=== PATIENT | female | born 1950 | race Caucasian/White ===

== ENCOUNTER 2024-11-18 21:29 | Inpatient (IN) ==
--- NOTE | 2024-11-18 22:10 | Emergency Department Note ---
History of Present Illness General Chief complaint: Syncope (Near Syncope) Stated complaint: Near Syncope, Dizziness Time Seen by Provider: 11/18/24 21:39 History of Present Illness Maximum Pain Intensity: 0 This 74-year-old female with a history of iron deficiency anemia on iron tablets since May presents to the ER feeling unwell for the past 3 days and near syncope today. Patient states she feels like her anemia is getting worse. Colonoscopy in the past was normal. No recent endoscopy. She takes Motrin 40 mg twice daily along with a PPI. Patient denies chest pain, dyspnea, abdominal pain, black or blood in the stool, fever, chills, flulike illness, leg pain or swelling. No history of heart failure. No other blood thinners. No heart attack or stroke. Home Medications Medication Instructions Recorded Confirmed Type Collagen Tablets 1 dose PO DAILY 11/18/24 11/18/24 History atenolol 25 mg tablet 25 mg PO DAILY 11/18/24 11/18/24 History clonidine HCl 0.1 mg tablet 0.1 mg PO BID 11/18/24 11/18/24 History escitalopram oxalate 10 mg tablet 15 mg PO DAILY 11/18/24 11/18/24 History ferrous sulfate 325 mg (65 mg 325 mg PO DAILY 11/18/24 11/18/24 History iron) tablet (iron) ibuprofen 200 mg tablet 400 mg PO BID ARTHRITIS PAIN 11/18/24 11/18/24 History inulin 2 gram chewable tablet 2 g PO DAILY 11/18/24 11/18/24 History montelukast 10 mg tablet 10 mg PO DAILY 11/18/24 11/18/24 History omeprazole magnesium 20 mg 20 mg PO DAILY 11/18/24 11/18/24 History tablet,delayed release (Prilosec OTC) potassium chloride 10 mEq 10 meq PO DAILY 11/18/24 11/18/24 History tablet,extended release rosuvastatin 10 mg tablet 10 mg PO DAILY 11/18/24 11/18/24 History Allergies Allergy/AdvReac Type Severity Reaction Status Date / Time sunflower oil Allergy Severe Anaphylaxis Verified 11/18/24 22:37 /HIVES sunflower seed Allergy Severe Anaphylaxis Verified 11/18/24 22:37 /HIVES gluten Allergy Intermediate Gastrointestinal Verified 11/18/24 22:37 Upset Past Med/Surg History Problem List (Updated 11/18/24 @ 23:42 by Jennifer Yun PA-C) UTI (urinary tract infection) Obesity hypoventilation syndrome Symptomatic anemia (Acute) Dysuria Pre-syncope (Acute) GI bleed due to NSAIDs (Acute) Dyslipidemia Environmental and seasonal allergies Hypertension Medical History Dyslipidemia Environmental and seasonal allergies Hypertension Surgical History History of breast reconstruction History of colonoscopy History of gastric bypass History of mastectomy Social History Smoking Status: Never smoker Preferred Language: Estonian Feels Safe at Home: Yes Review of Systems A total of 10 systems reviewed and were otherwise negative Physical Exam Vital Signs Vital Signs - 24 hr 11/18/24 21:30 11/18/24 21:35 11/18/24 21:37 Temperature 36.8 C Temperature Source Oral Pulse Rate - Lying Pulse Rate - Sitting Pulse Rate - Standing Pulse Rate 84 96 H Pulse Rate from SpO2 Sensor Respiratory Rate 21 Respiratory Effort / Characteristics Non-Labored Spontaneous Respiratory Depth Normal Respiratory Pattern Regular Blood Pressure - Lying Blood Pressure - Sitting Blood Pressure- Standing Blood Pressure 182/95 H 126/97 Blood Pressure Mean 124 108 Blood Pressure Position Lying Pulse Oximetry 97 Oxygen Delivery Method Room Air Sepsis Recent Fever Within 48 Hours No Sepsis New/Unexplained Change in Mental Status No Sepsis Action Taken by Nursing No Action Required 11/18/24 21:41 11/18/24 21:45 11/18/24 21:45 Temperature Temperature Source Pulse Rate - Lying 84 Pulse Rate - Sitting 97 H Pulse Rate - Standing 139 H Pulse Rate Pulse Rate from SpO2 Sensor Respiratory Rate Respiratory Effort / Characteristics Respiratory Depth Respiratory Pattern Blood Pressure - Lying 182/95 H Blood Pressure - Sitting 178/111 H Blood Pressure- Standing 126/97 Blood Pressure 169/106 H Blood Pressure Mean 141 Blood Pressure Position Pulse Oximetry 97 Oxygen Delivery Method Room Air Sepsis Recent Fever Within 48 Hours Sepsis New/Unexplained Change in Mental Status Sepsis Action Taken by Nursing 11/18/24 21:45 11/18/24 22:03 11/18/24 22:21 Temperature Temperature Source Pulse Rate - Lying Pulse Rate - Sitting Pulse Rate - Standing Pulse Rate 97 H 98 H 103 H Pulse Rate from SpO2 Sensor 99 H 96 H 106 H Respiratory Rate 18 13 23 Respiratory Effort / Characteristics Respiratory Depth Respiratory Pattern Blood Pressure - Lying Blood Pressure - Sitting Blood Pressure- Standing Blood Pressure Blood Pressure Mean Blood Pressure Position Pulse Oximetry 98 97 94 Oxygen Delivery Method Sepsis Recent Fever Within 48 Hours Sepsis New/Unexplained Change in Mental Status Sepsis Action Taken by Nursing 11/18/24 23:03 11/18/24 23:18 11/18/24 23:18 Temperature Temperature Source Pulse Rate - Lying Pulse Rate - Sitting Pulse Rate - Standing Pulse Rate 150 H 88 91 H Pulse Rate from SpO2 Sensor 85 Respiratory Rate 24 17 Respiratory Effort / Characteristics Respiratory Depth Respiratory Pattern Blood Pressure - Lying Blood Pressure - Sitting Blood Pressure- Standing Blood Pressure Blood Pressure Mean Blood Pressure Position Pulse Oximetry 97 Oxygen Delivery Method Sepsis Recent Fever Within 48 Hours Sepsis New/Unexplained Change in Mental Status Sepsis Action Taken by Nursing 11/18/24 23:21 11/18/24 23:33 Temperature Temperature Source Pulse Rate - Lying Pulse Rate - Sitting Pulse Rate - Standing Pulse Rate 88 105 H Pulse Rate from SpO2 Sensor 88 102 H Respiratory Rate 18 23 Respiratory Effort / Characteristics Respiratory Depth Respiratory Pattern Blood Pressure - Lying Blood Pressure - Sitting Blood Pressure- Standing Blood Pressure Blood Pressure Mean Blood Pressure Position Pulse Oximetry 99 95 Oxygen Delivery Method Sepsis Recent Fever Within 48 Hours Sepsis New/Unexplained Change in Mental Status Sepsis Action Taken by Nursing VITALS: Vitals are noted on the nurse's note and reviewed by myself. Vital signs stable. GENERAL: Pleasant female, in no acute distress, nondiaphoretic, well-developed well-nourished. SKIN: The skin was without rashes, erythema, edema, or bruising. There is no tenting of the skin. Capillary reflex less than 2 seconds. HEAD: Normocephalic atraumatic. EARS: External auditory canals clear EYES: Pupils equal round and reactive to light and accommodation. Conjunctivae without injection, sclerae without icterus. Extraocular movements intact. NOSE: Patent, no discharge. MOUTH: Mucous membranes moist. Pharynx without erythema or exudate. Uvula midline. Airway patent. Tongue does not deviate. NECK: Supple without nuchal rigidity. No lymphadenopathy. No thyromegaly. Cervical spine is nontender. No JVD. HEART: Regular rate and rhythm LUNGS: Clear to auscultation bilaterally without wheezes, rales or rhonchi. No retractions or accessory muscle use. ABDOMEN: Positive bowel sounds x 4. Normal tympanic percussion. Soft, nontender, without masses or organomegaly. Gaines sign negative. No guarding or rebound tenderness. No CVA tenderness Rectal Exam: Dark stool, guaiac positive. Mangle Roller present of the nurse MUSCULOSKELETAL: No muscle atrophy, erythema, or edema noted. NEURO: Patient was alert and oriented to person place and time. Normal sensation to light and sharp touch. No focal neurological deficits. Course Administered Medications Discontinued Medications Sodium Chloride (Nss) 500 mls @ 999 mls/hr IV .Q31M ONE Stop: 11/18/24 22:15 Last Infusion: 11/18/24 23:29 Dose: Infused Documented By: Admin: 11/18/24 22:25 Dose: 999 mls/hr Documented By: DENNISE Pantoprazole Sodium 80 mg/ (Dextrose) 120 mls @ 480 mls/hr IV ONE STA Stop: 11/18/24 22:59 Last Admin: 11/18/24 23:02 Dose: 480 mls/hr Documented By: ARIELLA Famotidine (Pepcid 20mg Iv Push) 20 mg in 5 mls @ 2.5 mls/min IV NOW STA Stop: 11/18/24 22:46 Last Admin: 11/18/24 23:03 Dose: 2.5 mls/min Documented By: ARIELLA Critical Care Time Critical Care Time: Yes Total Critical Care Time: 35 I have personally spent 35 minutes of critical care time in the direct management of this patient. This includes bedside care, interpretation of diagnostic studies, and testing, discussion with consultants, patient, and family members, and other required patient management activities. This 35 minutes is in excess of all separately billable procedures. Medical Decision Making Medical Records Attestation: I reviewed the patient's medical records. Home Medications Current Medication List: was personally reviewed by me Laboratory Data Attestation: I reviewed the patient's lab results. 11/18/24 22:31 11/18/24 22:31 Lab Results 11/18/24 11/18/24 11/18/24 Range/Units 21:57 22:31 22:36 WBC 10.61 (4.8-10.8) K/ul RBC 3.07 L (4.20-5.40) M/uL Hgb 7.8 L (12.0-16.0) g/dl POC Hgb 8.2 L (12.0-16.0) g/dl Hct 24.8 L (37.0-47.0) % POC Hct 24 L (37-47) % MCV 80.8 (80.0-100.0) fL MCH 25.4 (25.0-34.0) pg MCHC 31.5 L (32.0-36.0) g/dL RDW Std Deviation 51.0 H (36.4-46.3) fL RDW Coeff of Farooq 17.7 H (11.5-14.5) % Plt Count 305 (130-400) K/uL MPV 10.2 (9.4-12.4) fL Immature Gran % (Auto) 0.6 % Neut % (Auto) 73.9 % Lymph % (Auto) 17.0 % [place] % (Auto) 6.8 % Eos % (Auto) 1.1 % Baso % (Auto) 0.6 % Neut # (Auto) 7.85 H (1.40-6.50) K/uL Lymph # (Auto) 1.80 (1.20-3.40) K/uL [place]ks # (Auto) 0.72 H (0.11-0.59) K/uL Eos # (Auto) 0.12 (0.00-0.50) K/uL Baso # (Auto) 0.06 (0.00-0.20) K/uL Immature Gran # (Auto) 0.06 (0.01-0.20) K/uL Polychromasia 1+ Ovalocytes 1+ POC Sodium 136 (135-144) mmol/L Sodium 135 L (136-145) mmol/L POC Potassium 4.5 (3.3-5.0) mmol/L Potassium 4.3 (3.5-5.1) mmol/L POC Chloride 105 (101-112) mmol/L Chloride 105 (98-107) mmol/L Carbon Dioxide 21 (21-32) mmol/L POC Total CO2 23 L (24-31) mmol/L Anion Gap 9 (3-11) POC Anion Gap 13.0 L (16-25) mmol/L POC BUN 39 H (7-18) mg/dl BUN 39 H (6-23) mg/dl Creatinine 0.78 (0.6-1.2) mg/dl POC Creatinine 0.9 (0.6-1.3) mg/dl Est Cr Clr Drug Dosing 74.3 ml/min eGFR 80.15 BUN/Creatinine Ratio 50.0 H (10-20) Glucose 163 H (70-99(Fasting)) mg/dl POC Glucose (other) 160 H (70-99) mg/dl Calcium 9.4 (8.6-10.3) mg/dl POC Ioniz Calcium Alicia 1.15 (1.12-1.32) mmol/l Magnesium 1.9 (1.7-2.4) mg/dl Total Bilirubin 0.3 (0.2-1.0) mg/dl AST 18 (13-39) U/L ALT 14 (7-52) U/L Alkaline Phosphatase 49 (34-104) U/L Troponin I High Sens < 2.3 (0-14) pg/ml Total Protein 6.4 (6.0-8.3) gm/dl Albumin 3.9 (3.4-5.0) gm/dl Globulin 2.5 (2.5-4.0) gm/dl Albumin/Globulin Ratio 1.6 (0.9-2) TSH 2.282 (0.300-4.500) uIu/ml Urine Color Urine Appearance (Clear) Urine pH (4.5-7.5) Ur Specific [place] (1.000-1.030) Urine Protein (Negative) Urine Glucose (UA) (Negative) Urine Ketones (Negative) Urine Blood (Negative) Urine Nitrite (Negative) Urine Bilirubin (Negative) Urine Urobilinogen (Negative) Ur Leukocyte Esterase (Negative) Urine WBC (Auto) (0-5) /hpf Urine RBC (Auto) (0-2) /hpf U Hyaline Cast (Auto) (0-2) /lpf U Epithel Cells (Auto) (0-2) /hpf Urine Bacteria (Auto) (None Seen) Adenovirus (PCR) Not Detected (NotDetected) B. pertussis DNA (PCR) Not Detected (NotDetected) B.parapertussis DNA PCR Not Detected (NotDetected) C. pneumoniae DNA (PCR) Not Detected (NotDetected) Coronavirus OC43 (PCR) Not Detected (NotDetected) Coronavirus HKU1 (PCR) Not Detected (NotDetected) Coronavirus 229E (PCR) Not Detected (NotDetected) SARS-CoV-2 (PCR) Not Detected (NotDetected) Coronavirus NL63 (PCR) Not Detected (NotDetected) Human Metapneumovir PCR Not Detected (NotDetected) Influenza Type A (PCR) Not Detected (NotDetected) Influenza Type B (PCR) Not Detected (NotDetected) M. pneumoniae (PCR) Not Detected (NotDetected) Parainfluenza 1 (PCR) Not Detected (NotDetected) Parainfluenza 2 (PCR) Not Detected (NotDetected) Parainfluenza 3 (PCR) Not Detected (NotDetected) Parainfluenza 4 (PCR) Not Detected (NotDetected) RSV (PCR) Not Detected (NotDetected) Entero/Rhino (PCR) Not Detected (NotDetected) Crossmatch 11/18/24 11/18/24 Range/Units 23:03 23:18 WBC (4.8-10.8) K/ul RBC (4.20-5.40) M/uL Hgb (12.0-16.0) g/dl POC Hgb (12.0-16.0) g/dl Hct (37.0-47.0) % POC Hct (37-47) % MCV (80.0-100.0) fL MCH (25.0-34.0) pg MCHC (32.0-36.0) g/dL RDW Std Deviation (36.4-46.3) fL RDW Coeff of Farooq (11.5-14.5) % Plt Count (130-400) K/uL MPV (9.4-12.4) fL Immature Gran % (Auto) % Neut % (Auto) % Lymph % (Auto) % [place] % (Auto) % Eos % (Auto) % Baso % (Auto) % Neut # (Auto) (1.40-6.50) K/uL Lymph # (Auto) (1.20-3.40) K/uL [place] # (Auto) (0.11-0.59) K/uL Eos # (Auto) (0.00-0.50) K/uL Baso # (Auto) (0.00-0.20) K/uL Immature Gran # (Auto) (0.01-0.20) K/uL Polychromasia Ovalocytes POC Sodium (135-144) mmol/L Sodium (136-145) mmol/L POC Potassium (3.3-5.0) mmol/L Potassium (3.5-5.1) mmol/L POC Chloride (101-112) mmol/L Chloride (98-107) mmol/L Carbon Dioxide (21-32) mmol/L POC Total CO2 (24-31) mmol/L Anion Gap (3-11) POC Anion Gap (16-25) mmol/L POC BUN (7-18) mg/dl BUN (6-23) mg/dl Creatinine (0.6-1.2) mg/dl POC Creatinine (0.6-1.3) mg/dl Est Cr Clr Drug Dosing ml/min eGFR BUN/Creatinine Ratio (10-20) Glucose (70-99(Fasting)) mg/dl POC Glucose (other) (70-99) mg/dl Calcium (8.6-10.3) mg/dl POC Ioniz Calcium Alicia (1.12-1.32) mmol/l Magnesium (1.7-2.4) mg/dl Total Bilirubin (0.2-1.0) mg/dl AST (13-39) U/L ALT (7-52) U/L Alkaline Phosphatase (34-104) U/L Troponin I High Sens (0-14) pg/ml Total Protein (6.0-8.3) gm/dl Albumin (3.4-5.0) gm/dl Globulin (2.5-4.0) gm/dl Albumin/Globulin Ratio (0.9-2) TSH (0.300-4.500) uIu/ml Urine Color Yellow Urine Appearance Clear (Clear) Urine pH 5.5 (4.5-7.5) Ur Specific [place] 1.018 (1.000-1.030) Urine Protein Negative (Negative) Urine Glucose (UA) Negative (Negative) Urine Ketones Trace H (Negative) Urine Blood Negative (Negative) Urine Nitrite Positive A (Negative) Urine Bilirubin Negative (Negative) Urine Urobilinogen Negative (Negative) Ur Leukocyte Esterase 1+ H (Negative) Urine WBC (Auto) 6-10 H (0-5) /hpf Urine RBC (Auto) 0-2 (0-2) /hpf U Hyaline Cast (Auto) 0-2 (0-2) /lpf U Epithel Cells (Auto) 0-2 (0-2) /hpf Urine Bacteria (Auto) 4+ H (None Seen) Adenovirus (PCR) (NotDetected) B. pertussis DNA (PCR) (NotDetected) B.parapertussis DNA PCR (NotDetected) C. pneumoniae DNA (PCR) (NotDetected) Coronavirus OC43 (PCR) (NotDetected) Coronavirus HKU1 (PCR) (NotDetected) Coronavirus 229E (PCR) (NotDetected) SARS-CoV-2 (PCR) (NotDetected) Coronavirus NL63 (PCR) (NotDetected) Human Metapneumovir PCR (NotDetected) Influenza Type A (PCR) (NotDetected) Influenza Type B (PCR) (NotDetected) M. pneumoniae (PCR) (NotDetected) Parainfluenza 1 (PCR) (NotDetected) Parainfluenza 2 (PCR) (NotDetected) Parainfluenza 3 (PCR) (NotDetected) Parainfluenza 4 (PCR) (NotDetected) RSV (PCR) (NotDetected) Entero/Rhino (PCR) (NotDetected) Crossmatch See Detail Imaging Data Attestation: I personally reviewed and interpreted this imaging study as follows: Radiologist's Impression: Chest X-Ray 11/18/24 21:45 Exam(s): XR CXR 1 VIEW EXAM: XR Chest, 1 View CLINICAL HISTORY: Reason for exam: near syncope, weakness. TECHNIQUE: Frontal view of the chest. COMPARISON: 03/24/2022. FINDINGS: Lungs: No consolidation. Pleural space: No pleural effusion is seen. No pneumothorax. Heart: The heart is top normal in size.. Mediastinum: There is mild uncoiling of thoracic aorta.. . Additional: Surgical clips are again noted IMPRESSION: No acute pulmonary disease. Findings appears similar to previous exam Electronically signed by: Solo Calvert MD 11/18/24 22:[address] 11/18/24 22:23 Exam(s): CT HEAD Without Contrast EXAM: CT Head Without Intravenous Contrast CLINICAL HISTORY: Reason for exam: weakness, hx breast CA, syncope. TECHNIQUE: Axial computed tomography images of the head/brain without intravenous contrast. CTDI is 38.64 mGy and DLP is 625.8 mGy-cm. Automated exposure control was utilized for the study. A dose lowering technique was utilized adhering to the principles of ALARA. COMPARISON: No relevant prior studies available. FINDINGS: Brain: No acute intracranial hemorrhage. There is decreased attenuation within the white matter. 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 Ventricles: There is prominence of ventricular system with deepening of the sulci consistent with cortical and central atrophy. Bones/joints: Unremarkable. No acute fracture. Soft tissues: Unremarkable. Sinuses: There is near complete opacification of the right maxillary sinus.. Mastoid air cells: Unremarkable as visualized. No mastoid effusion. IMPRESSION: Atrophy. Nonspecific white matter disease. 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 There is right maxillary sinus disease. If further evaluation is clinically necessary, consider correlation with MRI. Electronically signed by: Solo Calvert MD 11/18/24 23:07 PM MDM Narrative Prior records/ancillary studies reviewed and summarized above. Nursing notes reviewed. Additional history obtained from nursing. The patient's history was concerning for increasing weakness for the past 3 days. Differential diagnosis: Etiologies such as worsening anemia, metabolic, infection, hypo/hyperglycemia, electrolyte abnormalities, cardiac sources, intracerebral event, toxicologic, neurologic, as well as others were entertained. Physical examination: As above. ER treatment provided: IV Lock An order was placed for continuous cardiac monitoring. The monitor shows a rate of 60-100 with a sinus rhythm per my interpretation. IV fluids, protonix, pepcid, Rocephin for UTI Patient was consented to blood and was typed and crossmatched for 1 unit On reassessment the patient felt better. Diagnostics interpretation by me: ECG: Ordered for weakness EKG: Poor baseline, normal sinus, no acute ST-T wave changes, rate of 98. Impression normal sinus rhythm poor baseline independently interpreted by myself The labs Independently Interpreted by myself revealed anemia which is worse than baseline per review of the [facility] records Negative troponin. Negative BioFire Mild hyperglycemia without DKA, urine concerning for infection and sent for culture. Patient given Rocephin Imaging studies: Chest x-ray with no acute consolidation, pneumothorax or free air per my independent interpretation Consultation: A consultation was placed with the hospitalist. The case was discussed and diagnostics were reviewed. The patient was evaluated in the ER for further treatment. Exam and history seem consistent with symptomatic anemia most likely related to NSAID use. Patient was typed and crossmatched for 1 unit. She was consented for blood. She started Protonix and Pepcid. She was reevaluated. Hemoccult was positive. She is agreeable to treatment plan of admission. Medicine was consulted and the case was discussed. By the evaluation outlined above emergent etiologies such as electrolyte abnormalities, cardiac sources, intracerebral event, toxologic, neurologic, metabolic, as well as others were deemed relatively unlikely. The pt informed about the findings as listed above. All questions were answered and pleased with the treatment. The chart was completed utilizing [employer] Speech voice recognition software. Grammatical errors, random word insertions, pronoun errors, and incomplete sentences are an occassional consequence of this system due to software limitations, ambient noise, and hardware issues. Any formal questions or concerns about the content, text, or information contained within the body of this dictation should be directly addressed to the physician assistant program manager for clarification. Impression & Plan GI bleed due to NSAIDs, Pre-syncope, Symptomatic anemia Discharge Plan Visit Data Chief Complaint: Syncope (Near Syncope) Stated Complaint: Near Syncope, Dizziness ED Provider: Landon Chilel ED Midlevel Provider: Jaylin Guerra Discharge Problem: GI bleed due to NSAIDs, Pre-syncope, Symptomatic anemia Patient Disposition: Admitted As Inpatient Condition: Fair Forms Stand Alone Forms: [facility] [employer] Prescriptions Prescriptions: No Action clonidine HCl 0.1 mg tablet 0.1 mg PO BID atenolol 25 mg tablet 25 mg PO DAILY potassium chloride 10 mEq tablet extended release 10 meq PO DAILY ferrous sulfate [iron] 325 mg (65 mg iron) Tablet 325 mg PO DAILY ibuprofen 200 mg Tablet 400 mg PO BID montelukast 10 mg tablet 10 mg PO DAILY escitalopram oxalate 10 mg tablet 15 mg PO DAILY rosuvastatin 10 mg tablet 10 mg PO DAILY omeprazole magnesium [Prilosec OTC] 20 mg Tablet,Delayed Release (Dr/Ec) 20 mg PO DAILY Fiber Gummies 2 gram Tablet,Chewable 2 g PO DAILY Collagen Tablets 1 dose PO DAILY Rx Instructions: PT UNSURE OF STRENGTH. Referrals Referrals: Ann Abbasi MD [Primary Care Provider] -
[2024-11-18] MEDS: SODIUM CHLORIDE 0.9% 500 ML IV ONE (22:25)
[2024-11-18 22:48] LABS: iSTAT Creatinine 0.9 mg/dl (0.6-1.3); iSTAT Hemoglobin 8.2 g/dl (12.0-16.0); iSTAT Ionized Calcium 1.15 mmol/l (1.12-1.32); iSTAT Potassium 4.5 mmol/L (3.3-5.0)
[2024-11-18 22:50] LABS: Basophils # (auto) 0.06 K/uL (0.00-0.20); Basophils % (auto) 0.6 %; Eosinophils # (auto) 0.12 K/uL (0.00-0.50); Eosinophils % (auto) 1.1 %; Hematocrit (blood only) 24.8 % (37.0-47.0); Hemoglobin 7.8 g/dl (12.0-16.0); Immature Granulocytes # (auto) 0.06 K/uL (0.01-0.20); Immature Granulocytes % (auto) 0.6 %; Mean Corpuscular Hemoglobin 25.4 pg (25.0-34.0); Mean Corpuscular Hgb Conc 31.5 g/dL (32.0-36.0); Mean Corpuscular Volume 80.8 fL (80.0-100.0); Mean Platelet Volume 10.2 fL (9.4-12.4); Monocytes # (auto) 0.72 K/uL (0.11-0.59); Monocytes % (auto) 6.8 %; Neutrophils # (auto) 7.85 K/uL (1.40-6.50); Neutrophils % (auto) 73.9 %; Platelet Count 305 K/uL (130-400); RDW Coefficient of Variation 17.7 % (11.5-14.5); Red Blood Count 3.07 M/uL (4.20-5.40); White Blood Count 10.61 K/ul (4.8-10.8)
--- NOTE | 2024-11-18 22:54 | XRay Report ---
Exam(s): XR CXR 1 VIEW EXAM: XR Chest, 1 View CLINICAL HISTORY: Reason for exam: near syncope, weakness. TECHNIQUE: Frontal view of the chest. COMPARISON: 03/24/2022. FINDINGS: Lungs: No consolidation. Pleural space: No pleural effusion is seen. No pneumothorax. Heart: The heart is top normal in size.. Mediastinum: There is mild uncoiling of thoracic aorta.. . Additional: Surgical clips are again noted IMPRESSION: No acute pulmonary disease. Findings appears similar to previous exam Electronically signed by: Solo Calvert MD 11/18/24 22:52 PM
[2024-11-18 22:57] LABS: Adenovirus PCR Not Detected (NotDetected); Bordetella parapertussis PCR Not Detected (NotDetected); Bordetella pertussis PCR Not Detected (NotDetected); Chlamydia pneumoniae PCR Not Detected (NotDetected); Coronavirus 229E PCR Not Detected (NotDetected); Coronavirus CoV-2 (COVID19)PCR Not Detected (NotDetected); Coronavirus HKU1 PCR Not Detected (NotDetected); Coronavirus NL63 PCR Not Detected (NotDetected); Coronavirus OC43PCR Not Detected (NotDetected); Human Metapneumovirus PCR Not Detected (NotDetected); Influenza A PCR Not Detected (NotDetected); Influenza B PCR Not Detected (NotDetected); Mycoplasma pneumoniae PCR Not Detected (NotDetected); Parainfluenza Virus 1 PCR Not Detected (NotDetected); Parainfluenza Virus 2 PCR Not Detected (NotDetected); Parainfluenza Virus 3 PCR Not Detected (NotDetected); Parainfluenza Virus 4 PCR Not Detected (NotDetected); Respiratory Syncytial VirusPCR Not Detected (NotDetected); Rhinovirus/Enterovirus PCR Not Detected (NotDetected)
[2024-11-18] MEDS: PANTOprazole 80 MG in DEXTROSE 5% 100 ML IV STA (23:02)
[2024-11-18] MEDS: FAMOTIDINE 20MG IV PUSH 20 MG/5 ML SYR IV STA (23:03)
[2024-11-18 23:05] LABS: Ovalocytes 1+; Polychromasia 1+
[2024-11-18] MEDS ORDERED: SODIUM CHLORIDE 0.9% 100 ML IV PRN (23:08)
--- NOTE | 2024-11-18 23:08 | CT Scan Report ---
Exam(s): CT HEAD Without Contrast EXAM: CT Head Without Intravenous Contrast CLINICAL HISTORY: Reason for exam: weakness, hx breast CA, syncope. TECHNIQUE: Axial computed tomography images of the head/brain without intravenous contrast. CTDI is 38.64 mGy and DLP is 625.8 mGy-cm. Automated exposure control was utilized for the study. A dose lowering technique was utilized adhering to the principles of ALARA. COMPARISON: No relevant prior studies available. FINDINGS: Brain: No acute intracranial hemorrhage. There is decreased attenuation within the white matter. 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 Ventricles: There is prominence of ventricular system with deepening of the sulci consistent with cortical and central atrophy. Bones/joints: Unremarkable. No acute fracture. Soft tissues: Unremarkable. Sinuses: There is near complete opacification of the right maxillary sinus.. Mastoid air cells: Unremarkable as visualized. No mastoid effusion. IMPRESSION: Atrophy. Nonspecific white matter disease. 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 There is right maxillary sinus disease. If further evaluation is clinically necessary, consider correlation with MRI. Electronically signed by: Solo Calvert MD 11/18/24 23:07 PM
[2024-11-18 23:11] LABS: Troponin I High Sensitivity < 2.3 pg/ml (0-14)
[2024-11-18 23:20] LABS: Thyroid Stimulating Hormone 2.282 uIu/ml (0.300-4.500)
--- NOTE | 2024-11-18 23:22 | History & Physical Report ---
Date of Service November 18, 2024 Assessment & Plan (1) GI bleed due to NSAIDs: (2) Pre-syncope: (3) UTI (urinary tract infection): (4) Obesity hypoventilation syndrome: (5) Hypertension: Plan Patient is a 74-year-old female with past medical history of allergies, hypertension, hyperlipidemia, GERD. She presented to the ED via EMS due to a near syncopal event, she reports dizziness, lightheadedness, nausea, dry heaving, and burning with urination. She also endorses dark stools and is on chronic Motrin 400 Mg twice daily. Patient was found to have a hemoglobin drop from around 15to 7.8 and Hemoccult positive. She is being admitted for a GI bleed. 1 unit PRBC ordered in ED to be transfused at time of admission. #GI bleed on chronic Motrin 400 Mg twice daily, history of CLAIRE on iron supplements hx of gastric bypass VSS Hemoccult positive in ED BUN 39 hemoglobin 7.8 (baseline reported around 15) TSH WNL Protonix 40 mg IV twice daily and Pepcid 20 mg IV BID N.p.o. - will hold p.o. medications - received 500 mL NSS bolus in ED, continue IVF resuscitation with LR at 80 mL/hour x 1 bag 1 unit PRBC ordered to be transfused in ED H&H recheck after 1 unit transfused trend CBC GI consulted #Presyncopal event Suspect 2/2 symptomatic anemia as above CXR negative Head CT showed fusiform dilation of basilar artery, right maxillary sinus disease consider correlation with MRI if clinically indicated Troponin < 2.3 Bedrest and fall precautions 500 mL NSS bolus in ED anticipate to improve with correction of above Monitor on telemetry #UTI Patient with dysuria UA positive for nitrates, 1+ leukocyte esterase, 6-10 WBC, 4+ bacteria No previous urine cultures on file Will cover with Rocephin 1G IV q24h Follow urine cultures #Obesity hypoventilation syndrome became hypoxic when she sat up in bed at 79% on room air, improved with deep breaths CXR negative oxygen as needed for O2 less than 94% Incentive spirometry ordered #HTN holding atenolol and clonidine with n.p.o. status monitor for rebound HTN with holding clonidine Lopressor 5mg IV q6h prn for SBP >185 and DBP >95 Chronic stable diagnoses: Anxiety/depressionholding escitalopram HLDholding statin VTE ppx: SCDs, defer chemical PPx with GI bleed above Diet: n.p.o. Dispo: PCU Admission and Anticipated Discharge Date Admission Date: 11/18/24 History of Present Illness Chief Complaint: syncope Primary Care Provider: Ann Abbasi MD Patient is a 74-year-old female with past medical history of allergies, hypertension, hyperlipidemia, GERD, hx of gastric bypass. She presented to the ED via EMS due to a near syncopal event, she reports dizziness, lightheadedness, nausea, dry heaving, and burning with urination. She also endorses dark stools and is on chronic Motrin 400 Mg twice daily. Patient was found to have a hemoglobin drop from around 15to 7.8 and Hemoccult positive. She is being admitted for a GI bleed. 1 unit pRBC ordered in ED to be transfused at time of admission. Patient seen at bedside with her daughter present. She has a history of gastric bypass. She stated she had a colonoscopy approximately 1 year ago possibly with [facility] that she stated showed a few polyps but no other abnormalities. She has never had an EGD. She came into the ED today because she felt like she was going to pass out when she was going to the bathroom with dizziness, lightheadedness, and fatigue. She stated for quite a while she has had dizziness, lightheadedness, fatigue, dyspnea on exertion. She was started on an iron supplement in May for iron deficiency anemia. When the symptoms began she started taking 2 a day which seemed to resolve her symptoms at first but now her symptoms have returned. She has no history of GI bleeds. She has been taking Motrin 400 Mg twice daily with omeprazole for several years. She has had dark brown stool, denies it being black for several months since starting the iron supplement. She denies any bright red blood in stool or vomiting up any bright red blood. Patient also endorses burning with urination for several days. She does not use nicotine products or drink alcohol daily. She has no history of lung disorders like COPD, asthma, JUAN. She took her home medications this morning but is due for her evening medications, will hold given n.p.o. status. She wishes to be full code. Patient agreeable to plan and 1 unit PRBC transfusion. Allergies Allergy/AdvReac Type Severity Reaction Status Date / Time sunflower oil Allergy Severe Anaphylaxis Verified 11/18/24 22:37 /HIVES sunflower seed Allergy Severe Anaphylaxis Verified 11/18/24 22:37 /HIVES gluten Allergy Intermediate Gastrointestinal Verified 11/18/24 22:37 Upset Home Medications Medication Instructions Recorded Confirmed Type Collagen Tablets 1 dose PO DAILY 11/18/24 11/18/24 History atenolol 25 mg tablet 25 mg PO DAILY 11/18/24 11/18/24 History clonidine HCl 0.1 mg tablet 0.1 mg PO BID 11/18/24 11/18/24 History escitalopram oxalate 10 mg tablet 15 mg PO DAILY 11/18/24 11/18/24 History ferrous sulfate 325 mg (65 mg 325 mg PO DAILY 11/18/24 11/18/24 History iron) tablet (iron) ibuprofen 200 mg tablet 400 mg PO BID ARTHRITIS PAIN 11/18/24 11/18/24 History inulin 2 gram chewable tablet 2 g PO DAILY 11/18/24 11/18/24 History montelukast 10 mg tablet 10 mg PO DAILY 11/18/24 11/18/24 History omeprazole magnesium 20 mg 20 mg PO DAILY 11/18/24 11/18/24 History tablet,delayed release (Prilosec OTC) potassium chloride 10 mEq 10 meq PO DAILY 11/18/24 11/18/24 History tablet,extended release rosuvastatin 10 mg tablet 10 mg PO DAILY 11/18/24 11/18/24 History Past Med/Surg History Problem List (Updated 11/18/24 @ 23:42 by Jennifer Yun PA-C) UTI (urinary tract infection) Obesity hypoventilation syndrome Symptomatic anemia (Acute) Dysuria Pre-syncope (Acute) GI bleed due to NSAIDs (Acute) Dyslipidemia Environmental and seasonal allergies Hypertension Medical History Dyslipidemia Environmental and seasonal allergies Hypertension Surgical History History of breast reconstruction History of colonoscopy History of gastric bypass History of mastectomy Social History Smoking Status: Never smoker Hx Alcohol Use: No Hx Substance Use: No Preferred Language: [place] Communication Ability: Effective 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 Non-toxic appearing. HEENT- EOMI, mucous membranes moist. Hearing grossly intact. Heart-normal S1 and S2. No murmurs, rubs or gallops. Lungs-clear bilaterally, no respiratory distress, no accessory muscle use. Abdomen-normal bowel sounds and soft. No ascites noted. Non-tender. Extremities- no clubbing, cyanosis, or edema. Rheumatologic-normal range of motion. Psychiatric-normal affect. Results & Data Results & Data Vital Signs (Past 12 Hours) Vital Signs Temp Pulse Resp BP Pulse Ox O2 Del Method 11/18/24 22:21 103 H 23 94 11/18/24 22:03 98 H 13 97 11/18/24 21:45 97 H 18 98 11/18/24 21:45 97 Room Air 11/18/24 21:41 169/106 H 11/18/24 21:37 126/97 11/18/24 21:35 96 H 11/18/24 21:30 36.8 C 84 21 182/95 H 97 Room Air Laboratory Results Reviewed CBC, CMP, magnesium, troponin, TSH, UA, bio fire Diagnostic Findings reviewed CXR and head CT Medications Administered ED500 mL NSS bolus, pantoprazole 80 Mg IV, Pepcid 20 Mg IV ECG Additional Comments: ordered Code Status & VTE Plan Code Status full VTE Prophylaxis Plan VTE Prophylaxis will be ordered: Yes Supervising Physician Co-Signing Physician Notes Attending addendum: I have physically seen this patient, have supervised the CLAUDIA's activities, and agree with the H&P unless as otherwise noted. Assessment and Plan: The patient is a 74-year-old female with past medical history including allergies, hypertension, hyperlipidemia, GERD, history of gastric bypass, and obesity. She presents to the emergency department via EMS due to a near syncopal event, reporting lightheadedness, dizziness, nausea, dry heaving and also notes burning with urination. She was been taking Motrin 40 mg twice daily for generalized osteoarthritis symptoms, and reports dark stools for a few months. Laboratories in the ED this evening with revealed a hemoglobin of 7.8, Hemoccult positive, with most recent hemoglobin months ago of 15. The patient is referred for evaluation to the emergency department for concerns of symptomatic anemia associated with GI bleeding. #Symptomatic anemia/upper GI bleed secondary to NSAIDs- History of gastric bypass, at risk for anastomotic ulcer, gastritis, gastric ulcer, esophagitis, esophageal ulcers, and others Hemoccult positive in the ED Hemoglobin has decreased from 15-7.8 Symptoms of near syncope NPO Status post normal saline 500 mL bolus in the ED, we will continue rehydration with LR at 80 mL/h x 1 L To receive 1 unit PRBCs from the ED H&H every 6 hours x 4 Continue Protonix 40 mg IV twice daily, and Pepcid 20 mg IV twice daily Consult gastroenterology. She did have a colonoscopy last year, but reports never having had an endoscopy Urinary tract infection- Follow urine culture and sensitivity Ceftriaxone 1 g IV every 24 hours Obesity hypoventilation syndrome- Significant hypoxia with pulse ox 79% on room air developed when sitting up in bed, improved with deep breathing Target pulse ox 94% with nasal cannula oxygen Incentive spirometry Hypertension/orthostatic hypotension secondary to anemia Hold atenolol and clonidine Monitor for rebound hypertension while holding clonidine Lopressor 5 mg IV every 6 hours as needed for sustained systolic blood pressure greater than 185 and /or diastolic greater than 95 Chronic stable medical conditions: Hyperlipidemia-for now hold rosuvastatin Anxiety/depression-for now hold escitalopram Arthritis pain- Patient will need to have alternative treatment for her pain instead of using NSAID related products in the future PG Care Time/CCT Total # of Minutes Spent Total Time Spent with Patient: Total time spent is greater than 50% in coordination of care (as documented) at patient's floor/unit and/or counseling patient: Coding Level of Care Code 88766 INT INP/OBS CARE 3/75MIN Diagnoses GI bleed due to NSAIDs K92.2; T39.395A Pre-syncope R55 UTI (urinary tract infection) N39.0 Obesity hypoventilation syndrome E66.2 Hypertension I10
[2024-11-18 23:30] LABS: Appearance Urine Clear (Clear); Bacteria Urine Automated 4+ (None Seen); Bilirubin Urine Negative (Negative); Blood Urine Negative (Negative); Cast Urine Automated 0-2 /lpf (0-2); Color Urine Yellow; Epithelial Cell Urine Auto 0-2 /hpf (0-2); Glucose Urine UA Negative (Negative); Ketones Urine Trace (Negative); Leukocyte Esterase Urine 1+ (Negative); Nitrite Urine Positive (Negative); Protein Urine Negative (Negative); RBC Urine Automated 0-2 /hpf (0-2); Specific Gravity Urine 1.018 (1.000-1.030); Urobilinogen Urine Negative (Negative); pH Urine 5.5 (4.5-7.5)
[2024-11-18 23:32] LABS: Albumin Level 3.9 gm/dl (3.4-5.0); Anion Gap 9 (3-11); Bilirubin,Total 0.3 mg/dl (0.2-1.0); Calcium 9.4 mg/dl (8.6-10.3); Carbon Dioxide 21 mmol/L (21-32); Chloride 105 mmol/L (98-107); Magnesium 1.9 mg/dl (1.7-2.4); Potassium 4.3 mmol/L (3.5-5.1); Sodium 135 mmol/L (136-145)
[2024-11-18 23:38] LABS: Alanine Aminotransferase 14 U/L (7-52); Albumin Globulin Ratio 1.6 (0.9-2); Alkaline Phosphatase 49 U/L (34-104); Aspartate Aminotransferase 18 U/L (13-39); Blood Urea Nitrogen 39 mg/dl (6-23); Creatinine Clr Calc Pharmacy 74.3 ml/min; Globulin 2.5 gm/dl (2.5-4.0); Glucose 163 mg/dl (70-99(Fasting)); Total Protein 6.4 gm/dl (6.0-8.3)
--- NOTE | 2024-11-18 23:47 | Emergency Department Note ---
ED Visit Note I was consulted in regards to the patient's presentation and plan of care by the Advanced Practice Provider. I engaged in a detailed/meaningful discussion with the Advanced Practice Provider in regards to this patient's workup and plan of care. I performed a substantiative portion of the medical decision making following discussion with the Advanced Practice Provider. Please see the Advanced Practice Provider's separate documentation for full details of the patient's visit. I agree with the assessment and plan of Jaylin Guerra PA-C. Landon hCilel, DO Emergency Medicine .
[2024-11-18] MEDS ORDERED: cefTRIAXone SODIUM 1,000 MG/50 ML BAG IV STA (23:58)
[2024-11-19] MEDS: cefTRIAXone SODIUM 2,000 MG/50 ML BAG IV STA (00:19)
[2024-11-19] MEDS ORDERED: METOPROLOL TARTRATE 1 MG/ML VIAL IV PRN (01:26)
[2024-11-19] MEDS: ONDANSETRON INJ 2 MG/ML 2 ML VIAL IV PRN (01:33)
[2024-11-19] MEDS: LACTATED RINGER'S 1,000 ML IV SCH (03:10)
[2024-11-19 05:51] LABS: Hematocrit (blood only) 24.3 % (37.0-47.0); Hemoglobin 7.9 g/dl (12.0-16.0)
[2024-11-19 05:52] LABS: Basophils # (auto) 0.05 K/uL (0.00-0.20); Basophils % (auto) 0.6 %; Hematocrit (blood only) 24.6 % (37.0-47.0); Hemoglobin 7.9 g/dl (12.0-16.0); Immature Granulocytes # (auto) 0.05 K/uL (0.01-0.20); Immature Granulocytes % (auto) 0.6 %; Lymphocytes % (auto) 15.2 %; Mean Corpuscular Hemoglobin 26.1 pg (25.0-34.0); Mean Corpuscular Hgb Conc 32.1 g/dL (32.0-36.0); Mean Corpuscular Volume 81.2 fL (80.0-100.0); Mean Platelet Volume 9.8 fL (9.4-12.4); Monocytes # (auto) 0.53 K/uL (0.11-0.59); Monocytes % (auto) 6.2 %; Neutrophils # (auto) 6.62 K/uL (1.40-6.50); Neutrophils % (auto) 77.4 %; Nucleated RBC # (auto) 0.03 K/uL (0.00-0.12); Nucleated RBC % (auto) 0.4 %; Platelet Count 260 K/uL (130-400); RDW Coefficient of Variation 17.2 % (11.5-14.5); RDW Standard Deviation 50.3 fL (36.4-46.3); Red Blood Count 3.03 M/uL (4.20-5.40); White Blood Count 8.55 K/ul (4.8-10.8)
[2024-11-19 06:04] LABS: BUN Creatinine Ratio 54.8 (10-20); Calcium 8.7 mg/dl (8.6-10.3); Creatinine Clr Calc Pharmacy 80.5 ml/min; Magnesium 1.7 mg/dl (1.7-2.4); Potassium 4.6 mmol/L (3.5-5.1)
[2024-11-19 06:25] LABS: Polychromasia 1+
--- NOTE | 2024-11-19 07:36 | Hospitalist Progress Note ---
Date of Service November 19, 2024 Assessment & Plan (1) GI bleed due to NSAIDs: (2) Pre-syncope: (3) UTI (urinary tract infection): (4) Obesity hypoventilation syndrome: (5) Hypertension: Plan #GI bleed - on chronic Motrin 400 Mg twice daily, history of CLAIRE on iron supplements since May - hx of gastric bypass 23 years ago - stool hemoccult positive in ED - hemoglobin 7.8 on admission - s/p 1 unit PRBC - EGD today: Normal gastric mucosa. No ulcer. 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 - Monitor on telemetry #UTI - Patient with dysuria - UA positive for nitrates, 1+ leukocyte esterase, 6-10 WBC, 4+ bacteria - Will cover with Rocephin 1G IV q24h - Follow urine cultures #Obesity hypoventilation syndrome - became hypoxic when she sat up in bed at 79% on room air, improved with deep breaths - CXR negative - oxygen as needed for O2 less than 94% - Incentive spirometry ordered #HTN - holding atenolol and clonidine with n.p.o. status - monitor for rebound HTN with holding clonidine - Lopressor 5mg IV q6h prn for SBP >185 and DBP >95 Chronic stable diagnoses: Anxiety/depressionholding escitalopram HLDholding statin VTE ppx: SCDs, defer chemical PPx with GI bleed above Diet: n.p.o. Dispo: PCU Admission and Anticipated Discharge Date Admission Date: November 18, 2024 Supervising Physician Co-Signing Physician Notes I personally examined the patient and verified all horn points of history and exam, discussed case, and agree with decision making with Dr Velasquez Salazar and Chasidy Guevara MS4 feeling better - still fast heartrate and some SOB when she got up - but seems better, and definitely no flushing/feeling faint/sweats vitals noted nad heent nc at mmm breathing unlabored no accessory muscles good effort skin without rashes pallor or icterus (her dtr notes her color is much better than it was) near syncope/fatigue/ZAYAS -most likely ddx is acute/subacute blood loss anemia from GI bleed - given that she is starting to feel better after 1 unit PRBC and IV fluids - this fits as well. scope negative but post op anatomy leaves significant potential for PUD that can't be visualized w EGD. Hgb now improving. continue acid suppression. follow sx - if continues to feel better/exertional sx improve/Hgb stays stable - then this would essentially confirm dx. sx don't improve then would need to entertain other ddx. -continue current care for now Subjective Patient is a 74-year-old female with past medical history of allergies, hypertension, hyperlipidemia, GERD, and osteoarthritis. She presented to the ED via EMS due to a near syncopal event, during which she reported dizziness, lightheadedness, and shortness of breath; she stated that these symptoms started about a week ago and have been worsening. She also reported nausea, dry heaving, and burning with urination. She endorses dark stools and is on chronic Motrin 400 Mg twice daily. In the ED, patient was found to have a hemoglobin drop from around 15 to 7.8 with Hemoccult positive stool. 1 unit PRBC was administered upon admission to the unit. She is currently NPO due to a pending EGD today (11/19) at 17:25. Patient was seen at bedside. She is feeling better than she did when she was admitted. On admission, she had feelings of hot flashes, shortness of breath, and dry heaving; at present, the hot flashes and dry heaving have resolved and the shortness of breath is only present on exertion. She is not having any chest pain or pressure. She had one bowel movement on the unit which was dark in color consistent with her iron supplementation; Hemoccult testing was not done. Review of Systems Review of Systems: per HPI Physical Exam Physical Exam: General: The patient is awake, alert and oriented, and in no acute distress. Non-toxic but pale appearing. Cardio: normal S1 and S2. Tachycardic. Pulm: clear bilaterally, no respiratory distress, no accessory muscle use. Abdomen: Soft, nontender, nondistended. Extremities: No extremity swelling. Derm: Collection of new ecchymoses along R forearm near IV site. Results & Data Results & Data Vital Signs (Past 12 Hours) Vital Signs Temp Pulse Pulse Resp BP BP Pulse Ox 11/19/24 07:06 36.9 C 92 H 20 144/85 H 97 11/19/24 02:39 36.5 C 100 H 18 140/92 93 11/19/24 01:39 36.6 C 109 H 18 135/84 96 11/19/24 01:31 96 H 11/19/24 01:28 36.5 C 101 H 18 144/75 H 96 11/19/24 01:25 36.5 C 128 H 18 144/75 H 95 11/19/24 01:09 36.9 C 97 H 16 122/89 96 11/19/24 01:06 11/19/24 00:54 36.8 C 105 H 20 131/89 94 11/19/24 00:36 36.9 C 110 H 154/98 H 96 11/19/24 00:33 92 H 13 97 11/19/24 00:30 154/98 H 11/19/24 00:06 103 H 16 96 11/19/24 00:00 111/77 11/19/24 00:00 96 H 17 111/77 93 11/18/24 23:51 101 H 20 93 11/18/24 23:42 108 H 20 98 11/18/24 23:33 105 H 23 95 11/18/24 23:21 88 18 99 11/18/24 23:18 91 H 17 97 11/18/24 23:18 88 11/18/24 23:03 150 H 24 11/18/24 22:21 103 H 23 94 11/18/24 22:03 98 H 13 97 11/18/24 21:45 97 H 18 98 11/18/24 21:45 97 11/18/24 21:41 169/106 H 11/18/24 21:37 126/97 11/18/24 21:35 96 H 11/18/24 21:30 36.8 C 84 21 182/95 H 97 O2 Del Method O2 Flow Rate 11/19/24 07:06 Room Air 11/19/24 02:39 11/19/24 01:39 11/19/24 01:31 11/19/24 01:28 0 11/19/24 01:25 Room Air 11/19/24 01:09 11/19/24 01:06 Room Air 11/19/24 00:54 11/19/24 00:36 11/19/24 00:33 11/19/24 00:30 11/19/24 00:06 11/19/24 00:00 11/19/24 00:00 Room Air 11/18/24 23:51 11/18/24 23:42 11/18/24 23:33 11/18/24 23:21 11/18/24 23:18 11/18/24 23:18 11/18/24 23:03 11/18/24 22:21 11/18/24 22:03 11/18/24 21:45 11/18/24 21:45 Room Air 11/18/24 21:41 11/18/24 21:37 11/18/24 21:35 11/18/24 21:30 Room Air CBC w Diff Results Results CBC w Diff Results: RBC 3.03 M/uL (4.20-5.40) L 11/19/24 WBC 8.55 K/ul (4.8-10.8) 11/19/24 Hgb 8.3 g/dl (12.0-16.0) L 11/19/24 Hct 25.4 % (37.0-47.0) L 11/19/24 MCV 81.2 fL (80.0-100.0) 11/19/24 MCH 26.1 pg (25.0-34.0) 11/19/24 MCHC 32.1 g/dL (32.0-36.0) 11/19/24 RDW Standard Deviation 50.3 fL (36.4-46.3) H 11/19/24 RDW Coefficient of Variation 17.2 % (11.5-14.5) H 11/19/24 Plt Count 260 K/uL (130-400) 11/19/24 MPV 9.8 fL (9.4-12.4) 11/19/24 Nucleated Red Blood Cells % (auto) 0.4 % 11/19 Nucleated RBC Absolute Count (auto) 0.03 K/uL (0.00-0.12) 0 11/19/24 Neutrophils (%) (Auto) 77.4 % 11/19/24 Lymphocytes (%) (Auto) 15.2 % 11/19/24 Monocytes # (Auto) 0.53 K/uL (0.11-0.59) 11/19/24 Eosinophils # (Auto) 0.00 K/uL (0.00-0.50) 11/19/24 Immature Granulocyte % (Auto) 0.6 % 11/19/24 Neutrophils # (Auto) 6.62 K/uL (1.40-6.50) H 11/19/24 Lymphocytes # (Auto) 1.30 K/uL (1.20-3.40) 11/19/24 Monocytes # (Auto) 0.53 K/uL (0.11-0.59) 11/19/24 Eosinophils # (Auto) 0.00 K/uL (0.00-0.50) 11/19/24 Basophils # (Auto) 0.05 K/uL (0.00-0.20) 11/19/24 Immature Granulocyte # (Auto) 0.05 K/uL (0.01-0.20) 5 Polychromasia 1+ 11/19/24 Ovalocytes 1+ 11/18/24 Resident Activity Tracking Resident Involvement: Resident Care Provided Care Provided: Adult [facility] Medicine
[2024-11-19] MEDS: PANTOprazole 40 MG/10 ML SYR IV SCH (08:22)
[2024-11-19 11:39] LABS: Hematocrit (blood only) 23.1 % (37.0-47.0); Hemoglobin 7.5 g/dl (12.0-16.0)
[2024-11-19] MEDS: SODIUM CHLORIDE 0.9% 500 ML IV SCH (11:43)
--- NOTE | 2024-11-19 11:51 | Gastrointestinal Consultation ---
Date of Consultation November 19, 2024 Assessment & Plan (1) Symptomatic anemia: Pleasant lady with anemia but no description of a GI bleed. She does take ibuprofen so she may well have silent ulcer bleeding. The difficult thing with gastric bypass patients is that they can bleed from the excluded part of the stomach. People with gastric bypasses also get iron deficient from the surgery. She had a colonoscopy within the last year so that does not need repeating. Plan EGD. Procedure and risks discussed. She agrees History of Present Illness Reason for Consultation: anemia Attending Physician: Kulwinder Coker DO History of Present Illness 74 year old female admitted with hemoglobin of 7.8 and weakness. She denies seeing blood in her stool. She has had "dark brown" stools but she has been taking iron for some time now. She denies melenic stools. She has had some dry heaves in the last couple of days but no vomiting. She denies abdominal pain at this time. Admittedly she takes 400 mg of ibuprofen twice daily and has done that for years but she "takes omeprazole and takes the ibuprofen with food". She had gastric bypass done in 2000. She had colonoscopy done in February of 2024. Allergies Allergy/AdvReac Type Severity Reaction Status Date / Time sunflower oil Allergy Severe Anaphylaxis Verified 11/19/24 11:32 /HIVES sunflower seed Allergy Severe Anaphylaxis Verified 11/19/24 11:32 /HIVES gluten Allergy Intermediate Gastrointestinal Verified 11/19/24 11:32 Upset Home Medications Medication Instructions Recorded Confirmed Type Collagen Tablets 1 dose PO DAILY 11/18/24 11/18/24 History atenolol 25 mg tablet 25 mg PO DAILY 11/18/24 11/18/24 History clonidine HCl 0.1 mg tablet 0.1 mg PO BID 11/18/24 11/18/24 History escitalopram oxalate 10 mg tablet 15 mg PO DAILY 11/18/24 11/18/24 History ferrous sulfate 325 mg (65 mg 325 mg PO DAILY 11/18/24 11/18/24 History iron) tablet (iron) ibuprofen 200 mg tablet 400 mg PO BID ARTHRITIS PAIN 11/18/24 11/18/24 History inulin 2 gram chewable tablet 2 g PO DAILY 11/18/24 11/18/24 History montelukast 10 mg tablet 10 mg PO DAILY 11/18/24 11/18/24 History omeprazole magnesium 20 mg 20 mg PO DAILY 11/18/24 11/18/24 History tablet,delayed release (Prilosec OTC) potassium chloride 10 mEq 10 meq PO DAILY 11/18/24 11/18/24 History tablet,extended release rosuvastatin 10 mg tablet 10 mg PO DAILY 11/18/24 11/18/24 History Patient History Surgical History History of breast reconstruction History of mastectomy History of gastric bypass History of colonoscopy Social History Smoking Status: Never smoker Hx Alcohol Use: No Hx Substance Use: No Preferred Language: Moldovan Communication Ability: Effective 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: No Beliefs That Will Affect Care: None Current Living Situation: Alone Feels Safe at Home: Yes Assistive Devices: Glasses Review of Systems Review of Systems: All systems reviewed & are unremarkable except as noted in HPI & below Physical Exam Constitutional: WD/WN, vitals as above + obese Neck: trachea midline, no thyromegaly Respiratory: normal respiratory effort, lungs clear to auscultation Cardiovascular: RRR, no murmur, no edema Gastrointestinal (Abdomen): normal bowel sounds, soft, nontender, no hepatosplenomegaly Results & Data Vital Signs (Past 12 Hours) Vital Signs Temp Pulse Pulse Resp BP BP Pulse Ox 11/19/24 11:39 11/19/24 07:06 36.9 C 92 H 20 144/85 H 97 11/19/24 05:47 86 11/19/24 02:39 36.5 C 100 H 18 140/92 93 11/19/24 01:39 36.6 C 109 H 18 135/84 96 11/19/24 01:31 96 H 11/19/24 01:28 36.5 C 101 H 18 144/75 H 96 11/19/24 01:25 36.5 C 128 H 18 144/75 H 95 11/19/24 01:09 36.9 C 97 H 16 122/89 96 11/19/24 01:06 11/19/24 00:54 36.8 C 105 H 20 131/89 94 11/19/24 00:36 36.9 C 110 H 154/98 H 96 11/19/24 00:33 92 H 13 97 11/19/24 00:30 154/98 H 11/19/24 00:06 103 H 16 96 11/19/24 00:00 111/77 11/19/24 00:00 96 H 17 111/77 93 11/18/24 23:51 101 H 20 93 O2 Del Method O2 Flow Rate 11/19/24 11:39 Room Air 11/19/24 07:06 Room Air 11/19/24 05:47 11/19/24 02:39 11/19/24 01:39 11/19/24 01:31 11/19/24 01:28 0 11/19/24 01:25 Room Air 11/19/24 01:09 11/19/24 01:06 Room Air 11/19/24 00:54 11/19/24 00:36 11/19/24 00:33 11/19/24 00:30 11/19/24 00:06 11/19/24 00:00 11/19/24 00:00 Room Air 11/18/24 23:51 Laboratory Results Chest X-Ray 11/18/24 21:45 Exam(s): XR CXR 1 VIEW EXAM: XR Chest, 1 View CLINICAL HISTORY: Reason for exam: near syncope, weakness. TECHNIQUE: Frontal view of the chest. COMPARISON: 03/24/2022. FINDINGS: Lungs: No consolidation. Pleural space: No pleural effusion is seen. No pneumothorax. Heart: The heart is top normal in size.. Mediastinum: There is mild uncoiling of thoracic aorta.. . Additional: Surgical clips are again noted IMPRESSION: No acute pulmonary disease. Findings appears similar to previous exam Electronically signed by: Solo Calvert MD 11/18/24 22:[address] 11/18/24 22:23 Exam(s): CT HEAD Without Contrast EXAM: CT Head Without Intravenous Contrast CLINICAL HISTORY: Reason for exam: weakness, hx breast CA, syncope. TECHNIQUE: Axial computed tomography images of the head/brain without intravenous contrast. CTDI is 38.64 mGy and DLP is 625.8 mGy-cm. Automated exposure control was utilized for the study. A dose lowering technique was utilized adhering to the principles of ALARA. COMPARISON: No relevant prior studies available. FINDINGS: Brain: No acute intracranial hemorrhage. There is decreased attenuation within the white matter. 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 Ventricles: There is prominence of ventricular system with deepening of the sulci consistent with cortical and central atrophy. Bones/joints: Unremarkable. No acute fracture. Soft tissues: Unremarkable. Sinuses: There is near complete opacification of the right maxillary sinus.. Mastoid air cells: Unremarkable as visualized. No mastoid effusion. IMPRESSION: Atrophy. Nonspecific white matter disease. 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 There is right maxillary sinus disease. If further evaluation is clinically necessary, consider correlation with MRI. Electronically signed by: Solo Calvert MD 11/18/24 23:07 PM Diagnostic Findings 11/19/24 11/19/24 11/19/24 Range/Units 11:20 05:34 05:34 WBC (4.8-10.8) K/ul RBC (4.20-5.40) M/uL Hgb 7.5 L 7.9 L (12.0-16.0) g/dl POC Hgb (12.0-16.0) g/dl Hct 23.1 L 24.6 L 24.3 L (37.0-47.0) % POC Hct (37-47) % MCV 81.2 (80.0-100.0) fL MCH 26.1 (25.0-34.0) pg MCHC 32.1 (32.0-36.0) g/dL RDW Std Deviation 50.3 H (36.4-46.3) fL RDW Coeff of Farooq 17.2 H (11.5-14.5) % Plt Count 260 (130-400) K/uL MPV 9.8 (9.4-12.4) fL Immature Gran % (Auto) 0.6 % Neut % (Auto) 77.4 % Lymph % (Auto) 15.2 % Turner % (Auto) 6.2 % Eos % (Auto) 0.0 % Baso % (Auto) 0.6 % Neut # (Auto) 6.62 H (1.40-6.50) K/uL Lymph # (Auto) 1.30 (1.20-3.40) K/uL Turner # (Auto) 0.53 (0.11-0.59) K/uL Eos # (Auto) 0.00 (0.00-0.50) K/uL Baso # (Auto) 0.05 (0.00-0.20) K/uL Immature Gran # (Auto) 0.05 (0.01-0.20) K/uL Absolute Nucleated RBC 0.03 (0.00-0.12) K/uL Nucleated RBC % (auto) 0.4 % Polychromasia 1+ Ovalocytes POC Sodium (135-144) mmol/L Sodium 137 (136-145) mmol/L POC Potassium (3.3-5.0) mmol/L Potassium 4.6 (3.5-5.1) mmol/L POC Chloride (101-112) mmol/L Chloride 108 H (98-107) mmol/L Carbon Dioxide 22 (21-32) mmol/L POC Total CO2 (24-31) mmol/L Anion Gap 7 (3-11) POC Anion Gap (16-25) mmol/L POC BUN (7-18) mg/dl BUN 40 H (6-23) mg/dl Creatinine 0.73 (0.6-1.2) mg/dl POC Creatinine (0.6-1.3) mg/dl Est Cr Clr Drug Dosing 80.5 ml/min eGFR 86.78 BUN/Creatinine Ratio 54.8 H (10-20) Glucose 140 H (70-99(Fasting)) mg/dl POC Glucose (other) (70-99) mg/dl Calcium 8.7 (8.6-10.3) mg/dl POC Ioniz Calcium Alicia (1.12-1.32) mmol/l Magnesium 1.7 (1.7-2.4) mg/dl Total Bilirubin (0.2-1.0) mg/dl AST (13-39) U/L ALT (7-52) U/L Alkaline Phosphatase (34-104) U/L Troponin I High Sens (0-14) pg/ml Total Protein (6.0-8.3) gm/dl Albumin (3.4-5.0) gm/dl Globulin (2.5-4.0) gm/dl Albumin/Globulin Ratio (0.9-2) TSH (0.300-4.500) uIu/ml Urine Color Urine Appearance (Clear) Urine pH (4.5-7.5) Ur Specific Hoffman (1.000-1.030) Urine Protein (Negative) Urine Glucose (UA) (Negative) Urine Ketones (Negative) Urine Blood (Negative) Urine Nitrite (Negative) Urine Bilirubin (Negative) Urine Urobilinogen (Negative) Ur Leukocyte Esterase (Negative) Urine WBC (Auto) (0-5) /hpf Urine RBC (Auto) (0-2) /hpf U Hyaline Cast (Auto) (0-2) /lpf U Epithel Cells (Auto) (0-2) /hpf Urine Bacteria (Auto) (None Seen) Adenovirus (PCR) (NotDetected) B. pertussis DNA (PCR) (NotDetected) B.parapertussis DNA PCR (NotDetected) C. pneumoniae DNA (PCR) (NotDetected) Coronavirus OC43 (PCR) (NotDetected) Coronavirus HKU1 (PCR) (NotDetected) Coronavirus 229E (PCR) (NotDetected) SARS-CoV-2 (PCR) (NotDetected) Coronavirus NL63 (PCR) (NotDetected) Human Metapneumovir PCR (NotDetected) Influenza Type A (PCR) (NotDetected) Influenza Type B (PCR) (NotDetected) M. pneumoniae (PCR) (NotDetected) Parainfluenza 1 (PCR) (NotDetected) Parainfluenza 2 (PCR) (NotDetected) Parainfluenza 3 (PCR) (NotDetected) Parainfluenza 4 (PCR) (NotDetected) RSV (PCR) (NotDetected) Entero/Rhino (PCR) (NotDetected) Blood Type Blood Type Recheck Antibody Screen Crossmatch 11/19/24 11/18/24 11/18/24 Range/Units 05:34 23:40 23:18 WBC 8.55 (4.8-10.8) K/ul RBC 3.03 L (4.20-5.40) M/uL Hgb 7.9 L (12.0-16.0) g/dl POC Hgb (12.0-16.0) g/dl Hct (37.0-47.0) % POC Hct (37-47) % MCV (80.0-100.0) fL MCH (25.0-34.0) pg MCHC (32.0-36.0) g/dL RDW Std Deviation (36.4-46.3) fL RDW Coeff of Farooq (11.5-14.5) % Plt Count (130-400) K/uL MPV (9.4-12.4) fL Immature Gran % (Auto) % Neut % (Auto) % Lymph % (Auto) % Turner % (Auto) % Eos % (Auto) % Baso % (Auto) % Neut # (Auto) (1.40-6.50) K/uL Lymph # (Auto) (1.20-3.40) K/uL Turner # (Auto) (0.11-0.59) K/uL Eos # (Auto) (0.00-0.50) K/uL Baso # (Auto) (0.00-0.20) K/uL Immature Gran # (Auto) (0.01-0.20) K/uL Absolute Nucleated RBC (0.00-0.12) K/uL Nucleated RBC % (auto) % Polychromasia Ovalocytes POC Sodium (135-144) mmol/L Sodium (136-145) mmol/L POC Potassium (3.3-5.0) mmol/L Potassium (3.5-5.1) mmol/L POC Chloride (101-112) mmol/L Chloride (98-107) mmol/L Carbon Dioxide (21-32) mmol/L POC Total CO2 (24-31) mmol/L Anion Gap (3-11) POC Anion Gap (16-25) mmol/L POC BUN (7-18) mg/dl BUN (6-23) mg/dl Creatinine (0.6-1.2) mg/dl POC Creatinine (0.6-1.3) mg/dl Est Cr Clr Drug Dosing ml/min eGFR BUN/Creatinine Ratio (10-20) Glucose (70-99(Fasting)) mg/dl POC Glucose (other) (70-99) mg/dl Calcium (8.6-10.3) mg/dl POC Ioniz Calcium Alicia (1.12-1.32) mmol/l Magnesium (1.7-2.4) mg/dl Total Bilirubin (0.2-1.0) mg/dl AST (13-39) U/L ALT (7-52) U/L Alkaline Phosphatase (34-104) U/L Troponin I High Sens (0-14) pg/ml Total Protein (6.0-8.3) gm/dl Albumin (3.4-5.0) gm/dl Globulin (2.5-4.0) gm/dl Albumin/Globulin Ratio (0.9-2) TSH (0.300-4.500) uIu/ml Urine Color Urine Appearance (Clear) Urine pH (4.5-7.5) Ur Specific Hoffman (1.000-1.030) Urine Protein (Negative) Urine Glucose (UA) (Negative) Urine Ketones (Negative) Urine Blood (Negative) Urine Nitrite (Negative) Urine Bilirubin (Negative) Urine Urobilinogen (Negative) Ur Leukocyte Esterase (Negative) Urine WBC (Auto) (0-5) /hpf Urine RBC (Auto) (0-2) /hpf U Hyaline Cast (Auto) (0-2) /lpf U Epithel Cells (Auto) (0-2) /hpf Urine Bacteria (Auto) (None Seen) Adenovirus (PCR) (NotDetected) B. pertussis DNA (PCR) (NotDetected) B.parapertussis DNA PCR (NotDetected) C. pneumoniae DNA (PCR) (NotDetected) Coronavirus OC43 (PCR) (NotDetected) Coronavirus HKU1 (PCR) (NotDetected) Coronavirus 229E (PCR) (NotDetected) SARS-CoV-2 (PCR) (NotDetected) Coronavirus NL63 (PCR) (NotDetected) Human Metapneumovir PCR (NotDetected) Influenza Type A (PCR) (NotDetected) Influenza Type B (PCR) (NotDetected) M. pneumoniae (PCR) (NotDetected) Parainfluenza 1 (PCR) (NotDetected) Parainfluenza 2 (PCR) (NotDetected) Parainfluenza 3 (PCR) (NotDetected) Parainfluenza 4 (PCR) (NotDetected) RSV (PCR) (NotDetected) Entero/Rhino (PCR) (NotDetected) Blood Type O Negative Blood Type Recheck O Negative Antibody Screen NEGATIVE Crossmatch See Detail 0311/18/24 11/18/24 Range/Units 23:03 22:36 22:31 WBC 10.61 (4.8-10.8) K/ul RBC 3.07 L (4.20-5.40) M/uL Hgb 7.8 L (12.0-16.0) g/dl POC Hgb 8.2 L (12.0-16.0) g/dl Hct 24.8 L (37.0-47.0) % POC Hct 24 L (37-47) % MCV 80.8 (80.0-100.0) fL MCH 25.4 (25.0-34.0) pg MCHC 31.5 L (32.0-36.0) g/dL RDW Std Deviation 51.0 H (36.4-46.3) fL RDW Coeff of Farooq 17.7 H (11.5-14.5) % Plt Count 305 (130-400) K/uL MPV 10.2 (9.4-12.4) fL Immature Gran % (Auto) 0.6 % Neut % (Auto) 73.9 % Lymph % (Auto) 17.0 % Turner % (Auto) 6.8 % Eos % (Auto) 1.1 % Baso % (Auto) 0.6 % Neut # (Auto) 7.85 H (1.40-6.50) K/uL Lymph # (Auto) 1.80 (1.20-3.40) K/uL Turner # (Auto) 0.72 H (0.11-0.59) K/uL Eos # (Auto) 0.12 (0.00-0.50) K/uL Baso # (Auto) 0.06 (0.00-0.20) K/uL Immature Gran # (Auto) 0.06 (0.01-0.20) K/uL Absolute Nucleated RBC (0.00-0.12) K/uL Nucleated RBC % (auto) % Polychromasia 1+ Ovalocytes 1+ POC Sodium 136 (135-144) mmol/L Sodium 135 L (136-145) mmol/L POC Potassium 4.5 (3.3-5.0) mmol/L Potassium 4.3 (3.5-5.1) mmol/L POC Chloride 105 (101-112) mmol/L Chloride 105 (98-107) mmol/L Carbon Dioxide 21 (21-32) mmol/L POC Total CO2 23 L (24-31) mmol/L Anion Gap 9 (3-11) POC Anion Gap 13.0 L (16-25) mmol/L POC BUN 39 H (7-18) mg/dl BUN 39 H (6-23) mg/dl Creatinine 0.78 (0.6-1.2) mg/dl POC Creatinine 0.9 (0.6-1.3) mg/dl Est Cr Clr Drug Dosing 74.3 ml/min eGFR 80.15 BUN/Creatinine Ratio 50.0 H (10-20) Glucose 163 H (70-99(Fasting)) mg/dl POC Glucose (other) 160 H (70-99) mg/dl Calcium 9.4 (8.6-10.3) mg/dl POC Ioniz Calcium Alicia 1.15 (1.12-1.32) mmol/l Magnesium 1.9 (1.7-2.4) mg/dl Total Bilirubin 0.3 (0.2-1.0) mg/dl AST 18 (13-39) U/L ALT 14 (7-52) U/L Alkaline Phosphatase 49 (34-104) U/L Troponin I High Sens < 2.3 (0-14) pg/ml Total Protein 6.4 (6.0-8.3) gm/dl Albumin 3.9 (3.4-5.0) gm/dl Globulin 2.5 (2.5-4.0) gm/dl Albumin/Globulin Ratio 1.6 (0.9-2) TSH 2.282 (0.300-4.500) uIu/ml Urine Color Yellow Urine Appearance Clear (Clear) Urine pH 5.5 (4.5-7.5) Ur Specific Hoffman 1.018 (1.000-1.030) Urine Protein Negative (Negative) Urine Glucose (UA) Negative (Negative) Urine Ketones Trace H (Negative) Urine Blood Negative (Negative) Urine Nitrite Positive A (Negative) Urine Bilirubin Negative (Negative) Urine Urobilinogen Negative (Negative) Ur Leukocyte Esterase 1+ H (Negative) Urine WBC (Auto) 6-10 H (0-5) /hpf Urine RBC (Auto) 0-2 (0-2) /hpf U Hyaline Cast (Auto) 0-2 (0-2) /lpf U Epithel Cells (Auto) 0-2 (0-2) /hpf Urine Bacteria (Auto) 4+ H (None Seen) Adenovirus (PCR) (NotDetected) B. pertussis DNA (PCR) (NotDetected) B.parapertussis DNA PCR (NotDetected) C. pneumoniae DNA (PCR) (NotDetected) Coronavirus OC43 (PCR) (NotDetected) Coronavirus HKU1 (PCR) (NotDetected) Coronavirus 229E (PCR) (NotDetected) SARS-CoV-2 (PCR) (NotDetected) Coronavirus NL63 (PCR) (NotDetected) Human Metapneumovir PCR (NotDetected) Influenza Type A (PCR) (NotDetected) Influenza Type B (PCR) (NotDetected) M. pneumoniae (PCR) (NotDetected) Parainfluenza 1 (PCR) (NotDetected) Parainfluenza 2 (PCR) (NotDetected) Parainfluenza 3 (PCR) (NotDetected) Parainfluenza 4 (PCR) (NotDetected) RSV (PCR) (NotDetected) Entero/Rhino (PCR) (NotDetected) Blood Type Blood Type Recheck Antibody Screen Crossmatch 11/18/24 Range/Units 21:57 WBC (4.8-10.8) K/ul RBC (4.20-5.40) M/uL Hgb (12.0-16.0) g/dl POC Hgb (12.0-16.0) g/dl Hct (37.0-47.0) % POC Hct (37-47) % MCV (80.0-100.0) fL MCH (25.0-34.0) pg MCHC (32.0-36.0) g/dL RDW Std Deviation (36.4-46.3) fL RDW Coeff of Farooq (11.5-14.5) % Plt Count (130-400) K/uL MPV (9.4-12.4) fL Immature Gran % (Auto) % Neut % (Auto) % Lymph % (Auto) % Turner % (Auto) % Eos % (Auto) % Baso % (Auto) % Neut # (Auto) (1.40-6.50) K/uL Lymph # (Auto) (1.20-3.40) K/uL Turner # (Auto) (0.11-0.59) K/uL Eos # (Auto) (0.00-0.50) K/uL Baso # (Auto) (0.00-0.20) K/uL Immature Gran # (Auto) (0.01-0.20) K/uL Absolute Nucleated RBC (0.00-0.12) K/uL Nucleated RBC % (auto) % Polychromasia Ovalocytes POC Sodium (135-144) mmol/L Sodium (136-145) mmol/L POC Potassium (3.3-5.0) mmol/L Potassium (3.5-5.1) mmol/L POC Chloride (101-112) mmol/L Chloride (98-107) mmol/L Carbon Dioxide (21-32) mmol/L POC Total CO2 (24-31) mmol/L Anion Gap (3-11) POC Anion Gap (16-25) mmol/L POC BUN (7-18) mg/dl BUN (6-23) mg/dl Creatinine (0.6-1.2) mg/dl POC Creatinine (0.6-1.3) mg/dl Est Cr Clr Drug Dosing ml/min eGFR BUN/Creatinine Ratio (10-20) Glucose (70-99(Fasting)) mg/dl POC Glucose (other) (70-99) mg/dl Calcium (8.6-10.3) mg/dl POC Ioniz Calcium Alicia (1.12-1.32) mmol/l Magnesium (1.7-2.4) mg/dl Total Bilirubin (0.2-1.0) mg/dl AST (13-39) U/L ALT (7-52) U/L Alkaline Phosphatase (34-104) U/L Troponin I High Sens (0-14) pg/ml Total Protein (6.0-8.3) gm/dl Albumin (3.4-5.0) gm/dl Globulin (2.5-4.0) gm/dl Albumin/Globulin Ratio (0.9-2) TSH (0.300-4.500) uIu/ml Urine Color Urine Appearance (Clear) Urine pH (4.5-7.5) Ur Specific Hoffman (1.000-1.030) Urine Protein (Negative) Urine Glucose (UA) (Negative) Urine Ketones (Negative) Urine Blood (Negative) Urine Nitrite (Negative) Urine Bilirubin (Negative) Urine Urobilinogen (Negative) Ur Leukocyte Esterase (Negative) Urine WBC (Auto) (0-5) /hpf Urine RBC (Auto) (0-2) /hpf U Hyaline Cast (Auto) (0-2) /lpf U Epithel Cells (Auto) (0-2) /hpf Urine Bacteria (Auto) (None Seen) Adenovirus (PCR) Not Detected (NotDetected) B. pertussis DNA (PCR) Not Detected (NotDetected) B.parapertussis DNA PCR Not Detected (NotDetected) C. pneumoniae DNA (PCR) Not Detected (NotDetected) Coronavirus OC43 (PCR) Not Detected (NotDetected) Coronavirus HKU1 (PCR) Not Detected (NotDetected) Coronavirus 229E (PCR) Not Detected (NotDetected) SARS-CoV-2 (PCR) Not Detected (NotDetected) Coronavirus NL63 (PCR) Not Detected (NotDetected) Human Metapneumovir PCR Not Detected (NotDetected) Influenza Type A (PCR) Not Detected (NotDetected) Influenza Type B (PCR) Not Detected (NotDetected) M. pneumoniae (PCR) Not Detected (NotDetected) Parainfluenza 1 (PCR) Not Detected (NotDetected) Parainfluenza 2 (PCR) Not Detected (NotDetected) Parainfluenza 3 (PCR) Not Detected (NotDetected) Parainfluenza 4 (PCR) Not Detected (NotDetected) RSV (PCR) Not Detected (NotDetected) Entero/Rhino (PCR) Not Detected (NotDetected) Blood Type Blood Type Recheck Antibody Screen Crossmatch
--- NOTE | 2024-11-19 11:53 | Anesthesiology Consultation ---
Date of Service November 19, 2024 Assessment & Plan Consults Requested medical & cardiac Pulmonary ASA ASA3 Proposed Anesthesia Anesthesia Type: MAC Risk / Benefits Reviewed With: PT / POA / Parent / Guardian, Accepts Plan and Informed Consent Obtained History Surgery Operation Date: 11/19/24 17:25 Proposed Procedures p Esophagogastroduodenoscopy Dr. Myers - Helen Myers Jr, MD Height/Weight Height: 5 ft 4 in Weight: 103.8 kg Allergies Allergy/AdvReac Type Severity Reaction Status Date / Time sunflower oil Allergy Severe Anaphylaxis Verified 11/19/24 11:32 /HIVES sunflower seed Allergy Severe Anaphylaxis Verified 11/19/24 11:32 /HIVES gluten Allergy Intermediate Gastrointestinal Verified 11/19/24 11:32 Upset Medications Home Medications Medication Instructions Recorded Confirmed Last Taken Collagen Tablets 1 dose PO DAILY 11/18/24 11/18/24 11/18/24 atenolol 25 mg tablet 25 mg PO DAILY 11/18/24 11/18/24 11/18/24 clonidine HCl 0.1 mg tablet 0.1 mg PO BID 11/18/24 11/18/24 11/18/24 08:00 escitalopram oxalate 10 mg tablet 15 mg PO DAILY 11/18/24 11/18/24 11/18/24 ferrous sulfate 325 mg (65 mg 325 mg PO DAILY 11/18/24 11/18/24 11/18/24 iron) tablet (iron) ibuprofen 200 mg tablet 400 mg PO BID ARTHRITIS PAIN 11/18/24 11/18/24 11/18/24 08:00 inulin 2 gram chewable tablet 2 g PO DAILY 11/18/24 11/18/24 11/18/24 montelukast 10 mg tablet 10 mg PO DAILY 11/18/24 11/18/24 11/18/24 omeprazole magnesium 20 mg 20 mg PO DAILY 11/18/24 11/18/24 11/18/24 tablet,delayed release (Prilosec OTC) potassium chloride 10 mEq 10 meq PO DAILY 11/18/24 11/18/24 11/18/24 tablet,extended release rosuvastatin 10 mg tablet 10 mg PO DAILY 11/18/24 11/18/24 11/18/24 Active Medications Generic Name Dose Route Start Last Admin Trade Name Freq PRN Reason Stop Dose Admin Pantoprazole Sodium 40 mg in 10 mls @ 5 mls/min 11/19/24 09:00 11/19/24 08:22 Protonix IV 12/19/24 08:59 5 mls/min BID JUANITA Administration Lactated Ringer's 1,000 mls @ 80 mls/hr 11/19/24 01:26 11/19/24 11:27 Lr IV 11/19/24 13:55 0 mls/hr .[id number] JUANITA Infusion Sodium Chloride 500 mls @ 15 mls/hr 11/19/24 07:30 11/19/24 11:43 Nss IV 11/20/24 07:29 15 mls/hr .Q24H JUANITA Administration Ondansetron HCl 4 mg 11/19/24 01:26 11/19/24 01:33 Ondansetron Inj 2 Mg/Ml 2 Ml Vial IV 12/19/24 01:25 4 mg Q6H PRN Administration Nausea And Vomiting NPO Date Last Intake of Fluids: 11/18/24 Time Last Intake of Fluids: 22:00 Date Last Intake of Solids: 11/18/24 Time Last Intake of Solids: 13:00 Exercise / Class Metabolic Activity II 4-5 Yardwork/Stairs/Walk up hill Past Surgical History Surgical History History of breast reconstruction History of mastectomy History of gastric bypass History of colonoscopy Past Anesthesia History No Hx of Anesthesia Complications and No Family Hx of Anesthesia Complications History of PONV No Hx of PONV and No Hx of Motion Sickness Social History Smoking Status: Never smoker Hx Alcohol Use: No Hx Substance Use: No Physical Exam Vital Signs Last Vital Signs Temp 36.7 C 11/19/24 11:45 Pulse 86 11/19/24 11:45 Resp 20 11/19/24 11:45 BP 139/88 11/19/24 11:49 Pulse Ox 97 11/19/24 11:45 O2 Del Method Room Air 11/19/24 11:45 O2 Flow Rate 0 11/19/24 01:28 Constitutional no acute distress ENMT Mouth: no dentition abnormality Thyromental Distance: > or= 3.5 Finger Breadths Mallampati Class: III Neck normal visual inspection Respiratory normal respiratory effort; no respiratory distress Auscultation: lungs clear to auscultation bilaterally Cardiovascular Rate/Rhythm: regular rate and regular rhythm Heart Sounds: no murmur Musculoskeletal Spine: normal cervical ROM Psychiatric Orientation: alert and oriented x 3 Testing Laboratory Results 11/19/24 11:20 11/19/24 05:34 Urine Color Yellow 11/18/24 23:03 Urine Appearance Clear (Clear) 11/18/24 23:03 Urine pH 5.5 (4.5-7.5) 11/18/24 23:03 Ur Specific [place] 1.018 (1.000-1.030) 11/18/24 23:03 Urine Protein Negative (Negative) 11/18/24 23:03 Urine Glucose (UA) Negative (Negative) 11/18/24 23:03 Urine Ketones Trace (Negative) H 11/18/24 23:03 Urine Nitrite Positive (Negative) A 11/18/24 23:03 Ur Leukocyte Esterase 1+ (Negative) H 11/18/24 23:03 Urine WBC (Auto) 6-10 /hpf (0-5) H 11/18/24 23:03 Urine RBC (Auto) 0-2 /hpf (0-2) 11/18/24 23:03 U Hyaline Cast (Auto) 0-2 /lpf (0-2) 11/18/24 23:03 U Epithel Cells (Auto) 0-2 /hpf (0-2) 11/18/24 23:03 Urine Bacteria (Auto) 4+ (None Seen) H 11/18/24 23:03 Blood Type O Negative 11/18/24 23:18 Antibody Screen NEGATIVE 11/18/24 23:18 Day of Procedure Evaluation. Date of Surgery November 19, 2024 Height/Weight Height: 5 ft 4 in Weight: 103.8 kg Vital Signs Last Vital Signs Temp 36.7 C 11/19/24 11:45 Pulse 86 11/19/24 11:45 Resp 20 11/19/24 11:45 BP 139/88 11/19/24 11:49 Pulse Ox 97 11/19/24 11:45 O2 Del Method Room Air 11/19/24 11:45 O2 Flow Rate 0 11/19/24 01:28 Allergies Allergy/AdvReac Type Severity Reaction Status Date / Time sunflower oil Allergy Severe Anaphylaxis Verified 11/19/24 11:32 /HIVES sunflower seed Allergy Severe Anaphylaxis Verified 11/19/24 11:32 /HIVES gluten Allergy Intermediate Gastrointestinal Verified 11/19/24 11:32 Upset Medications Home Medications Medication Instructions Recorded Confirmed Last Taken Collagen Tablets 1 dose PO DAILY 11/18/24 11/18/24 11/18/24 atenolol 25 mg tablet 25 mg PO DAILY 11/18/24 11/18/24 11/18/24 clonidine HCl 0.1 mg tablet 0.1 mg PO BID 11/18/24 11/18/24 11/18/24 08:00 escitalopram oxalate 10 mg tablet 15 mg PO DAILY 11/18/24 11/18/24 11/18/24 ferrous sulfate 325 mg (65 mg 325 mg PO DAILY 11/18/24 11/18/24 11/18/24 iron) tablet (iron) ibuprofen 200 mg tablet 400 mg PO BID ARTHRITIS PAIN 11/18/24 11/18/24 11/18/24 08:00 inulin 2 gram chewable tablet 2 g PO DAILY 11/18/24 11/18/24 11/18/24 montelukast 10 mg tablet 10 mg PO DAILY 11/18/24 11/18/24 11/18/24 omeprazole magnesium 20 mg 20 mg PO DAILY 11/18/24 11/18/24 11/18/24 tablet,delayed release (Prilosec OTC) potassium chloride 10 mEq 10 meq PO DAILY 11/18/24 11/18/24 11/18/24 tablet,extended release rosuvastatin 10 mg tablet 10 mg PO DAILY 11/18/24 11/18/24 11/18/24 Active Medications Generic Name Dose Route Start Last Admin Trade Name Bebe PRN Reason Stop Dose Admin Pantoprazole Sodium 40 mg in 10 mls @ 5 mls/min 11/19/24 09:00 11/19/24 08:22 Protonix IV 12/19/24 08:59 5 mls/min BID JUANITA Administration Lactated Ringer's 1,000 mls @ 80 mls/hr 11/19/24 01:26 11/19/24 11:27 Lr IV 11/19/24 13:55 0 mls/hr .[id number] JUANITA Infusion Sodium Chloride 500 mls @ 15 mls/hr 11/19/24 07:30 11/19/24 11:43 Nss IV 11/20/24 07:29 15 mls/hr .Q24H JUANITA Administration Ondansetron HCl 4 mg 11/19/24 01:26 11/19/24 01:33 Ondansetron Inj 2 Mg/Ml 2 Ml Vial IV 12/19/24 01:25 4 mg Q6H PRN Administration Nausea And Vomiting Past Anesthesia History No Hx of Anesthesia Complications and No Family Hx of Anesthesia Complications History of PONV No Hx of PONV and No Hx of Motion Sickness NPO Date Last Intake of Fluids: 11/18/24 Time Last Intake of Fluids: 22:00 Date Last Intake of Solids: 11/18/24 Time Last Intake of Solids: 13:00 Home Medications Home Medications Medication Instructions Recorded Confirmed Last Taken Collagen Tablets 1 dose PO DAILY 11/18/24 11/18/24 11/18/24 atenolol 25 mg tablet 25 mg PO DAILY 11/18/24 11/18/24 11/18/24 clonidine HCl 0.1 mg tablet 0.1 mg PO BID 11/18/24 11/18/24 11/18/24 08:00 escitalopram oxalate 10 mg tablet 15 mg PO DAILY 11/18/24 11/18/24 11/18/24 ferrous sulfate 325 mg (65 mg 325 mg PO DAILY 11/18/24 11/18/24 11/18/24 iron) tablet (iron) ibuprofen 200 mg tablet 400 mg PO BID ARTHRITIS PAIN 11/18/24 11/18/24 11/18/24 08:00 inulin 2 gram chewable tablet 2 g PO DAILY 11/18/24 11/18/24 11/18/24 montelukast 10 mg tablet 10 mg PO DAILY 11/18/24 11/18/24 11/18/24 omeprazole magnesium 20 mg 20 mg PO DAILY 11/18/24 11/18/24 11/18/24 tablet,delayed release (Prilosec OTC) potassium chloride 10 mEq 10 meq PO DAILY 11/18/24 11/18/24 11/18/24 tablet,extended release rosuvastatin 10 mg tablet 10 mg PO DAILY 11/18/24 11/18/24 11/18/24 Active Medications Generic Name Dose Route Start Last Admin Trade Name Freq PRN Reason Stop Dose Admin Pantoprazole Sodium 40 mg in 10 mls @ 5 mls/min 11/19/24 09:00 11/19/24 08:22 Protonix IV 12/19/24 08:59 5 mls/min BID JUANITA Administration Lactated Ringer's 1,000 mls @ 80 mls/hr 11/19/24 01:26 11/19/24 11:27 Lr IV 11/19/24 13:55 0 mls/hr .[id number] JUANITA Infusion Sodium Chloride 500 mls @ 15 mls/hr 11/19/24 07:30 11/19/24 11:43 Nss IV 11/20/24 07:29 15 mls/hr .Q24H JUANITA Administration Ondansetron HCl 4 mg 11/19/24 01:26 11/19/24 01:33 Ondansetron Inj 2 Mg/Ml 2 Ml Vial IV 12/19/24 01:25 4 mg Q6H PRN Administration Nausea And Vomiting Exercise / Class Metabolic Activity Metabolic Activity: II 4-5 Yardwork/Stairs/Walk up hill Physical Exam Constitutional: no acute distress Mouth: no dentition abnormality Thyromental Distance: > or= 3.5 Finger Breadths Mallampati Class: III Neck: + visual inspection normal Respiratory: + respiratory effort normal and + clear to auscultation bilaterally; no respiratory distress Cardiovascular: + regular rate and + regular rhythm; no murmur Musculoskeletal: no limited cervical ROM Psychiatric: + alert and + oriented x 3 ASA ASA3 Proposed Anesthesia Proposed Anesthesia: MAC Risk / Benefits Reviewed With: PT / POA / Parent / Guardian, Accepts Plan and Informed Consent Obtained
--- NOTE | 2024-11-19 12:17 | GI REPORT ---
[facility] [address] Patient: YONI GAN : 1950 Sex at : Female Age: 74 Years Procedure: Upper GI endoscopy Date: 11/19/2024 Attending Physician: Helen Myers MD Referring MD: Referred Self Indications: - Iron deficiency anemia due to suspected upper gastrointestinal bleeding Medications: - Monitored Anesthesia Care - Propofol per Anesthesia - See the Anesthesia note for documentation of the administered medications Complications: - No immediate complications. Estimated Blood Loss: - Estimated blood loss: None. Procedure: - ASA Grade Assessment: III - A patient with severe systemic disease. - The egd scope was introduced through the mouth and advanced to the jejunum. - The upper GI endoscopy was accomplished without difficulty. - The patient tolerated the procedure well. Findings: - The examined esophagus was normal. - Evidence of a gastric bypass was found. A gastric pouch with a normal size was found containing suture material. The staple line appeared intact. The gastrojejunal anastomosis was characterized by healthy appearing mucosa. This was traversed. The [id number] limb was characterized by healthy appearing mucosa. The jejunojejunal anastomosis was characterized by healthy appearing mucosa. The excluded stomach was not examined as it could not be reached. There was no blood present throughout the upper GI tract nor any potential bleeding sites - The examined jejunum was normal. Impression: - Normal esophagus. - Gastric bypass with a normal-sized pouch and intact staple line. Gastrojejunal anastomosis characterized by healthy appearing mucosa. - Normal examined jejunum. - No specimens collected. Recommendation: - Return patient to [facility] for ongoing care. Procedure Code(s): - 91029, Esophagogastroduodenoscopy, flexible, transoral; diagnostic, including collection of specimen(s) by brushing or washing, when performed (separate procedure) Diagnosis Code(s): - D50.9, Iron deficiency anemia, unspecified - Z98.84, Bariatric surgery status CPT(R) - 2023 copyright [employer]. All Rights Reserved. The CPT codes, CCI edits and ICD codes generated are intended as suggestions and were generated based on input data. These codes are preliminary and upon central office repairer review may be revised to meet current compliance and payer requirements. The provider is responsible for the final determination of appropriate codes, and modifiers. Dr. Helen Myers MD This document has been electronically signed. Note Initiated:11/19/2024 Note Completed:11/19/2024 12:15 PM [id number]
--- NOTE | 2024-11-19 12:19 | Electrocardiogram Report ---
Test Reason : Blood Pressure : */* mmHG Vent. Rate : 98 BPM Atrial Rate : 98 BPM P-R Int : 208 ms QRS Dur : 88 ms QT Int : 378 ms P-R-T Axes : 41 -15 12 degrees QTcB Int : 482 ms Poor data quality, interpretation may be adversely affected Sinus rhythm Nonspecific ST and T wave abnormality Abnormal ECG No previous ECGs available Confirmed by Kel Artis ([id number]) on 11/19/2024 12:19:51 PM Referred By: REFERRED SELF Confirmed By: Kel Artis
--- NOTE | 2024-11-19 12:21 | Communication Note ---
Date of Service: November 19, 2024 EGD shows no blood in the part of the UGI tract that I can examine. By history I am not convinced she is having an UGI bleed however I would treat her for ulcer disease in case she has damaged the excluded portion of the stomach. Would follow and consider capsule endoscopy if bleeding is evident. If she has an acute GI bleeding spell she will need to go somewhere for IR.
[2024-11-19] MEDS: FAMOTIDINE 20MG IV PUSH 20 MG/5 ML SYR IV SCH (12:58)
--- NOTE | 2024-11-19 14:36 | Anesthesiology Progress Note ---
Date of Service November 19, 2024 Anesthesia Post Procedure Vital Signs Vital Signs: Temp Pulse Pulse Resp BP BP BP 11/19/24 13:19 98 H 11/19/24 12:56 36.6 C 86 20 157/70 H 11/19/24 12:43 77 16 154/83 H 11/19/24 12:29 84 18 146/81 H 11/19/24 12:14 103 H 18 133/88 11/19/24 11:49 139/88 11/19/24 11:45 36.7 C 86 20 219/100 H 11/19/24 11:39 11/19/24 07:06 36.9 C 92 H 20 144/85 H 11/19/24 05:47 86 11/19/24 02:39 36.5 C 100 H 18 140/92 11/19/24 01:39 36.6 C 109 H 18 135/84 11/19/24 01:31 96 H 11/19/24 01:28 36.5 C 101 H 18 144/75 H 11/19/24 01:25 36.5 C 128 H 18 144/75 H 11/19/24 01:09 36.9 C 97 H 16 122/89 11/19/24 01:06 11/19/24 00:54 36.8 C 105 H 20 131/89 11/19/24 00:36 36.9 C 110 H 154/98 H 11/19/24 00:33 92 H 13 11/19/24 00:30 154/98 H 11/19/24 00:06 103 H 16 11/19/24 00:00 111/77 11/19/24 00:00 96 H 17 111/77 11/18/24 23:51 101 H 20 11/18/24 23:42 108 H 20 11/18/24 23:33 105 H 23 11/18/24 23:21 88 18 11/18/24 23:18 91 H 17 11/18/24 23:18 88 11/18/24 23:03 150 H 24 11/18/24 22:21 103 H 23 11/18/24 22:03 98 H 13 11/18/24 21:45 97 H 18 11/18/24 21:45 11/18/24 21:41 169/106 H 11/18/24 21:37 126/97 11/18/24 21:35 96 H 11/18/24 21:30 36.8 C 84 21 182/95 H Pulse Ox O2 Del Method O2 Flow Rate 11/19/24 13:19 11/19/24 12:56 99 Room Air 11/19/24 12:43 96 Room Air 11/19/24 12:29 95 Room Air 11/19/24 12:14 96 Room Air 11/19/24 11:49 11/19/24 11:45 97 Room Air 11/19/24 11:39 Room Air 11/19/24 07:06 97 Room Air 11/19/24 05:47 11/19/24 02:39 93 11/19/24 01:39 96 11/19/24 01:31 11/19/24 01:28 96 0 11/19/24 01:25 95 Room Air 11/19/24 01:09 96 11/19/24 01:06 Room Air 11/19/24 00:54 94 11/19/24 00:36 96 11/19/24 00:33 97 11/19/24 00:30 11/19/24 00:06 96 11/19/24 00:00 11/19/24 00:00 93 Room Air 11/18/24 23:51 93 11/18/24 23:42 98 11/18/24 23:33 95 11/18/24 23:21 99 11/18/24 23:18 97 11/18/24 23:18 11/18/24 23:03 11/18/24 22:21 94 11/18/24 22:03 97 11/18/24 21:45 98 11/18/24 21:45 97 Room Air 11/18/24 21:41 11/18/24 21:37 11/18/24 21:35 11/18/24 21:30 97 Room Air Transfer of Care Handoff Completed per policy Notes Mental Status: alert / awake / arousable and participated in evaluation Nausea / Vomiting: adequately controlled Pain: adequately controlled Airway Patency, RR, SpO2: stable & adequate BP & HR: stable & adequate Hydration State: stable & adequate Anesthetic Complications: no major complications apparent and Pt Satisfied with anesthetic care
[2024-11-19 14:48] LABS: Hematocrit (blood only) 25.4 % (37.0-47.0); Hemoglobin 8.3 g/dl (12.0-16.0)
--- NOTE | 2024-11-19 15:26 | Billing Data ---
Date of Service November 19, 2024 Coding Level of Care Code 22715 SUB INP/OBS CARE MIN
--- NOTE | 2024-11-19 15:26 | Billing Data ---
Date of Service November 19, 2024 Coding Level of Care Code 81229 SUB INP/OBS CARE MIN
[2024-11-19] MEDS: PROPOFOL IV EMULSION 10 MG/ML 20 ML VIAL IV ONE (18:44)
[2024-11-19] MEDS: LIDOCAINE 2% 2 ML VIAL/AMP(20MG/ML) INFIL ONE (18:44)
[2024-11-19] MEDS: cefTRIAXone SODIUM 2,000 MG/50 ML BAG IV SCH (23:29)
[2024-11-20] MEDS ORDERED: cefTRIAXone SODIUM 1,000 MG/50 ML BAG IV SCH
[2024-11-20 08:12] LABS: Basophils # (auto) 0.05 K/uL (0.00-0.20); Basophils % (auto) 0.7 %; Eosinophils # (auto) 0.37 K/uL (0.00-0.50); Eosinophils % (auto) 4.9 %; Hematocrit (blood only) 22.5 % (37.0-47.0); Immature Granulocytes # (auto) 0.05 K/uL (0.01-0.20); Immature Granulocytes % (auto) 0.7 %; Lymphocytes % (auto) 30.5 %; Mean Corpuscular Hemoglobin 26.2 pg (25.0-34.0); Mean Corpuscular Hgb Conc 31.1 g/dL (32.0-36.0); Mean Corpuscular Volume 84.3 fL (80.0-100.0); Monocytes # (auto) 0.79 K/uL (0.11-0.59); Monocytes % (auto) 10.5 %; Neutrophils # (auto) 3.98 K/uL (1.40-6.50); Neutrophils % (auto) 52.7 %; Nucleated RBC # (auto) 0.02 K/uL (0.00-0.12); Nucleated RBC % (auto) 0.3 %; Platelet Count 253 K/uL (130-400); RDW Coefficient of Variation 18.2 % (11.5-14.5); RDW Standard Deviation 53.5 fL (36.4-46.3); Red Blood Count 2.67 M/uL (4.20-5.40); White Blood Count 7.54 K/ul (4.8-10.8)
[2024-11-20 08:30] LABS: BUN Creatinine Ratio 20.8 (10-20); Calcium 9.2 mg/dl (8.6-10.3); Creatinine Clr Calc Pharmacy 76.9 ml/min; Potassium 3.8 mmol/L (3.5-5.1)
[2024-11-20 08:33] LABS: Polychromasia 1+; Prothrombin Time 10.5 Seconds (9.0-12.0)
--- NOTE | 2024-11-20 09:53 | Hospitalist Progress Note ---
Date of Service November 20, 2024 Assessment & Plan (1) GI bleed due to NSAIDs: (2) Pre-syncope: (3) UTI (urinary tract infection): (4) Obesity hypoventilation syndrome: (5) Hypertension: Plan #GI bleed - on chronic Motrin 400 Mg twice daily, history of CLAIRE on iron supplements since May - hx of gastric bypass 23 years ago - stool hemoccult positive in ED - hemoglobin 7.8 on admission - s/p 1 unit PRBC - EGD today: Normal gastric mucosa. No ulcer. 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 - Monitor on telemetry #UTI - Patient with dysuria - UA positive for nitrates, 1+ leukocyte esterase, 6-10 WBC, 4+ bacteria - Will cover with Rocephin 1G IV q24h - Follow urine cultures #Obesity hypoventilation syndrome - became hypoxic when she sat up in bed at 79% on room air, improved with deep breaths - CXR negative - oxygen as needed for O2 less than 94% - Incentive spirometry ordered #HTN - resumed atenolol and clonidine - Lopressor 5mg IV q6h prn for SBP >185 and DBP >95 Chronic stable diagnoses: Anxiety/depression escitalopram resumed HLD statin resumed VTE ppx: SCDs, defer chemical PPx with GI bleed above Diet: regular Dispo: PCU Admission and Anticipated Discharge Date Admission Date: November 18, 2024 Supervising Physician Co-Signing Physician Notes I personally examined the patient and verified all horn points of history and exam, discussed case, and agree with decision making with Dr Sorto and Chasidy Guevara MS4 feeling better - got up to the bathroom - more fatigued than she would normally be, but no racing heart no sob. stomach feels ok too. vitals noted nad heent nc at mmm breathing unlabored no accessory muscles good effort skin without rashes pallor or icterus labs noted near syncope/fatigue/ZAYAS -most likely ddx is acute/subacute blood loss anemia from GI bleed - feeling better corroborates this as the likely dx. Hgb down - but feeling better - could easily be positional variation/lab variation - but also since can't visualize bleeding -> follow clinically (will hold on afternoon Hgb check since she feels better and looks well -> would not want to cause anemia by excessive blood draws when there's not an acute clinical need for transfusion) and check again in AM. check NM bleeding scan. if Hgb stable/improved, and bleeding scan negative, and she continues to feel well - likely home ---> for presumed PUD - acid suppression/stop motrin --->for arthritis - topical diclofenac and consider APAP arthritis instead -continue current care for now ---> late addendum - NM bleed scan positive. revisited pt - feeling OK. discussed results and options - we both agree right now given that she looks/feels well and vitals stable - ongoing acid supression likely to be successful, just will require longer hospital stay and supportive care. given (+) NM scan this would corroborate that Hgb this AM was "real" 7.0 - and with ongoing bleeding additional transfusion likely warranted. backup would be IR or surgery if bleeding continues - both of which would likely require transfer (she's aware). GI aware of results as well. Subjective Patient was seen at bedside. She reports feeling better, with a decrease in her exertional shortness of breath and tachycardia. She does not have any abdominal discomfort. She did have a bowel movement last night, which did not have any visible blood. She was concerned about not having her 15mg escitalopram in the hospital. Review of Systems Review of Systems: Cardio: no chest pain or pressure at rest; tachycardia on exertion Resp: no shortness of breath at rest; exertional dyspnea GI: no nausea, vomiting, or diarrhea Psych: slightly anxious Neuro: no headaches or weakness Physical Exam Physical Exam: General: The patient is awake, alert and oriented, and in no acute distress. Non-toxic but pale appearing. Cardio: normal S1 and S2. Tachycardic. Pulm: clear bilaterally, no respiratory distress, no accessory muscle use. Abdomen: Soft, nontender, nondistended. Extremities: No extremity swelling. Derm: Ecchymoses along R forearm near IV site unchanged from yesterday. Results & Data Results & Data Vital Signs (Past 12 Hours) Vital Signs Temp Pulse Pulse Resp BP Pulse Ox O2 Del Method 11/20/24 07:54 80 11/20/24 07:54 Room Air 11/20/24 07:50 36.5 C 100 H 19 139/72 94 Room Air 11/20/24 04:12 36.5 C 95 H 16 144/78 H 96 Room Air 11/20/24 00:23 100 H 11/19/24 22:50 36.7 C 91 H 20 154/84 H 94 Room Air CBC w Diff Results Results CBC w Diff Results: RBC 2.49 M/uL (4.20-5.40) L 11/20/24 WBC 6.61 K/ul (4.8-10.8) 11/20/24 Hgb 6.6 g/dl (12.0-16.0) L* 11/20/24 Hct 20.8 % (37.0-47.0) L* 11/20/24 MCV 83.5 fL (80.0-100.0) 11/20/24 MCH 26.5 pg (25.0-34.0) 11/20/24 MCHC 31.7 g/dL (32.0-36.0) L 11/20/24 RDW Standard Deviation 52.4 fL (36.4-46.3) H 11/20/24 RDW Coefficient of Variation 18.0 % (11.5-14.5) H 11/20/24 Plt Count 233 K/uL (130-400) 11/20/24 MPV 10.1 fL (9.4-12.4) 11/20/24 Nucleated Red Blood Cells % (auto) 0.3 % 11/20 Nucleated RBC Absolute Count (auto) 0.02 K/uL (0.00-0.12) 0 11/20/24 Neutrophils (%) (Auto) 52.7 % 11/20/24 Lymphocytes (%) (Auto) 30.5 % 11/20/24 Monocytes # (Auto) 0.79 K/uL (0.11-0.59) H 11/20/24 Eosinophils # (Auto) 0.37 K/uL (0.00-0.50) 11/20/24 Immature Granulocyte % (Auto) 0.7 % 11/20/24 Neutrophils # (Auto) 3.98 K/uL (1.40-6.50) 11/20/24 Lymphocytes # (Auto) 2.30 K/uL (1.20-3.40) 11/20/24 Monocytes # (Auto) 0.79 K/uL (0.11-0.59) H 11/20/24 Eosinophils # (Auto) 0.37 K/uL (0.00-0.50) 11/20/24 Basophils # (Auto) 0.05 K/uL (0.00-0.20) 11/20/24 Immature Granulocyte # (Auto) 0.05 K/uL (0.01-0.20) 5 Polychromasia 1+ 11/20/24 Ovalocytes 1+ 11/18/24 Resident Activity Tracking Resident Involvement: Resident Care Provided Care Provided: Adult Hospital Medicine
[2024-11-20] MEDS: cloNIDine HCL 0.1 MG TAB PO SCH (10:51)
[2024-11-20] MEDS: ATENOLOL 25 MG TABLET PO SCH (10:52)
[2024-11-20] MEDS: ROSUVASTATIN CALCIUM 10 MG TAB PO SCH (10:52)
[2024-11-20] MEDS: ESCITALOPRAM OXALATE 10 MG TAB PO SCH (10:52)
[2024-11-20] MEDS: MONTELUKAST SODIUM 10 MG TABLET PO SCH (10:52)
[2024-11-20] MEDS ORDERED: ACETAMINOPHEN 325 MG TAB PO PRN (11:47)
--- NOTE | 2024-11-20 12:48 | Billing Data ---
Date of Service November 20, 2024 Coding Level of Care Code 23805 SUB INP/OBS CARE MIN
--- NOTE | 2024-11-20 12:49 | Billing Data ---
Date of Service November 20, 2024 Coding Level of Care Code 24296 SUB INP/OBS CARE MIN
--- NOTE | 2024-11-20 15:21 | Communication Note ---
Date of Service: November 20, 2024 Went by to see patient, not in room. H/H jumping around a bit. NM bleeding scan is worth a shot but not sure if it will show anything. Will continue to follow. See tomorrow
[2024-11-20] MEDS: DICLOFENAC SOD 1% GEL 100 GM TUBE EXT SCH (15:26)
--- NOTE | 2024-11-20 15:35 | Nuclear Medicine Report ---
NM GI bleeding CLINICAL HISTORY: 74 years-old Female with eval GIB. Acute GI bleed, suspicious to be within the sto mach. TECHNIQUE: Following the intravenous administration of red cells labeled with 24.8 mCi of technetium -99m Ultratag, sequential abdominal images were obtained. COMPARISON: CT abdomen and pelvis 03/24/2022 FINDINGS: There is no abnormal focus of labeled red cell accumulation or extravasation within the small or larg e bowel. There is however progressive accumulation of tracer activity within the proximal lesser curv ature which then accumulates within the dependent mid greater curvature of the stomach. There is expe cted activity in the blood pool. IMPRESSION: Progressive accumulation of tracer within the stomach suggestive of a small GI bleed. ACT 112: Negative or not required by law. The above report was generated using voice recognition software. It may contain grammatical, syntax o r spelling errors. Electronically signed by: Lonnie Pennington M.D. 11/20/2024 3:34 PM
[2024-11-20] MEDS ORDERED: SODIUM CHLORIDE 0.9% 100 ML IV PRN ×2 (16:17→20:53)
[2024-11-20 17:12] LABS: Hematocrit (blood only) 20.8 % (37.0-47.0); Hemoglobin 6.6 g/dl (12.0-16.0); Mean Corpuscular Hemoglobin 26.5 pg (25.0-34.0); Mean Corpuscular Hgb Conc 31.7 g/dL (32.0-36.0); Mean Corpuscular Volume 83.5 fL (80.0-100.0); Mean Platelet Volume 10.1 fL (9.4-12.4); Platelet Count 233 K/uL (130-400); RDW Standard Deviation 52.4 fL (36.4-46.3); Red Blood Count 2.49 M/uL (4.20-5.40); White Blood Count 6.61 K/ul (4.8-10.8)
[2024-11-20 20:48] LABS: Hematocrit (blood only) 22.7 % (37.0-47.0); Hemoglobin 7.4 g/dl (12.0-16.0)
[2024-11-21 03:29] LABS: BUN Creatinine Ratio 17.7 (10-20); Calcium 8.8 mg/dl (8.6-10.3); Potassium 3.8 mmol/L (3.5-5.1)
[2024-11-21 03:48] LABS: Basophils # (auto) 0.04 K/uL (0.00-0.20); Basophils % (auto) 0.8 %; Eosinophils # (auto) 0.35 K/uL (0.00-0.50); Eosinophils % (auto) 6.7 %; Hematocrit (blood only) 24.7 % (37.0-47.0); Hemoglobin 8.2 g/dl (12.0-16.0); Immature Granulocytes # (auto) 0.02 K/uL (0.01-0.20); Immature Granulocytes % (auto) 0.4 %; Lymphocytes # (auto) 1.37 K/uL (1.20-3.40); Lymphocytes % (auto) 26.2 %; Mean Corpuscular Hemoglobin 27.8 pg (25.0-34.0); Mean Corpuscular Hgb Conc 33.2 g/dL (32.0-36.0); Mean Corpuscular Volume 83.7 fL (80.0-100.0); Mean Platelet Volume 10.4 fL (9.4-12.4); Monocytes # (auto) 0.46 K/uL (0.11-0.59); Monocytes % (auto) 8.8 %; Neutrophils # (auto) 2.99 K/uL (1.40-6.50); Neutrophils % (auto) 57.1 %; Platelet Count 166 K/uL (130-400); Platelet Estimate Normal (Normal); Polychromasia 1+; RDW Coefficient of Variation 16.8 % (11.5-14.5); RDW Standard Deviation 50.4 fL (36.4-46.3); Red Blood Count 2.95 M/uL (4.20-5.40); White Blood Count 5.23 K/ul (4.8-10.8)
--- NOTE | 2024-11-21 06:58 | Hospitalist Progress Note ---
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 No ulcer. - GI consulted aprec recommendations - Protonix 40 mg IV twice daily and Pepcid 20 mg IV BID - per radiology, a nuc med scan might be useful to identify source of bleeding - nuc med scan displayed sites of active bleeding around stomach area - continue conservative management: Protonix 40 mg IV twice daily and Pepcid 20 mg IV BID - s/p 3 units of PRBCs since admission. Continue to monitor Q6H. 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, right maxillary sinus disease consider correlation with MRI if clinically indicated - Troponin < 2.3 - Bedrest and fall precautions - PT/ OT - Resolved with improvement in hemoglobin - Monitor on telemetry #UTI - Patient with dysuria - UA positive for nitrates, 1+ leukocyte esterase, 6-10 WBC, 4+ bacteria - Will cover with Rocephin 1G IV q24h -Urine cultures growing pansensitive Klebsiella #Obesity hypoventilation syndrome - became hypoxic when she sat up in bed at 79% on room air, improved with deep breaths - CXR negative - oxygen as needed for O2 less than 94% - Incentive spirometry ordered #HTN - resumed atenolol and clonidine - Lopressor 5mg IV q6h prn for SBP >185 and DBP >95 Chronic stable diagnoses: Anxiety/depression escitalopram resumed HLD statin resumed VTE ppx: SCDs, defer chemical PPx with GI bleed above Diet: regular Dispo: PCU Admission and Anticipated Discharge Date Admission Date: November 18, 2024 Supervising Physician Co-Signing Physician Notes I personally examined the patient and verified all horn points of history and exam, discussed case, and agree with decision making with Dr Barnes feeling better - no palpitations no sob. no change in stools - 1x melena yesterday vitals noted nad heent nc at mmm breathing unlabored no accessory muscles good effort skin without rashes pallor or icterus labs noted near syncope/fatigue/ZAYAS -fitting overall with acute/subacute blood loss anemia from GI bleed - bleed scan positive and did require another 2 units prbcs for acute blood loss anemia - but hemodynamically stable -clinically bleeding seems to be slowing with acid suppression; if worsens or doesn't stop would need to consider IR > surgery - neither of which would likely be able to be done here (she's aware) ---> for presumed PUD - acid suppression/stop motrin --->for arthritis - topical diclofenac and consider APAP arthritis instead -continue current care for now otherwise as above Subjective Patient was seen at bedside. Patient reports dark stools overnight. This has been unchanged since admission to the hospital. Denies any shortness of breath or dizziness. States that majority of symptoms have resolved at this time. Patient denies any abdominal pain. Patient denies any issues or concerns at this time. Review of Systems Review of Systems: All systems reviewed & are unremarkable except as noted in Subjective Physical Exam Physical Exam: Constitutional: well-appearing, no acute distress HEENT: NCAT, no conjunctival injection CV: regular rhythm, no murmur appreciated, extremities well-perfused, no LE edema Resp: CTABL, no wheezes/rales/rhonchi appreciated, no increased work of breathing GI: soft, nondistended, nontender, BS normoactive MSK: no gross deformities appreciated Skin: warm, dry, no rash appreciated Neuro: alert, oriented, no focal neurologic deficit appreciated Results & Data Results & Data Vital Signs (Past 12 Hours) Vital Signs Temp Pulse Pulse Pulse Resp BP BP 11/21/24 03:14 36.8 C 78 16 110/71 11/21/24 01:00 11/21/24 00:55 36.8 C 55 L 18 105/61 11/20/24 23:55 36.7 C 60 18 113/59 L 11/20/24 23:47 67 11/20/24 22:55 36.7 C 62 111/68 11/20/24 22:54 36.7 C 64 18 111/68 11/20/24 22:25 36.8 C 57 L 18 118/60 11/20/24 22:10 36.5 C 57 L 18 119/64 11/20/24 21:53 36.6 C 62 18 115/68 11/20/24 20:08 36.8 C 62 18 138/75 11/20/24 20:07 36.8 C 62 18 138/75 11/20/24 19:37 36.8 C 62 18 138/75 11/20/24 19:28 36.6 C 59 L 18 127/75 11/20/24 19:15 36.6 C 60 18 127/75 Pulse Ox Pulse Ox O2 Del Method O2 Del Method 11/21/24 03:14 93 Room Air 11/21/24 01:00 98 Room Air 11/21/24 00:55 96 11/20/24 23:55 95 11/20/24 23:47 11/20/24 22:55 11/20/24 22:54 96 11/20/24 22:25 98 11/20/24 22:10 95 11/20/24 21:53 94 11/20/24 20:08 100 11/20/24 20:07 100 Room Air 11/20/24 19:37 100 11/20/24 19:28 98 11/20/24 19:15 98 Room Air Resident Activity Tracking Resident Involvement: Resident Care Provided Care Provided: Adult Hospital Medicine
--- NOTE | 2024-11-21 09:32 | Gastroenterology Progress Note ---
Date of Service November 21, 2024 Assessment & Plan (1) Symptomatic anemia: Plan: As I discussed with primary team with bleeding from the excluded part of stomach we can only treat with PPI and hope things stop. If she were to start bleeding significantly again she would need IR with embolization. I have asked her to stop NSAIDs and she agrees. Topical voltaren still has some absorption, albeit small, so there will be a slight risk for bleeding with that. Admission and Anticipated Discharge Date Admission Date: November 18, 2024 Subjective Feeling better. Seems to have settled down. H/H are stable. NM bleeding scan showed bleeding from excluded portion of stomach Physical Exam Physical Exam: She looks well Constitutional: WD/WN, vitals as above Results & Data Vital Signs (Past 12 Hours) Vital Signs Temp Pulse Pulse Resp BP BP Pulse Ox 11/21/24 07:42 36.7 C 71 18 131/83 95 11/21/24 03:14 36.8 C 78 16 110/71 93 11/21/24 01:00 11/21/24 00:55 36.8 C 55 L 18 105/61 96 11/20/24 23:55 36.7 C 60 18 113/59 L 95 11/20/24 23:47 67 11/20/24 22:55 36.7 C 62 111/68 11/20/24 22:54 36.7 C 64 18 111/68 96 11/20/24 22:25 36.8 C 57 L 18 118/60 98 11/20/24 22:10 36.5 C 57 L 18 119/64 95 11/20/24 21:53 36.6 C 62 18 115/68 94 Pulse Ox O2 Del Method O2 Del Method 11/21/24 07:42 Room Air 11/21/24 03:14 Room Air 11/21/24 01:00 98 Room Air 11/21/24 00:55 11/20/24 23:55 11/20/24 23:47 11/20/24 22:55 11/20/24 22:54 11/20/24 22:25 11/20/24 22:10 11/20/24 21:53
[2024-11-21 09:45] LABS: Hematocrit (blood only) 26.2 % (37.0-47.0); Hemoglobin 8.6 g/dl (12.0-16.0)
--- NOTE | 2024-11-21 14:44 | Billing Data ---
Date of Service November 21, 2024 Coding Level of Care Code 43944 SUB INP/OBS CARE MIN
[2024-11-21 17:15] LABS: Hematocrit (blood only) 26.8 % (37.0-47.0); Hemoglobin 8.8 g/dl (12.0-16.0)
[2024-11-22 06:42] LABS: Basophils # (auto) 0.02 K/uL (0.00-0.20); Basophils % (auto) 0.4 %; Eosinophils # (auto) 0.29 K/uL (0.00-0.50); Eosinophils % (auto) 5.9 %; Hematocrit (blood only) 25.3 % (37.0-47.0); Hemoglobin 8.3 g/dl (12.0-16.0); Immature Granulocytes # (auto) 0.02 K/uL (0.01-0.20); Immature Granulocytes % (auto) 0.4 %; Lymphocytes # (auto) 1.08 K/uL (1.20-3.40); Lymphocytes % (auto) 21.8 %; Mean Corpuscular Hemoglobin 27.7 pg (25.0-34.0); Mean Corpuscular Hgb Conc 32.8 g/dL (32.0-36.0); Mean Corpuscular Volume 84.3 fL (80.0-100.0); Mean Platelet Volume 10.7 fL (9.4-12.4); Monocytes # (auto) 0.51 K/uL (0.11-0.59); Monocytes % (auto) 10.3 %; Neutrophils # (auto) 3.03 K/uL (1.40-6.50); Neutrophils % (auto) 61.2 %; Platelet Count 188 K/uL (130-400); RDW Coefficient of Variation 17.2 % (11.5-14.5); RDW Standard Deviation 51.8 fL (36.4-46.3); White Blood Count 4.95 K/ul (4.8-10.8)
[2024-11-22 07:08] LABS: Albumin Globulin Ratio 1.6 (0.9-2); Albumin Level 3.4 gm/dl (3.4-5.0); BUN Creatinine Ratio 18.1 (10-20); Bilirubin,Total 0.6 mg/dl (0.2-1.0); Calcium 8.9 mg/dl (8.6-10.3); Globulin 2.1 gm/dl (2.5-4.0); Potassium 3.7 mmol/L (3.5-5.1); Total Protein 5.5 gm/dl (6.0-8.3)
--- NOTE | 2024-11-22 09:42 | Gastroenterology Progress Note ---
Date of Service November 22, 2024 Assessment & Plan (1) Symptomatic anemia: Plan: She seems to be doing well. Okay from my standpoint to discharge when you are ready. Admission and Anticipated Discharge Date Admission Date: November 18, 2024 Subjective Feels great. No BM since yesterday. H/H are stable. She is tolerating regular diet. Physical Exam Physical Exam: She looks well Constitutional: WD/WN, vitals as above Results & Data Vital Signs (Past 12 Hours) Vital Signs Temp Pulse Pulse Resp BP Pulse Ox Pulse Ox 11/22/24 09:33 55 L 11/22/24 07:47 36.5 C 70 22 115/71 99 11/22/24 03:32 36.6 C 72 16 102/68 93 11/22/24 01:00 93 11/21/24 23:23 36.6 C 72 18 116/67 94 11/21/24 23:06 60 O2 Del Method O2 Del Method 11/22/24 09:33 11/22/24 07:47 Room Air 11/22/24 03:32 Room Air 11/22/24 01:00 Room Air 11/21/24 23:23 Room Air 11/21/24 23:06
--- NOTE | 2024-11-22 14:36 | Hospitalist Progress Note ---
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 No ulcer. - GI consulted aprec recommendations - Protonix 40 mg IV twice daily and Pepcid 20 mg IV BID - per radiology, a nuc med scan might be useful to identify source of bleeding - nuc med scan displayed sites of active bleeding around stomach area - continue conservative management: Protonix 40 mg IV twice daily and Pepcid 20 mg IV BID - s/p 3 units of PRBCs since admission. Continue to monitor Q6H. 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, right maxillary sinus disease consider correlation with MRI if clinically indicated - Troponin < 2.3 - Bedrest and fall precautions - PT/ OT - Resolved with improvement in hemoglobin - Monitor on telemetry #UTI - Patient with dysuria - UA positive for nitrates, 1+ leukocyte esterase, 6-10 WBC, 4+ bacteria - Will cover with Rocephin 1G IV q24h -Urine cultures growing pansensitive Klebsiella #Obesity hypoventilation syndrome - became hypoxic when she sat up in bed at 79% on room air, improved with deep breaths - CXR negative - oxygen as needed for O2 less than 94% - Incentive spirometry ordered #HTN - resumed atenolol and clonidine - Lopressor 5mg IV q6h prn for SBP >185 and DBP >95 Chronic stable diagnoses: Anxiety/depression escitalopram resumed HLD statin resumed VTE ppx: SCDs, defer chemical PPx with GI bleed above Diet: regular Dispo: PCU Admission and Anticipated Discharge Date Admission Date: November 18, 2024 Results & Data Results & Data Vital Signs (Past 12 Hours) Vital Signs Temp Pulse Pulse Resp BP Pulse Ox O2 Del Method 11/22/24 11:12 36.5 C 59 L 20 99/65 L 95 Room Air 11/22/24 09:33 55 L 11/22/24 07:47 36.5 C 70 22 115/71 99 Room Air 11/22/24 03:32 36.6 C 72 16 102/68 93 Room Air PG Care Time/CCT Total # of Minutes Spent Total Time Spent with Patient: Total time spent is greater than 50% in coordination of care (as documented) at patient's floor/unit and/or counseling patient: Coding Diagnoses GI bleed due to NSAIDs K92.2; T39.395A Pre-syncope R55 UTI (urinary tract infection) N39.0 Obesity hypoventilation syndrome E66.2 Hypertension I10
--- NOTE | 2024-11-22 14:55 | Hospitalist Progress Note ---
Date of Service November 22, 2024 Assessment & Plan (1) GI bleed due to NSAIDs: (2) Pre-syncope: (3) UTI (urinary tract infection): (4) Obesity hypoventilation syndrome: (5) Hypertension: Plan #GI bleed History of gastric bypass 23 years ago, additionally with NSAID use twice daily Nuc med study shows active bleeding in excluded stomach. Patient was treated with PPI therapy, clinically progressed well No BM today, slightly downtrending/equivocal hemoglobin Clinically improving. Okay for discharge from a GI standpoint. Did discuss with the patient however she did have an episode of hypotension around midday. Given slight downtrending hemoglobin and hypotension we will watch overnight and trend hemoglobin in the morning. She has not had any further bowel movements. MiraLAX x 1 given, hydration encouraged. 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 SpO2 PRN/ Weaned to room air. VTE ppx: SCDs, defer chemical PPx 2/2 GIB Diet: regular Dispo: PCU Admission and Anticipated Discharge Date Admission Date: November 18, 2024 Subjective Seen at bedside. She reports she feels much better. Lightheadedness, dizziness, chest pain and palpitations have all resolved. Hemoglobin is slightly downtrending but near equivocal today. She reports she has not had a bowel movement in 2 days but that is not unusual for her when she is not eating. No abdominal pain. No chest pain or chest pressure. Did discuss possibility of discharge home given episode of mild hypotension and downtrending hemoglobin we will watch overnight and anticipate for hopeful discharge tomorrow morning Physical Exam Physical Exam: General: A&Ox3. NAD. Cooperative. HEENT: Atraumatic, normocephalic. Vision and hearing grossly intact Pulm: Symmetrical chest rise. No increased work of breathing. No respiratory distress. Abdominal: Nontender, nondistended, soft. BS present. Results & Data Results & Data Vital Signs (Past 12 Hours) Vital Signs Temp Pulse Pulse Resp BP Pulse Ox O2 Del Method 11/22/24 11:12 36.5 C 59 L 20 99/65 L 95 Room Air 11/22/24 09:33 55 L 11/22/24 07:47 36.5 C 70 22 115/71 99 Room Air 11/22/24 03:32 36.6 C 72 16 102/68 93 Room Air PG Care Time/CCT Total # of Minutes Spent Total Time Spent with Patient: Total time spent is greater than 50% in coordination of care (as documented) at patient's floor/unit and/or counseling patient: Coding Level of Care Code 14900 SUB INP/OBS CARE 2/35MIN Diagnoses GI bleed due to NSAIDs K92.2; T39.395A Pre-syncope R55 UTI (urinary tract infection) N39.0 Obesity hypoventilation syndrome E66.2 Hypertension I10
[2024-11-23 03:19] VITALS: RESP 18
[2024-11-23 06:56] LABS: Basophils # (auto) 0.03 K/uL (0.00-0.20); Basophils % (auto) 0.6 %; Eosinophils # (auto) 0.25 K/uL (0.00-0.50); Eosinophils % (auto) 5.2 %; Hematocrit (blood only) 27.4 % (37.0-47.0); Immature Granulocytes # (auto) 0.01 K/uL (0.01-0.20); Immature Granulocytes % (auto) 0.2 %; Lymphocytes # (auto) 1.04 K/uL (1.20-3.40); Lymphocytes % (auto) 21.7 %; Mean Corpuscular Hgb Conc 32.8 g/dL (32.0-36.0); Mean Corpuscular Volume 85.1 fL (80.0-100.0); Mean Platelet Volume 10.5 fL (9.4-12.4); Monocytes # (auto) 0.62 K/uL (0.11-0.59); Monocytes % (auto) 12.9 %; Neutrophils # (auto) 2.84 K/uL (1.40-6.50); Neutrophils % (auto) 59.4 %; Platelet Count 190 K/uL (130-400); RDW Coefficient of Variation 16.9 % (11.5-14.5); RDW Standard Deviation 52.5 fL (36.4-46.3); Red Blood Count 3.22 M/uL (4.20-5.40); White Blood Count 4.79 K/ul (4.8-10.8)
[2024-11-23 07:19] LABS: BUN Creatinine Ratio 15.7 (10-20); Creatinine Clr Calc Pharmacy 70.5 ml/min; Potassium 3.8 mmol/L (3.5-5.1)
[2024-11-23 07:43] VITALS: BP 125/75; TEMP 98.1; O2SAT 97
--- NOTE | 2024-11-23 07:47 | Discharge Summary ---
Discharge Summary Date of Service November 23, 2024 Principal Dx & Hospital Course #1 = Principal Diagnosis (1) GI bleed due to NSAIDs: (2) Pre-syncope: (3) UTI (urinary tract infection): (4) Obesity hypoventilation syndrome: (5) Hypertension: Plan 74-year-old female with a history of distant gastric bypass surgery with ongoing NSAID use who presented with symptomatic anemia due to GI bleed. EGD showed a normal esophagus, gastric bypass with intact anastomosis and healthy mucosa, normal jejunum and no abnormalities. Follow-up nuclear medicine study showed enhancement at the excluded stomach which was not able to be visualized on EGD. She was treated with PPI therapy clinically improved with normalization of her blood pressure, uptrending hemoglobin counts, and resolution of all symptoms by time of discharge. She was discharged to continue PPI therapy, to discontinue NSAIDs. She also had a pansensitive Klebsiella UTI during admission which was treated with IV Rocephin and which was transitioned to Keflex on discharge. To do as outpatient: 1. Continue PPI twice daily therapy Protonix 40 mg 2. Follow-up with GI, PCP 3. Complete 3 additional days of Keflex 500 mg p.o. twice daily for UTI #GI bleed History of gastric bypass 23 years ago, additionally with NSAID use twice daily EGD with normal anastomosis/healthy mucosa. Normal esophagus and jejunum. Nuc med study shows active bleeding in excluded stomach. This is not able to be visualized on EGD .patient was treated with PPI therapy, clinically progressed well Clinically improved. Was observed for 1 additional day due to borderline hypotension and equivocal/slightly downtrending counts, then had complete resolution was normotensive and asymptomatic with uptrending hemoglobin counts at time of discharge Continue PPI twice daily, outpatient PCP and GI follow-up, avoid NSAIDs #Presyncopal event - Suspect 2/2 symptomatic anemia - CXR negative - EKG WNL - Head CT showed fusiform dilation of basilar artery, right maxillary sinus disease No evidence of ischemic cardiac disease - Troponin < 2.3 - Resolved with improvement in hemoglobin #UTI - Patient with dysuria - UA positive for nitrates, 1+ leukocyte esterase, 6-10 WBC, 4+ bacteria -UCx positive for Klebsiella veriicola, pansensitive Patient treated with Rocephin during admission completed a 4-day course of treatment. Was discharged to complete a total of 7 days of treatment for UTI with Keflex 500 mg twice daily #HTN - Continue atenolol and clonidine Chronic stable diagnoses: Anxiety/depression Admission HPI Per Admitting Provider Patient is a 74-year-old female with past medical history of allergies, hypertension, hyperlipidemia, GERD, hx of gastric bypass. She presented to the ED via EMS due to a near syncopal event, she reports dizziness, lightheadedness, nausea, dry heaving, and burning with urination. She also endorses dark stools and is on chronic Motrin 400 Mg twice daily. Patient was found to have a hemoglobin drop from around 15to 7.8 and Hemoccult positive. She is being admitted for a GI bleed. 1 unit pRBC ordered in ED to be transfused at time of admission. Patient seen at bedside with her daughter present. She has a history of gastric bypass. She stated she had a colonoscopy approximately 1 year ago possibly with [facility] that she stated showed a few polyps but no other abnormalities. She has never had an EGD. She came into the ED today because she felt like she was going to pass out when she was going to the bathroom with dizziness, lightheadedness, and fatigue. She stated for quite a while she has had dizziness, lightheadedness, fatigue, dyspnea on exertion. She was started on an iron supplement in May for iron deficiency anemia. When the symptoms began she started taking 2 a day which seemed to resolve her symptoms at first but now her symptoms have returned. She has no history of GI bleeds. She has been taking Motrin 400 Mg twice daily with omeprazole for several years. She has had dark brown stool, denies it being black for several months since starting the iron supplement. She denies any bright red blood in stool or vomiting up any bright red blood. Patient also endorses burning with urination for several days. She does not use nicotine products or drink alcohol daily. She has no history of lung disorders like COPD, asthma, JUAN. She took her home medications this morning but is due for her evening medications, will hold given n.p.o. status. She wishes to be full code. Patient agreeable to plan and 1 unit PRBC transfusion. Discharge Exam General: A&Ox3. NAD. Cooperative. HEENT: Atraumatic, normocephalic. Vision and hearing grossly intact Pulm: Symmetrical chest rise. No increased work of breathing. No respiratory di stress. Abdominal: Nontender, nondistended, soft. BS present. Discharge Plan Discharge Items Patient Disposition: Home - Self-Care Reason For Visit: GI BLEED Discharge Diagnosis: GI bleed Condition on Discharge: Fair Activity: Per Instructions section Non-emergency contact: Primary Care Provider and [employer] Call non-emergency contact if: you have any medication questions and your temperature is above 101.5 Follow-up/Referrals: Ann Abbasi MD [Primary Care Provider] - (Please call to schedule follow up with PCP) Helen Myers Jr, MD [Physician] - 11/26/24 2:30 pm (Hospital follow up scheduled with GI on November 26 at 2:30) Diet: Regular Addtl Attending Provider Instructions: You admitted to the hospital with symptomatic anemia. We gave you a unit of blood, which helped with your symptoms. We started you on two medications for acid suppression - famotidine and pantoprazole. Our GI colleagues did an endoscopy to try to identify the source of the bleeding. We were unable to visualize anything that was bleeding at that time. We did a nuclear medicine study to see if there were any red blood cells where they weren't supposed to be and there was a small area consistent with active bleeding in your extruded stomach. This was treated with antiacid medicines and your hemoglobin (blood counts) were gradually improving at time of discharge. Using medications like NSAIDs - ibuprofen, naproxen, aspirin, or Motrin can increase your risk of peptic ulcer disease and GI bleeding. We would recommend discontinuing any oral NSAIDs. We will continue with acid suppression with dual therapy (famotidine and pantoprazole) for the next week or so. Then decrease to solely pantoprazole 40 mg BID. You did have signs and symptoms of a urinary tract infection so we treated with antibiotics. Your urine did grow Klebsiella, a type of bacteria that commonly causes urinary tract infections. We will treat you with antibiotics for a total of 7 days. You are treated with 4 days of an IV antibiotic while in the hospital, you were discharged to continue 3 additional days of antibiotics with Keflex as noted below For your arthritis pain we would recommend topical Voltaren gel 3-4 times daily to the affected areas. You would also likely be safe to take oral Tylenol, but would discuss this with your PCP. Please follow up with your PCP in the next 7-10 days for continuity of care. Start: famotidine 20 mg twice a day pantoprazole 40 mg twice a day voltaren gel Stop: ibuprofen omeprazole Pending Studies at Discharge: No Stand-Alone Forms: My [facility], Smoking Cessation Medications and DC Order Prescriptions: New diclofenac sodium [Voltaren Arthritis Pain] 1 % Gel 2 g EXT QID Qty: 100 1RF pantoprazole 40 mg tablet,delayed release (DR/EC) 40 mg PO BID 30 Days Qty: 60 0RF famotidine 20 mg tablet 20 mg PO BID 14 Days Qty: 28 0RF cephalexin 500 mg capsule 500 mg PO BID 3 Days Qty: 6 0RF Continued clonidine HCl 0.1 mg tablet 0.1 mg PO BID atenolol 25 mg tablet 25 mg PO DAILY potassium chloride 10 mEq tablet extended release 10 meq PO DAILY ferrous sulfate [iron] 325 mg (65 mg iron) Tablet 325 mg PO DAILY montelukast 10 mg tablet 10 mg PO DAILY escitalopram oxalate 10 mg tablet 15 mg PO DAILY rosuvastatin 10 mg tablet 10 mg PO DAILY inulin 2 gram Tablet,Chewable 2 g PO DAILY Collagen Tablets 1 dose PO DAILY Rx Instructions: PT UNSURE OF STRENGTH. Discontinued ibuprofen 200 mg Tablet 400 mg PO BID omeprazole magnesium [Prilosec OTC] 20 mg Tablet,Delayed Release (Dr/Ec) 20 mg PO DAILY Discharge Orders: Discharge Order (Routine); Ordered 11/23/24 Ordered By: Sandoval Atkinson Admission Data Admit Date/Time: 11/18/24 23:40 Attending Provider: Sandoval Atkinson Admit Provider: Abram Gonzalez Primary Care Provider: Ann Abbasi Other Providers: Abram Gonzalez; Helen Myers Jr Other Interventions: Discharge Summary Assessment (RN) Last Done: 11/23/24 09:25 Hospital Stay Data Consultations 11/18/24 23:09 ED Decision to Admit Stat 11/19/24 01:26 Consult Gastroenterology Routine Procedures Performed Operation Date: 11/19/24 17:25 Actual Procedures p Esophagogastroduodenoscopy - Helen Myers Jr, MD Diagnostic Imagining Performed 11/18/24 22:23 CT head/brain wo con Stat Pending Results Patient Have Any Pending Studies at Discharge: No Discharge Instructions Given to Patient (Per Discharging Provider) You admitted to the hospital with symptomatic anemia. We gave you a unit of blood, which helped with your symptoms. We started you on two medications for acid suppression - famotidine and pantoprazole. Our GI colleagues did an endoscopy to try to identify the source of the bleeding. We were unable to visualize anything that was bleeding at that time. We did a nuclear medicine study to see if there were any red blood cells where they weren't supposed to be and there was a small area consistent with active bleeding in your extruded stomach. This was treated with antiacid medicines and your hemoglobin (blood counts) were gradually improving at time of discharge. Using medications like NSAIDs - ibuprofen, naproxen, aspirin, or Motrin can increase your risk of peptic ulcer disease and GI bleeding. We would recommend discontinuing any oral NSAIDs. We will continue with acid suppression with dual therapy (famotidine and pantoprazole) for the next week or so. Then decrease to solely pantoprazole 40 mg BID. You did have signs and symptoms of a urinary tract infection so we treated with antibiotics. Your urine did grow Klebsiella, a type of bacteria that commonly causes urinary tract infections. We will treat you with antibiotics for a total of 7 days. You are treated with 4 days of an IV antibiotic while in the hospital, you were discharged to continue 3 additional days of antibiotics with Keflex as noted below For your arthritis pain we would recommend topical Voltaren gel 3-4 times daily to the affected areas. You would also likely be safe to take oral Tylenol, but would discuss this with your PCP. Please follow up with your PCP in the next 7-10 days for continuity of care. Start: famotidine 20 mg twice a day pantoprazole 40 mg twice a day voltaren gel Stop: ibuprofen omeprazole Total Time Total Time Spent Total Time Spent (In Minutes): Time spend day of discharge 35 minutes including direct patient care, documentation, review of labs and images, and coordination of care. Coding Level of Care Code 58687 INP/OBS DISCH >30 MIN Diagnoses GI bleed due to NSAIDs K92.2; T39.395A Pre-syncope R55 UTI (urinary tract infection) N39.0 Obesity hypoventilation syndrome E66.2 Hypertension I10
[2024-11-23] MEDS: POLYETHYLENE (MIRALAX) 17 GM PACK PO SCH (08:21)
[2024-11-23 09:27] VITALS: PULSE 60
== END 2024-11-23 13:56 | disposition home or self-care (01) | DRG 378 ==
LOC: SUATTDRO → ED 21:29 → SUATTDRO 23:40 → 2S 23:40

== ENCOUNTER 2025-06-29 09:14 | Inpatient (IN) ==
--- NOTE | 2025-06-29 09:39 | Emergency Department Note ---
Impression & Plan Acute pulmonary embolism, Dizziness, Dyspnea on minimal exertion ED Provider Note NAME: YONI GAN AGE: 74 SEX: F : 1950 ARRIVES VIA: Ambulance jINFORMANT: Patient ED PROVIDER(S): Nate Woods MD CHIEF COMPLAINT: Shortness of breath, dizziness PLAN: Disposition: Admit MEDICAL DECISION MAKING: The patient is a pleasant 74 y/o woman with a past medical history of HTN, dyslipidemia, and GI bleed with admission in October of this year who presents to the emergency department via EMS for evaluation of SOB and dizziness. The patient reports she woke up this morning feeling lightheaded and as if she was going to pass out. She lay back down for a bit and was later to get up out of bed, however still wasn't feeling like herself. She was able to ambulate around her house, needing to hold on to maurer and other objects to steady herself. Has a walker that she uses when outside of the house. States she had a previous episode like this on Saturday while at PT when doing her exercises. Reports having a hard time catching her breath, however denies chest pain, chest discomfort or palpitations. Has h/o gastric bypass so meals are smaller, but no change in appetite. Tolerating fluids w/o issue. Denies lower extremity erythema or swelling. Denies calf tenderness, new weakness, numbness or tingling. Denies fever/chills, abdominal pain, N/V/D. EKG without overt acute ischemia. CXR negative for acute cardiopulmonary process per my personal preliminary review/interpretation. WBC and platelets normal limits. H/H within normal limits. Chemistry without metabolic acidosis. Electrolytes and LFTs unremarkable. High-sensitivity troponin 5.8, within normal limits. Lipase is normal. TSH within limits. UA without evidence of infection. D-dimer was elevated [address] imaging pursued. CT of the head without contrast was negative for acute abnormalities. CTA of the chest was performed and demonstrates right greater than left pulmonary emboli with there are lobar, segmental and subsegmental pulmonary emboli. Suggestion of straightening of the interventricular septum raises possibility of right heart strain however normal high-sensitivity troponin and patient has been hemodynamically stable. Findings were reviewed with the patient at the bedside. She does agree plan for admission for further management. Patient has not had any signs or symptoms of GI bleeding since her prior admission and so we will initiate treatment with IV heparin. Case was d/w ROXY Leach hospitalist who will evaluate the patient for admission. Further management per admitting team. This patient was managed with the assistance of resident, Dr. Magallon. I discussed the case with the resident, examined the patient, and confirm the findings and plan as documented in this note. Triage Nursing notes reviewed and agree them. Prior/external medical records reviewed Vital Signs: reviewed Differential diagnosis: Reactive airway disease, pneumonia, pneumothorax, COPD, CHF, infections, cardiac ischemia, pulmonary embolism, musculoskeletal, gastrointestinal, as well as other pathologies. ER treatment provided: See below. Diagnostics interpreted by me: ECG: Sinus rhythm, 61 bpm, LVH, no overt ST elevation or depression, QTc 424 QRS 88. Cardiac Monitoring: An order for continuous cardiac monitoring was placed and demonstrated sinus rhythm, 61 bpm, no ectopy. Laboratory studies: See below Imaging studies: See below Consultation(s): Case was d/w RIGO Leach hospitalist who will evaluate the patient for admission. HPI: Per MDM. ROS: See above HPI for pertinent positives & negatives. A total of 10 systems reviewed and were otherwise negative. VITALS:See Below PHYSICAL EXAMINATION: GENERAL: Awake, alert, in no distress HENT: Normocephalic, atraumatic. Oropharynx with dry mucous membranes and otherwise unremarkable. . EYES: Normal conjunctiva. Sclera non-icteric. NECK: Supple. No nuchal rigidity. FROM. No JVD. RESPIRATORY: Clear to auscultation. CARDIAC: Regular rate, normal rhythm. Extremities warm and well perfused. Pulses equal. ABDOMEN: Soft, non-distended. No tenderness to palpation. No rebound or guarding. No masses. MUSCULOSKELETAL: Chest examination reveals no tenderness. The back is symmetrical on inspection without obvious abnormality. There is no CVA tenderness to palpation. No joint edema. LOWER EXTREMITIES: Calves are equal size bilaterally and non-tender. No edema. No discoloration. NEURO: Normal sensorium. No sensory or motor deficits noted. SKIN: No rash or jaundice noted. ED COURSE: Critical Care: I have personally spent greater than 35 minutes of critical care time in the direct management of this patient. This includes bedside care, interpretation of diagnostic studies, and testing, discussion with consultants, patient, and family members, and other required patient management activities. This 35 minutes is in excess of all separately billable procedures. Nate Woods MD Past Med/Surg History Problem List (Updated 06/30/25 @ 19:36 by Nate Woods MD) Dyspnea on minimal exertion (Acute) Dizziness (Acute) Osteoarthritis Acute pulmonary embolism (Acute) Dyslipidemia Environmental and seasonal allergies Hypertension Medical History Prediabetes Symptomatic anemia GI bleed due to NSAIDs History of gastrointestinal bleeding Surgical History History of arthroscopic knee surgery History of hysterectomy with unilateral oophorectomy History of breast reconstruction History of mastectomy History of gastric bypass History of colonoscopy Social History Smoking Status: Never smoker Hx Alcohol Use: No Hx Substance Use: No Preferred Language: Turkish Communication Ability: Effective 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 Beliefs That Will Affect Care: None Current Living Situation: Alone Feels Safe at Home: Yes Assistive Devices: Walker Allergies Allergies Allergy/AdvReac Type Severity Reaction Status Date / Time sunflower oil Allergy Severe Anaphylaxis Verified 11/19/24 11:32 /HIVES sunflower seed Allergy Severe Anaphylaxis Verified 11/19/24 11:32 /HIVES gluten Allergy Intermediate Gastrointestinal Verified 11/19/24 11:32 Upset Home Meds Home Medications Medication Instructions Recorded Confirmed atenolol 25 mg tablet 25 mg PO DAILY 11/18/24 06/29/25 clonidine HCl 0.1 mg tablet 0.1 mg PO BID 11/18/24 06/29/25 escitalopram oxalate 10 mg tablet 15 mg PO DAILY 11/18/24 06/29/25 montelukast 10 mg tablet 10 mg PO HS 11/18/24 06/29/25 potassium chloride 10 mEq 10 meq PO DAILY 11/18/24 06/29/25 tablet,extended release rosuvastatin 10 mg tablet 10 mg PO DAILY 11/18/24 06/29/25 gabapentin 100 mg capsule 200 mg PO HS 06/29/25 06/29/25 pantoprazole 40 mg tablet,delayed 40 mg PO DAILY 06/29/25 06/29/25 release Results & Data (ED) Vital Signs Vital Signs - 24 hr 06/29/25 09:20 06/29/25 09:23 06/29/25 09:40 Temperature 36.8 C Temperature Source Oral Pulse Rate 66 58 L Pulse Rate [Apical] Pulse Rate from SpO2 Sensor Respiratory Rate 22 Respiratory Effort / Characteristics Respiratory Depth Respiratory Pattern Blood Pressure 172/107 H Blood Pressure [Left Arm] Blood Pressure Mean 128 Blood Pressure Mean [Left Arm] Pulse Oximetry 100 100 Oxygen Delivery Method Room Air Room Air Sepsis Recent Fever Within 48 Hours No Sepsis New/Unexplained Change in Mental Status N/A Sepsis Action Taken by Nursing No Action Required 06/29/25 09:42 06/29/25 09:45 06/29/25 10:09 Temperature Temperature Source Pulse Rate 55 L 57 L Pulse Rate [Apical] Pulse Rate from SpO2 Sensor Respiratory Rate 12 19 Respiratory Effort / Characteristics Respiratory Depth Respiratory Pattern Blood Pressure Blood Pressure [Left Arm] Blood Pressure Mean Blood Pressure Mean [Left Arm] Pulse Oximetry 96 95 96 Oxygen Delivery Method Room Air Sepsis Recent Fever Within 48 Hours Sepsis New/Unexplained Change in Mental Status Sepsis Action Taken by Nursing 06/29/25 10:12 06/29/25 10:27 06/29/25 10:33 Temperature Temperature Source Pulse Rate 53 L 59 L 71 Pulse Rate [Apical] Pulse Rate from SpO2 Sensor 68 Respiratory Rate 16 15 13 Respiratory Effort / Characteristics Respiratory Depth Respiratory Pattern Blood Pressure Blood Pressure [Left Arm] Blood Pressure Mean Blood Pressure Mean [Left Arm] Pulse Oximetry 93 93 95 Oxygen Delivery Method Sepsis Recent Fever Within 48 Hours Sepsis New/Unexplained Change in Mental Status Sepsis Action Taken by Nursing 06/29/25 10:45 06/29/25 11:00 06/29/25 11:20 Temperature Temperature Source Pulse Rate 55 L Pulse Rate [Apical] 52 L Pulse Rate from SpO2 Sensor Respiratory Rate 15 20 19 Respiratory Effort / Characteristics Non-Labored Respiratory Depth Normal Respiratory Pattern Regular Blood Pressure Blood Pressure [Left Arm] 160/83 H Blood Pressure Mean Blood Pressure Mean [Left Arm] 108 Pulse Oximetry 96 94 Oxygen Delivery Method Room Air Room Air Sepsis Recent Fever Within 48 Hours Sepsis New/Unexplained Change in Mental Status Sepsis Action Taken by Nursing 06/29/25 11:48 06/29/25 12:00 06/29/25 12:12 Temperature Temperature Source Pulse Rate 53 L 51 L 47 L Pulse Rate [Apical] Pulse Rate from SpO2 Sensor Respiratory Rate 17 13 Respiratory Effort / Characteristics Respiratory Depth Respiratory Pattern Blood Pressure Blood Pressure [Left Arm] Blood Pressure Mean Blood Pressure Mean [Left Arm] Pulse Oximetry 95 94 96 Oxygen Delivery Method Sepsis Recent Fever Within 48 Hours Sepsis New/Unexplained Change in Mental Status Sepsis Action Taken by Nursing 06/29/25 12:21 06/29/25 12:51 06/29/25 13:00 Temperature Temperature Source Pulse Rate 49 L 50 L 55 L Pulse Rate [Apical] Pulse Rate from SpO2 Sensor Respiratory Rate 15 16 16 Respiratory Effort / Characteristics Respiratory Depth Respiratory Pattern Blood Pressure 148/85 H Blood Pressure [Left Arm] Blood Pressure Mean 106 Blood Pressure Mean [Left Arm] Pulse Oximetry 94 95 95 Oxygen Delivery Method Sepsis Recent Fever Within 48 Hours Sepsis New/Unexplained Change in Mental Status Sepsis Action Taken by Nursing Laboratory Data Attestation: I reviewed the patient's lab results. 06/30/25 17:30 06/30/25 07:16 Lab Results 06/29/25 Range/Units 09:26 WBC 6.03 (4.8-10.8) K/ul RBC 5.05 (4.20-5.40) M/uL Hgb 13.4 (12.0-16.0) g/dl Hct 40.3 (37.0-47.0) % MCV 79.8 L (80.0-100.0) fL MCH 26.5 (25.0-34.0) pg MCHC 33.3 (32.0-36.0) g/dL RDW Std Deviation 51.2 H (36.4-46.3) fL RDW Coeff of Farooq 17.8 H (11.5-14.5) % Plt Count 214 (130-400) K/uL MPV 10.9 (9.4-12.4) fL Immature Gran % (Auto) 0.3 % Neut % (Auto) 68.0 % Lymph % (Auto) 17.7 % [place] % (Auto) 10.3 % Eos % (Auto) 3.2 % Baso % (Auto) 0.5 % Neut # (Auto) 4.10 (1.40-6.50) K/uL Lymph # (Auto) 1.07 L (1.20-3.40) K/uL [place] # (Auto) 0.62 H (0.11-0.59) K/uL Eos # (Auto) 0.19 (0.00-0.50) K/uL Baso # (Auto) 0.03 (0.00-0.20) K/uL Immature Gran # (Auto) 0.02 (0.01-0.20) K/uL Polychromasia 1+ D-Dimer 1830 H* (0-500) ug/L FEU Sodium 137 (136-145) mmol/L Potassium 4.2 (3.5-5.1) mmol/L Chloride 106 (98-107) mmol/L Carbon Dioxide 24 (21-32) mmol/L Anion Gap 7 (3-11) BUN 12 (6-23) mg/dl Creatinine 0.80 (0.6-1.2) mg/dl Est Cr Clr Drug Dosing 74.7 ml/min eGFR 77.75 BUN/Creatinine Ratio 15.0 (10-20) Glucose 112 H (70-99(Fasting)) mg/dl Calcium 9.8 (8.6-10.3) mg/dl Magnesium 1.9 (1.7-2.4) mg/dl Total Bilirubin 0.6 (0.2-1.0) mg/dl AST 24 (13-39) U/L ALT 22 (7-52) U/L Alkaline Phosphatase 68 (34-104) U/L Troponin I High Sens 5.8 (0-14) pg/ml Total Protein 7.1 (6.0-8.3) gm/dl Albumin 3.9 (3.4-5.0) gm/dl Globulin 3.2 (2.5-4.0) gm/dl Albumin/Globulin Ratio 1.2 (0.9-2) Lipase 15 (11-82) U/L TSH 1.571 (0.300-4.500) uIu/ml Administered Medications Clonidine HCl (Clonidine Hcl 0.1 Mg Tab) 0.1 mg PO BID JUANITA Stop: 07/29/25 20:59 Last Admin: 06/30/25 08:19 Dose: 0.1 mg Documented By: Admin: 06/29/25 22:14 Dose: 0.1 mg Documented By: JOLLY Escitalopram Oxalate (Escitalopram Oxalate 10 Mg Tab) 15 mg PO DAILY JUANITA Stop: 07/30/25 08:59 Last Admin: 06/30/25 08:21 Dose: 15 mg Documented By: KITTY Gabapentin (Gabapentin 100 Mg Cap) 200 mg PO HS JUANITA Stop: 07/29/25 20:59 Last Admin: 06/29/25 21:00 Dose: 200 mg Documented By: ESDebbie Heparin Sodium/Dextrose (Heparin 36773 Unit/500 Ml D5w) 25,000 units in 500 mls @ 22 mls/hr IV .[id number] JUANITA; Protocol Stop: 07/29/25 14:14 Last Admin: 06/30/25 13:02 Dose: 1,100 units/hr, 22 mls/hr Documented By: KITTY Co-signed By: JOMAR Titration: 06/30/25 13:02 Dose: Infused Documented By: KITTY Co-signed By: JOMAR Titration: 06/30/25 10:10 Dose: 1,100 units/hr, 22 mls/hr Documented By: KITTY Co-signed By: DTT Titration: 06/30/25 07:15 Dose: 1,100 units/hr, 22 mls/hr Documented By: KITTY Co-signed By: ESG Titration: 06/30/25 01:26 Dose: 1,100 units/hr, 22 mls/hr Documented By: ESG Co-signed By: MMG Titration: 06/30/25 00:11 Dose: 0 units/hr, 0 mls/hr Documented By: CLC Co-signed By: ESG Titration: 06/29/25 19:08 Dose: 1,350 units/hr, 27 mls/hr Documented By: ESG Co-signed By: LISAS Admin: 06/29/25 15:55 Dose: 1,350 units/hr, 27 mls/hr Documented By: ROSALINO Co-signed By: JOMAR Montelukast Sodium (Montelukast Sodium 10 Mg Tablet) 10 mg PO HS JUANITA Stop: 07/29/25 20:59 Last Admin: 06/29/25 21:00 Dose: 10 mg Documented By: JOLLY Pantoprazole Sodium (Pantoprazole 40 Mg Tab) 40 mg PO DAILY JUANITA Stop: 07/30/25 08:59 Last Admin: 06/30/25 08:20 Dose: 40 mg Documented By: KITTY Rosuvastatin Calcium (Rosuvastatin Calcium 10 Mg Tab) 10 mg PO DAILY JUANITA Stop: 07/30/25 08:59 Last Admin: 06/30/25 08:20 Dose: 10 mg Documented By: KITTY Discontinued Medications Heparin Sodium (Porcine) (Heparin Sod (Porcine) 1000 Unit/Ml) 1 units IV NOW ONE Stop: 06/29/25 14:14 Last Admin: 06/29/25 15:56 Dose: 6,000 units Documented By: ROSALINO Co-signed By: JOMAR Heparin Sodium/Dextrose (Heparin Iv Adult Wt-Based Standard W/ Initial Bolus Protocol) 1 each IV NOW STA; Protocol Stop: 06/29/25 13:59 Last Admin: 06/29/25 15:56 Dose: Not Given Documented By: ROSALINO Hydromorphone HCl (Hydromorphone Inj 0.5 Mg/0.5 Ml Syr) 0.25 mg IV NOW STA Stop: 06/30/25 16:14 Last Admin: 06/30/25 16:20 Dose: 0.25 mg Documented By: KITTY Hydromorphone HCl (Hydromorphone Inj 0.5 Mg/0.5 Ml Syr) 0.25 mg IV NOW STA Stop: 06/30/25 17:46 Last Admin: 06/30/25 17:52 Dose: 0.25 mg Documented By: KITTY Sodium Chloride (Nss) 500 mls @ 125 mls/hr IV .Q4H JUANITA Stop: 06/29/25 13:44 Last Infusion: 06/29/25 14:48 Dose: Infused Documented By: Admin: 06/29/25 09:53 Dose: 125 mls/hr Documented By: RADHAMES Pantoprazole Sodium (Protonix) 40 mg in 10 mls @ 5 mls/min IV NOW ONE Stop: 06/29/25 14:01 Last Admin: 06/29/25 15:56 Dose: Not Given Documented By: ROSALINO Iron Sucrose 300 mg/ Sodium (Chloride) 265 mls @ 176.667 mls/hr IV TODAY ONE Stop: 06/30/25 13:20 Last Infusion: 06/30/25 14:46 Dose: Infused Documented By: Admin: 06/30/25 13:03 Dose: 176.7 mls/hr Documented By: KITTY Famotidine (Pepcid 20mg Iv Push) 20 mg in 5 mls @ 2.5 mls/min IV NOW STA Stop: 06/30/25 16:14 Last Admin: 06/30/25 16:40 Dose: 2.5 mls/min Documented By: KITTY Ioversol (Optiray 320 125ml) 112 ml IV ONCE ONE Stop: 06/29/25 11:36 Last Admin: 06/29/25 11:35 Dose: 112 ml Documented By: CLARE Ioversol (Optiray 320 125ml) 118 ml IV ONCE ONE Stop: 06/30/25 18:18 Last Admin: 06/30/25 18:18 Dose: 118 ml Documented By: MARKY Ondansetron HCl (Ondansetron Inj 2 Mg/Ml 2 Ml Vial) 4 mg IV NOW STA Stop: 06/30/25 16:14 Last Admin: 06/30/25 16:20 Dose: 4 mg Documented By: KITTY Ondansetron HCl (Ondansetron Inj 2 Mg/Ml 2 Ml Vial) 4 mg IV NOW STA Stop: 06/30/25 17:46 Last Admin: 06/30/25 17:52 Dose: 4 mg Documented By: KITTY Imaging Data Radiologist's Impression: Chest X-Ray 06/29/25 09:36 XR chest 1V portable CLINICAL HISTORY: Chest pain, nonspecific COMPARISON STUDY: 12/07/2024 FINDINGS: Stable cardiomegaly without pulmonary vascular congestion. No consolidation or pleural effusion seen. No pneumothorax. IMPRESSION: No acute findings. ACT 112: Negative or not required by law. Electronically signed by: Matthew Wong M.D. 06/29/2025 10:11 AM Chest CTA 06/29/25 10:51 CT angio chest PE protocol CT DOSE: 1493.81 mGy.cm HISTORY: 74 years-old Female with PE. Acute shortness of breath with chest pain and hypertension TECHNIQUE: Multiple CTA images of the chest were obtained after the intravenous administration of 112 ml Optiray. Coronal and sagittal MIPS were obtained from the axial data set and were submitted for review. All measurements were obtained according to NASCET criteria. A dose lowering technique was utilized adhering to the principles of ALARA. COMPARISON: Chest radiograph of same day FINDINGS: CTA: Heart is mildly enlarged. Mild coronary artery calcifications. Atherosclerosis of the aorta without aneurysm or dissection. There is patency of the imaged great vessels. There are lobar, segmental and subsegmental right middle and lower lobe pulmonary emboli. No sagittal pulmonary embolus is seen. Additional segmental and subsegmental pulmonary emboli are present within the lingula with possible subsegmental pulmonary emboli within the left lower lobe. Mild straightening of the intraventricular septum. CT CHEST: No thyroid nodule or lymphadenopathy identified. There is no pneumothorax, pleural effusion, airspace consolidation or pulmonary edema. Mild mosaic attenuation of the lungs suggestive of air trapping with areas of atelectasis. No definite pulmonary infarct identified. Central airways are patent. There is no acute upper abdominal abnormality. Prior gastric bypass. Soft tissues are within normal limits. Likely benign peripherally calcified 2.2 cm structure within the midline anterior chest on image 140. Postoperative changes of the anterior chest wall. No acute fracture or destructive bone lesion. IMPRESSION: 1. Right greater than left pulmonary emboli with findings suspicious for associated right heart strain. 2. Mild atelectasis without pleural effusion or pulmonary infarct identified. ACT 112: Negative or not required by law. The above report was generated using voice recognition software. It may contain grammatical, syntax or spelling errors. Electronically signed by: Lonnie Pennington M.D. 06/29/2025 12:[address] 06/29/25 11:00 CT SCAN OF THE BRAIN WITHOUT IV CONTRAST CLINICAL HISTORY: Dizziness COMPARISON STUDY: CT of the brain dated 11/18/2024 TECHNIQUE: Unenhanced CT scan of the brain is performed from the vertex to the skull base. Images are reviewed in the axial, sagittal, coronal planes. A dose lowering technique was utilized adhering to the principles of ALARA. FINDINGS: Brain parenchyma: There is age-related involutional change noting mild to moderate subcortical and periventricular microangiopathic disease. There is no hemorrhage, mass effect, or evidence of acute territorial ischemia by CT criteria. Schwartz-white matter differentiation is preserved. No extra-axial fluid collection is seen. Ventricles, sulci, cisterns: Prominent secondary to involutional change. Intracranial vasculature: There is atherosclerotic calcification of the cavernous carotid arteries. Dolichoectasia of the basilar is similar to previous. Calvarium: Unremarkable. Sinuses and mastoids: There is mild mucosal thickening in the right maxillary antrum. There is trace mucosal thickening within the ethmoid sinuses. The mastoid air cells are well pneumatized. Orbits: The bony orbits are grossly intact. IMPRESSION: There is no hemorrhage, mass effect, or evidence of acute territorial ischemia by CT criteria. ACT 112: Negative or not required by law. Electronically signed by: Cj Gore M.D. 06/29/2025 11:49 AM Discharge Plan Visit Data Chief Complaint: Dizziness Stated Complaint: DIZZY, SOB ED Provider: Nate Woods ED Midlevel Provider: Juani Magallon Discharge Problem: Acute pulmonary embolism, Dizziness, Dyspnea on minimal exertion Patient Disposition: Admitted As Inpatient Condition: Serious Discharge Instructions Interventions: ED Discharge Assessment Last Done: 06/29/25 14:38 Discharge Problem: Acute pulmonary embolism Qualifiers: Pulmonary embolism type: unspecified Acute cor pulmonale presence: unspecified Qualified Code(s): I26.99 - Other pulmonary embolism without acute cor pulmonale
[2025-06-29] MEDS: SODIUM CHLORIDE 0.9% 500 ML IV SCH (09:53)
--- NOTE | 2025-06-29 10:12 | XRay Report ---
XR chest 1V portable CLINICAL HISTORY: Chest pain, nonspecific COMPARISON STUDY: 12/07/2024 FINDINGS: Stable cardiomegaly without pulmonary vascular congestion. No consolidation or pleural effu kathryn seen. No pneumothorax. IMPRESSION: No acute findings. ACT 112: Negative or not required by law. Electronically signed by: Matthew Wong M.D. 06/29/2025 10:11 AM
[2025-06-29 10:31] LABS: Alanine Aminotransferase 22.0 U/L (7-52); Albumin Globulin Ratio 1.2 (0.9-2); Albumin Level 3.9 gm/dl (3.4-5.0); Alkaline Phosphatase 68.0 U/L (34-104); Anion Gap 7.0 (3-11); Bilirubin,Total 0.6 mg/dl (0.2-1.0); Blood Urea Nitrogen 12.0 mg/dl (6-23); Calcium 9.8 mg/dl (8.6-10.3); Carbon Dioxide 24.0 mmol/L (21-32); Chloride 106.0 mmol/L (98-107); Creatinine Clr Calc Pharmacy 74.7 ml/min; Globulin 3.2 gm/dl (2.5-4.0); Glucose 112.0 mg/dl (70-99(Fasting)); Lipase 15.0 U/L (11-82); Magnesium 1.9 mg/dl (1.7-2.4); Potassium 4.2 mmol/L (3.5-5.1); Sodium 137.0 mmol/L (136-145); Total Protein 7.1 gm/dl (6.0-8.3)
[2025-06-29 10:41] LABS: Hematocrit (blood only) 40.3 % (37.0-47.0); Hemoglobin 13.4 g/dl (12.0-16.0); Immature Granulocytes # (auto) 0.02 K/uL (0.01-0.20); Immature Granulocytes % (auto) 0.3 %; Mean Corpuscular Hemoglobin 26.5 pg (25.0-34.0); Mean Corpuscular Volume 79.8 fL (80.0-100.0); Platelet Count 214 K/uL (130-400); Polychromasia 1+; RDW Standard Deviation 51.2 fL (36.4-46.3); Red Blood Count 5.05 M/uL (4.20-5.40); White Blood Count 6.03 K/ul (4.8-10.8)
[2025-06-29 10:46] LABS: Thyroid Stimulating Hormone 1.571 uIu/ml (0.300-4.500)
[2025-06-29] MEDS: OPTIRAY 320 125ml IV ONE (11:35)
--- NOTE | 2025-06-29 11:50 | CT Scan Report ---
CT SCAN OF THE BRAIN WITHOUT IV CONTRAST CLINICAL HISTORY: Dizziness COMPARISON STUDY: CT of the brain dated 11/18/2024 TECHNIQUE: Unenhanced CT scan of the brain is performed from the vertex to the skull base. Images are reviewed in the axial, sagittal, coronal planes. A dose lowering technique was utilized adhering to the principles of ALARA. FINDINGS: Brain parenchyma: There is age-related involutional change noting mild to moderate subcortical and pe riventricular microangiopathic disease. There is no hemorrhage, mass effect, or evidence of acute ter ritorial ischemia by CT criteria. Schwartz-white matter differentiation is preserved. No extra-axial flui d collection is seen. Ventricles, sulci, cisterns: Prominent secondary to involutional change. Intracranial vasculature: There is atherosclerotic calcification of the cavernous carotid arteries. D olichoectasia of the basilar is similar to previous. Calvarium: Unremarkable. Sinuses and mastoids: There is mild mucosal thickening in the right maxillary antrum. There is trace mucosal thickening within the ethmoid sinuses. The mastoid air cells are well pneumatized. Orbits: The bony orbits are grossly intact. IMPRESSION: There is no hemorrhage, mass effect, or evidence of acute territorial ischemia by CT natacha pride. ACT 112: Negative or not required by law. Electronically signed by: Cj Gore M.D. 06/29/2025 11:49 AM
--- NOTE | 2025-06-29 12:06 | Electrocardiogram Report ---
Test Reason : Blood Pressure : */* mmHG Vent. Rate : 61 BPM Atrial Rate : 65 BPM P-R Int : 244 ms QRS Dur : 88 ms QT Int : 422 ms P-R-T Axes : 100 -18 -1 degrees QTcB Int : 424 ms Sinus rhythm with 1st degree A-V block Minimal voltage criteria for LVH, may be normal variant ( R in aVL ) Inferior infarct , age undetermined Poor R wave progression, consider anterior CT vs. lead placement vs. LVH Abnormal ECG When compared with ECG of 07-Dec-2024 13:05, Current undetermined rhythm precludes rhythm comparison, needs review Inferior infarct is now Present Confirmed by Kel Artis ([id number]) on 06/29/2025 12:06:38 PM Referred By: REFERRED SELF Confirmed By: Kel Artis
--- NOTE | 2025-06-29 12:10 | CT Scan Report ---
CT angio chest PE protocol CT DOSE: 1493.81 mGy.cm HISTORY: 74 years-old Female with PE. Acute shortness of breath with chest pain and hypertension TECHNIQUE: Multiple CTA images of the chest were obtained after the intravenous administration of 112 ml Optiray. Coronal and sagittal MIPS were obtained from the axial data set and were submitted for review. All measurements were obtained according to NASCET criteria. A dose lowering technique was u tilized adhering to the principles of ALARA. COMPARISON: Chest radiograph of same day FINDINGS: CTA: Heart is mildly enlarged. Mild coronary artery calcifications. Atherosclerosis of the aorta without a neurysm or dissection. There is patency of the imaged great vessels. There are lobar, segmental and s ubsegmental right middle and lower lobe pulmonary emboli. No sagittal pulmonary embolus is seen. Tristan tional segmental and subsegmental pulmonary emboli are present within the lingula with possible subse gmental pulmonary emboli within the left lower lobe. Mild straightening of the intraventricular septu m. CT CHEST: No thyroid nodule or lymphadenopathy identified. There is no pneumothorax, pleural effusion, airspace consolidation or pulmonary edema. Mild mosaic attenuation of the lungs suggestive of air trapping wi th areas of atelectasis. No definite pulmonary infarct identified. Central airways are patent. There is no acute upper abdominal abnormality. Prior gastric bypass. Soft tissues are within normal l imits. Likely benign peripherally calcified 2.2 cm structure within the midline anterior chest on leif ge 140. Postoperative changes of the anterior chest wall. No acute fracture or destructive bone lesio n. IMPRESSION: 1. Right greater than left pulmonary emboli with findings suspicious for associated right heart strai n. 2. Mild atelectasis without pleural effusion or pulmonary infarct identified. ACT 112: Negative or not required by law. The above report was generated using voice recognition software. It may contain grammatical, syntax o r spelling errors. Electronically signed by: Lonnie Pennington M.D. 06/29/2025 12:07 PM
--- NOTE | 2025-06-29 14:09 | History & Physical Report ---
Date of Service June 29, 2025 Assessment & Plan (1) History of gastrointestinal bleeding: (2) Hypertension: (3) Acute pulmonary embolism: (4) Osteoarthritis: Plan 74 year old female presents to the ER with dizziness on standing started June 29 (day of admission). No shortness of breath or chest pain. #Acute pulmonary embolus Unprovoked - no preceding long haul journey, surgery. Does not smoke. Cancer screenings up to date. IV heparin standard with bolus due to history of GI bleed using this instead of Lovenox TTE to assess for right heart strain although troponin notably negative. US venous doppler left leg as if present without end point may need CT A/P venogram to assess for compression in pelvis such as May-Turners #Hypertension Initially hesitant to restart clonidine and atenolol given dizziness but never w as at rest in bed and current BP high therefore will continue her usual medications currently #Osteoarthritis Currently of NSAIDs since GI bleed She reports taking gabaentin at night for this reason #History of gastrointestinal bleed In October 2024 in setting of NSAID use with gastric bypass, currently on pantoprazole 40mg PO daily #Depression/anxiety Continue Lexpro VTE Prophylaxis - IV heparin Disposition - admit to PCU Admission and Anticipated Discharge Date Admission Date: June 29, 2025 History of Present Illness Chief Complaint: Dizziness Primary Care Provider: Ann Abbasi MD Stefanie Paris is a 74 year old female who presents to the ER with dizziness. This morning when she went to get out of bed she sat up and was so dizzy she couldn't stand. She had to lie back down for a while to get her bearings. She initially wondered whether she was over reacting but then decided to go to the living room and call 911. She reports a little shortness of breath but no chest pain. No fever, chills, cough. She had a little headache this afternoon but thinks that was because she missed her morning coffee and has now resolved. No other respiratory, gastrointestinal or urinary symptoms. With hindsight she also reports having a little dizziness with physical therapy on Saturday but felt fine yesterday. In the ER d-dimer was raised and she underwent CT pulmonary angiogram confirming pulmonary emboli. She denies any prior DVT or PE. No calf pain or swelling. No autoimmune conditions. No recent long haul flights or surgeries. She has been having more problems with osteoarthritis since stopping NSAIDs after gastrointestinal bleed in October but has not been immobile and doing usual home tasks such as mowing. Knee osteoarthritis improving with physical therapy. She reports being up to date with all her cancer screenings. 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 She also had a squamous cell skin cancer removed in 2010. She has never smoked and is not on estrogen therapy. She notably had a gastrointestinal bleed in October suspected from NSAID use in setting of gastric bypass. She has been on pantoprazole and off NSAIDs since then. Allergies Allergy/AdvReac Type Severity Reaction Status Date / Time sunflower oil Allergy Severe Anaphylaxis Verified 11/19/24 11:32 /HIVES sunflower seed Allergy Severe Anaphylaxis Verified 11/19/24 11:32 /HIVES gluten Allergy Intermediate Gastrointestinal Verified 11/19/24 11:32 Upset Home Medications Medication Instructions Recorded Confirmed Type atenolol 25 mg tablet 25 mg PO DAILY 11/18/24 06/29/25 History clonidine HCl 0.1 mg tablet 0.1 mg PO BID 11/18/24 06/29/25 History escitalopram oxalate 10 mg tablet 15 mg PO DAILY 11/18/24 06/29/25 History montelukast 10 mg tablet 10 mg PO HS 11/18/24 06/29/25 History potassium chloride 10 mEq 10 meq PO DAILY 11/18/24 06/29/25 History tablet,extended release rosuvastatin 10 mg tablet 10 mg PO DAILY 11/18/24 06/29/25 History gabapentin 100 mg capsule 200 mg PO HS 06/29/25 06/29/25 History pantoprazole 40 mg tablet,delayed 40 mg PO DAILY 06/29/25 06/29/25 History release Past Med/Surg History Problem List (Updated 06/29/25 @ 20:02 by Marcelo Gore MD) Osteoarthritis Acute pulmonary embolism (Acute) Dyslipidemia Environmental and seasonal allergies Hypertension Medical History (Updated 06/29/25 @ 20:02 by Marcelo Gore MD) Prediabetes Symptomatic anemia GI bleed due to NSAIDs History of gastrointestinal bleeding Surgical History (Updated 06/29/25 @ 20:00 by Marcelo Gore MD) History of arthroscopic knee surgery History of hysterectomy with unilateral oophorectomy History of breast reconstruction History of mastectomy History of gastric bypass History of colonoscopy Social History Smoking Status: Never smoker Hx Alcohol Use: No Hx Substance Use: No Preferred Language: Indonesian Communication Ability: Effective 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 Beliefs That Will Affect Care: None Current Living Situation: Alone Feels Safe at Home: Yes Assistive Devices: None Review of Systems Review of Systems: All systems reviewed & are unremarkable except as noted in HPI & below Physical Exam Constitutional: WD/WN, vitals as above Respiratory: normal respiratory effort, lungs clear to auscultation Cardiovascular: RRR, no murmur, no edema Extremities: no calf tenderness (left calf > right calf circumference) Gastrointestinal (Abdomen): normal bowel sounds, soft, nontender, no hepatosplenomegaly Skin: no rashes, warm and dry Neurologic: moves all extremities and awake; not confused Results & Data Results & Data Vital Signs (Past 12 Hours) Vital Signs Temp Pulse Pulse Resp BP BP Pulse Ox 06/29/25 13:00 55 L 16 148/85 H 95 06/29/25 12:51 50 L 16 95 06/29/25 12:21 49 L 15 94 06/29/25 12:12 47 L 96 06/29/25 12:00 51 L 13 94 06/29/25 11:48 53 L 17 95 06/29/25 11:20 19 06/29/25 11:00 52 L 20 160/83 H 94 06/29/25 10:45 55 L 15 96 06/29/25 10:33 71 13 95 06/29/25 10:27 59 L 15 93 06/29/25 10:12 53 L 16 93 06/29/25 10:09 57 L 19 96 06/29/25 09:45 95 06/29/25 09:42 55 L 12 96 06/29/25 09:40 58 L 06/29/25 09:23 100 06/29/25 09:20 36.8 C 66 22 172/107 H 100 O2 Del Method 06/29/25 13:00 06/29/25 12:51 06/29/25 12:21 06/29/25 12:12 06/29/25 12:00 06/29/25 11:48 06/29/25 11:20 Room Air 06/29/25 11:00 Room Air 06/29/25 10:45 06/29/25 10:33 06/29/25 10:27 06/29/25 10:12 06/29/25 10:09 06/29/25 09:45 Room Air 06/29/25 09:42 06/29/25 09:40 06/29/25 09:23 Room Air 06/29/25 09:20 Room Air Laboratory Results Abnormal lab results 06/29/25 Range/Units 09:26 MCV 79.8 L (80.0-100.0) fL RDW Std Deviation 51.2 H (36.4-46.3) fL RDW Coeff of Farooq 17.8 H (11.5-14.5) % Lymph # (Auto) 1.07 L (1.20-3.40) K/uL Norman # (Auto) 0.62 H (0.11-0.59) K/uL D-Dimer 1830 H* (0-500) ug/L FEU Glucose 112 H (70-99(Fasting)) mg/dl Diagnostic Findings CT SCAN OF THE BRAIN WITHOUT IV CONTRAST CLINICAL HISTORY: Dizziness COMPARISON STUDY: CT of the brain dated 11/18/2024 TECHNIQUE: Unenhanced CT scan of the brain is performed from the vertex to the skull base. Images are reviewed in the axial, sagittal, coronal planes. A dose lowering technique was utilized adhering to the principles of ALARA. FINDINGS: Brain parenchyma: There is age-related involutional change noting mild to moderate subcortical and periventricular microangiopathic disease. There is no hemorrhage, mass effect, or evidence of acute territorial ischemia by CT criteria. Schwartz-white matter differentiation is preserved. No extra-axial fluid collection is seen. Ventricles, sulci, cisterns: Prominent secondary to involutional change. Intracranial vasculature: There is atherosclerotic calcification of the cavernous carotid arteries. Dolichoectasia of the basilar is similar to previous. Calvarium: Unremarkable. Sinuses and mastoids: There is mild mucosal thickening in the right maxillary antrum. There is trace mucosal thickening within the ethmoid sinuses. The mastoid air cells are well pneumatized. Orbits: The bony orbits are grossly intact. IMPRESSION: There is no hemorrhage, mass effect, or evidence of acute territorial ischemia by CT criteria. CT angio chest PE protocol CT DOSE: 1493.81 mGy.cm HISTORY: 74 years-old Female with PE. Acute shortness of breath with chest pain and hypertension TECHNIQUE: Multiple CTA images of the chest were obtained after the intravenous administration of 112 ml Optiray. Coronal and sagittal MIPS were obtained from the axial data set and were submitted for review. All measurements were obtained according to NASCET criteria. A dose lowering technique was utilized adhering to the principles of ALARA. COMPARISON: Chest radiograph of same day FINDINGS: CTA: Heart is mildly enlarged. Mild coronary artery calcifications. Atherosclerosis of the aorta without aneurysm or dissection. There is patency of the imaged great vessels. There are lobar, segmental and subsegmental right middle and lower lobe pulmonary emboli. No sagittal pulmonary embolus is seen. Additional segmental and subsegmental pulmonary emboli are present within the lingula with possible subsegmental pulmonary emboli within the left lower lobe. Mild straightening of the intraventricular septum. CT CHEST: No thyroid nodule or lymphadenopathy identified. There is no pneumothorax, pleural effusion, airspace consolidation or pulmonary edema. Mild mosaic attenuation of the lungs suggestive of air trapping with areas of atelectasis. No definite pulmonary infarct identified. Central airways are patent. There is no acute upper abdominal abnormality. Prior gastric bypass. Soft tissues are within normal limits. Likely benign peripherally calcified 2.2 cm structure within the midline anterior chest on image 140. Postoperative changes of the anterior chest wall. No acute fracture or destructive bone lesion. IMPRESSION: 1. Right greater than left pulmonary emboli with findings suspicious for associated right heart strain. 2. Mild atelectasis without pleural effusion or pulmonary infarct identified. XR chest 1V portable CLINICAL HISTORY: Chest pain, nonspecific COMPARISON STUDY: 12/07/2024 FINDINGS: Stable cardiomegaly without pulmonary vascular congestion. No consolidation or pleural effusion seen. No pneumothorax. IMPRESSION: No acute findings. Medications Administered ER Medications Given: Normal saline 500ml @ 125ml/hr Heparin IV standard bolus with drip ECG Rate (beats per minute): 61 Rhythm: normal sinus Findings: + 1st degree AV block Comparison ECG Date: from (December 07, 2024) Change: no significant change Code Status & VTE Plan Code Status Full VTE Prophylaxis Plan VTE Prophylaxis will be ordered: Yes PG Care Time/CCT Total # of Minutes Spent Total Time Spent with Patient: Total time spent is greater than 50% in coordination of care (as documented) at patient's floor/unit and/or counseling patient: Coding Level of Care Code 13611 INT INP/OBS CARE MIN Diagnoses History of gastrointestinal bleeding Z87.19 Hypertension I10 Acute pulmonary embolism I26.99 Osteoarthritis M19.90
[2025-06-29] MEDS ORDERED: ACETAMINOPHEN 325 MG TAB PO PRN (15:15)
[2025-06-29] MEDS: HEPARIN 25000 UNIT/500 ML D5W 25,000 UNITS/500 ML BAG IV SCH (15:55)
[2025-06-29] MEDS: PANTOprazole 40 MG/10 ML SYR IV ONE (15:56)
[2025-06-29] MEDS: Heparin IV Adult Wt-Based Standard w/ INITIAL Bolus Protocol IV STA (15:56)
[2025-06-29] MEDS: HEPARIN SOD (PORCINE) 1000 UNIT/ML IV ONE (15:56)
--- NOTE | 2025-06-29 16:04 | XCELERA ---
[id number]
[2025-06-29 17:58] LABS: Appearance Urine Clear (Clear); Glucose Urine UA Negative (Negative)
[2025-06-29] MEDS: GABAPENTIN 100 MG CAP PO SCH (21:00)
[2025-06-29] MEDS: MONTELUKAST SODIUM 10 MG TABLET PO SCH (21:00)
--- NOTE | 2025-06-29 22:54 | Ultrasound Report ---
Exam(s): US VENOUS LEFT LOWER EXTREMITY EXAM: US Duplex Left Lower Extremity Veins CLINICAL HISTORY: Reason for exam: left leg swelling ?DVT. OTHER: Other Notes: Pulmonary emboli LLE swelling. TECHNIQUE: Real-time duplex ultrasound scan of the left lower extremity veins integrating B-mode two-dimensional vascular structure, Doppler spectral analysis, color flow Doppler imaging and compression. COMPARISON: No relevant prior studies available. FINDINGS: Deep veins: Unremarkable. No DVT in the visualized common femoral, femoral, proximal deep femoral or popliteal veins. The veins demonstrate normal color flow, are normally compressible, with normal phasic flow and/or augmentation response. Superficial veins: Unremarkable. No thrombus in the visualized great saphenous vein. Soft tissues: No acute findings. No popliteal cyst. IMPRESSION: Negative left lower extremity duplex venous ultrasound. No evidence of DVT. Electronically signed by: Daniel Morgan MD 06/29/25 22:53 PM
[2025-06-30 00:08] LABS: ANTI-Xa, UFH(UnfractionatedHep 0.99 IU/ml (0.3-0.7)
[2025-06-30 07:37] LABS: Hematocrit (blood only) 38.6 % (37.0-47.0); Hemoglobin 12.4 g/dl (12.0-16.0); Immature Granulocytes # (auto) 0.02 K/uL (0.01-0.20); Immature Granulocytes % (auto) 0.5 %; Mean Corpuscular Hemoglobin 25.6 pg (25.0-34.0); Mean Corpuscular Volume 79.8 fL (80.0-100.0); Platelet Count 212 K/uL (130-400); RDW Standard Deviation 50.4 fL (36.4-46.3); Red Blood Count 4.84 M/uL (4.20-5.40); White Blood Count 4.18 K/ul (4.8-10.8)
[2025-06-30 08:02] LABS: ANTI-Xa, UFH(UnfractionatedHep 0.61 IU/ml (0.3-0.7)
[2025-06-30 08:16] LABS: Anion Gap 7.0 (3-11); Blood Urea Nitrogen 9.0 mg/dl (6-23); Calcium 9.9 mg/dl (8.6-10.3); Carbon Dioxide 25.0 mmol/L (21-32); Chloride 106.0 mmol/L (98-107); Creatinine Clr Calc Pharmacy 76.0 ml/min; Glucose 119.0 mg/dl (70-99(Fasting)); Potassium 4.0 mmol/L (3.5-5.1); Sodium 138.0 mmol/L (136-145)
[2025-06-30] MEDS: ROSUVASTATIN CALCIUM 10 MG TAB PO SCH (08:20)
[2025-06-30] MEDS: ESCITALOPRAM OXALATE 10 MG TAB PO SCH (08:21)
[2025-06-30] MEDS ORDERED: GABAPENTIN 100 MG CAP PO SCH (09:00)
[2025-06-30] MEDS ORDERED: Nursing to Pharmacy Communication SCH (10:15)
[2025-06-30 10:41] LABS: Iron 30.0 mcg/dl (35-150); Total Iron Binding Cap Calc 463.0 mcg/dl (250-450); Transferrin 331.0 mg/dl (200-360); Transferrin (FE) Percent Satur 6.0 % (15-50)
[2025-06-30 11:02] LABS: Ferritin 10.3 ng/ml (8-388)
--- NOTE | 2025-06-30 11:58 | Hospitalist Progress Note ---
Date of Service June 30, 2025 Assessment & Plan (1) Acute pulmonary embolism: (2) History of gastrointestinal bleeding: (3) Hypertension: (4) Osteoarthritis: (5) Abdominal pain: (6) Iron deficiency anemia: (7) History of Brett-en-Y gastric bypass: (8) Abnormal LFTs: (9) Abnormal gall bladder diagnostic imaging: (10) Lactic acidosis: Plan 74yo female presented to the ER with dizziness with minimal shortness of breath. D-dimer elevated at ER presentation which led to CTA chest showing numerous b/l PEs. #Acute b/l pulmonary emboli - -Unprovoked - no recent surgery, prolonged travel, prolonged immobility, etc. -no famHx of VTE -currently on IV heparin standard dosing -due to gastric bypass status DOAC absorbability is reduced -looking at guidelines from Up-to-Date and after [place] correspondence with our Coumadin clinic a lovenox bridge to coumadin is likely our safest bet for outpatient Rx -LLE venous duplex negative for DVT -I obtained a RLE duplex - also negative for DVT -echo with normal LV/RV function -with her persistent Fe deficiency anemia - GI malignancy? other? -will need colonoscopy, etc (due for such in 2025 anyway) #severe upper abd pain - -began this afternoon without provocation -LFTs now elevated, GB wall thickened on CTA abd/pelvis -?brewing cholecystitis? -will make NPO, provide IV fluids, provide pain meds + anti-emetics, and start IV zosyn -obtain gen surg consultation -consider GI consultation given the duodenal inflammation seen on CTA a/p -IV pepcid already given; moving forward add IV protonix BID in the event she has PUD causing her pain -repeat LFTs with lipase in am -although she has mildly elevated lactic acid level I do not believe she has ischemic bowel #Hypertension - -currently on clonidine and atenolol -orthostatic BPs are negative -marked BP elevations this afternoon likely due to pain -with NPO status make lopressor IV available on PRN basis #Osteoarthritis - -cont gabapentin #History of gastrointestinal bleed - -EGD at that time did not isolate a source but presumed UGI in origin -has been taking PPI once daily at home -duodenum with ?inflammation on CTA a/p this evening -change PPI to IV PPI twice daily -serial H/H's -consider GI consultation #Depression/anxiety - -Continue Lexpro #Fe deficiency anemia - -with gastric bypass status she will not absorb PO iron -gave venover 300mg IV x 1 earlier today -will likely need additional runs in the future -check B12/folatein am to be complete -with ongoing Fe def chronically does she have an underlying GI tract malignancy that could have set her up for the VTE event?? #Dizziness - -orthostatic BPs negative -no vertigo -etiology uncertain -echo wnl -due to PEs??? but again BPs stable, not tachycardic, etc. VTE Prophylaxis - IV heparin multiple visits to bedside, conversation with gen surg, addressing the acute abd pain, etc -- prolonged service with total care time today on all activities about 90 minutes Admission and Anticipated Discharge Date Admission Date: June 29, 2025 Subjective multiple visits to the bedside today first visit was this am on rounds she was resting comfortably in bed still some mild lightheadedness with standing but orthostatic BPs were negative denied any abd pain denied any recent melena or BRPBR took oral iron up until several months ago then it was stopped minimal dyspnea on exertion no recent travel no recent surgery no famhx of VTE during the late afternoon, after using the toilet, she developed the acute onset of severe upper abd pain with nausea and dry heaves I was contacted by staff about this acute change and came to her bedside she was actively vomiting/having dry heaves she reported "Feeling terrible" and had severe abd pain ordered dilaudid and zofran IV for her pain/nausea, respectively EKG obtained STAT - my reading - no change from prior EKG (NSR, IRBBB, T wave inversions anteroseptal leads but these are chronic) labs ordered STAT CTA a/p obtained in addition I ordered pepcid 20mg IV x 1 despite the dilaudid/zofran/pepcid IV she continued with pain & nausea her BPs were also very elevated I reordered a 2nd dose each of dilaudid & zofran labs returned with mild lactic acidosis and newly elevated LFTs but normal lipase CTA a/p returned with gall bladder wall thickening and duodenal inflammation STAT RUQ U/s ordered urgent consult placed to gen surg Review of Systems Review of Systems: gen - no fevers, no recent weight loss cv - no cp, no orthopnea, no edema pulm - minimal ZAYAS; no cough GI - see HPI Physical Exam Physical Exam: first visit - AM rounds: gen - lying comfortably in bed, NAD, pleasant mouth - MMM neck - no JVD heart - RRR, s1 s2, no murmur lungs - CTA b/l abd - soft NT ND BS+; no HSM ext - no edema, pulses 2+ b/l feet psych - a/o x 3 2nd visit - late afternoon: gen - VERY uncomfortable/in distress/in pain/dry-heaving neck - no JVD heart - RRR, s1 s2 lungs - CTA b/l abd - very tender RUQ and high epigastric region to palpation; no peritoneal signs; abdomen remains soft ext - pulses b/l feet 2+ Results & Data Results & Data Vital Signs (Past 12 Hours) Vital Signs Temp Pulse Pulse Resp BP Pulse Ox O2 Del Method 06/30/25 08:00 52 L 06/30/25 07:16 36.5 C 53 L 18 138/85 94 Room Air 06/30/25 03:46 36.4 C L 62 18 100/55 L 93 Room Air 06/30/25 00:00 61 Laboratory Results Laboratory Results - last 24 hr 06/29/25 06/29/25 06/30/25 22:47 Unknown 07:16 WBC 4.18 L RBC 4.84 Hgb 12.4 Hct 38.6 MCV 79.8 L MCH 25.6 MCHC 32.1 RDW Std Deviation 50.4 H RDW Coeff of [place] 17.5 H Plt Count 212 MPV 10.0 Immature Gran % (Auto) 0.5 Neut % (Auto) 58.4 Lymph % (Auto) 24.6 [place] % (Auto) 11.2 Eos % (Auto) 4.8 Baso % (Auto) 0.5 Neut # (Auto) 2.44 Lymph # (Auto) 1.03 L Emery # (Auto) 0.47 Eos # (Auto) 0.20 Baso # (Auto) 0.02 Immature Gran # (Auto) 0.02 Heparin Anti-Xa, Unfract 0.99 H* Sodium 138 Potassium 4.0 Chloride 106 Carbon Dioxide 25 Anion Gap 7 BUN 9 Creatinine 0.77 Est Cr Clr Drug Dosing 76.0 eGFR 81.40 BUN/Creatinine Ratio 11.7 Glucose 119 H Calcium 9.9 Iron 30 L TIBC 463 H Transferrin 331 Transferrin % Sat 6 L Ferritin 10.3 Urine Color Yellow Urine Appearance Clear Urine pH 5.5 Ur Specific [place] 1.005 Urine Protein Negative Urine Glucose (UA) Negative Urine Ketones Negative Urine Blood Negative Urine Nitrite Negative Urine Bilirubin Negative Urine Urobilinogen Negative Ur Leukocyte Esterase Negative Urine Comment 06/30/25 07:22 WBC RBC Hgb Hct MCV MCH MCHC RDW Std Deviation RDW Coeff of [place] Plt Count MPV Immature Gran % (Auto) Neut % (Auto) Lymph % (Auto) Emery % (Auto) Eos % (Auto) Baso % (Auto) Neut # (Auto) Lymph # (Auto) Emery # (Auto) Eos # (Auto) Baso # (Auto) Immature Gran # (Auto) Heparin Anti-Xa, Unfract 0.61 Sodium Potassium Chloride Carbon Dioxide Anion Gap BUN Creatinine Est Cr Clr Drug Dosing eGFR BUN/Creatinine Ratio Glucose Calcium Iron TIBC Transferrin Transferrin % Sat Ferritin Urine Color Urine Appearance Urine pH Ur Specific [place] Urine Protein Urine Glucose (UA) Urine Ketones Urine Blood Urine Nitrite Urine Bilirubin Urine Urobilinogen Ur Leukocyte Esterase Urine Comment Diagnostic Findings Venous Doppler Study 06/30/25 11:51 RIGHT LOWER EXTREMITY VENOUS DOPPLER CLINICAL HISTORY: b/l PEs, r/o DVT COMPARISON STUDY: No previous studies for comparison. TECHNIQUE: Sonography of the deep venous system of the right lower extremity was performed. Compression and augmentation were evaluated. FINDINGS: The right common femoral, superficial femoral and popliteal veins were compressible. Augmentation was normal. Flow was shown within the deep calf vessels. IMPRESSION: No evidence of deep venous thrombus within the right lower extremity. ACT 112: Negative or not required by law. Electronically signed by: Deny Sanchez M.D. 06/30/2025 2:35 PM Abdomen/Pelvis CTA 06/30/25 16:37 Clinical history: Abdominal pain Technique: Axial computed tomography images were obtained of the abdomen and pelvis before and after the administration of intravenous contrast according to the CT angiogram protocol Comparison is made to the prior CT dated 04/06/2025 Findings: There is right lower lobe pulmonary embolism The abdominal aorta appears unremarkable with no sign of aneurysm or dissection. No stenosis is seen involving it. There is a moderate severity stenosis of the proximal celiac axis with 50-16% diameter narrowing. The superior mesenteric artery is patent. The inferior mesenteric artery is patent as well. There is an apparent severe stenosis of the proximal right renal artery. There is mild plaque in the proximal left renal artery, without significant stenosis. The iliac arteries appear unremarkable with no sign of aneurysm or stenosis. The visualized common femoral arteries appear unremarkable as well The liver is overall of normal size, attenuation, and contour with no sign of cirrhosis or significant fatty infiltration. There is an unchanged 1.4 cm low-attenuation lesion in the inferior right hepatic lobe. The portal vein is patent. There is apparent mild gallbladder wall thickening. No clear gallstones are seen. No bile duct dilatation is noted. The spleen is of normal size. No focal splenic lesion is evident. The pancreas appears normal with no sign of acute or chronic pancreatitis and no mass lesion noted. The pancreatic duct is of normal caliber. The adrenal glands appear unremarkable. No definite renal or proximal ureteral calculi are seen on this contrast-enhanced study. There is no hydronephrosis or perinephric stranding. No renal mass lesion is identified. There are small bilateral renal cysts, measuring up to 8 mm No adenopathy is seen. There is a small hiatal hernia. Postsurgical changes are seen of gastric bypass surgery. There is mild soft tissue stranding and fluid around the proximal duodenum. There is no sign of small bowel obstruction. There is colonic diverticulosis without definite diverticulitis. No free intraperitoneal fluid or air is identified. There is a small umbilical hernia containing only fat No distal ureteral or bladder calculi are seen. No bladder mass lesion is evident. The uterus has been removed There is mild subsegmental atelectasis in both lower lobes. There is coronary atherosclerosis No fracture is identified. No focal osseous lesion is seen. There is lumbar degenerative disc disease. There is bilateral hip osteoarthritis Impression: 1. Right lower lobe pulmonary embolism 2. No sign of aortic aneurysm or dissection 3. 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 Right renal artery stenosis 5. No apparent stenosis of the pelvic arteries 6. Mild gallbladder wall thickening without definite cholelithiasis. Correlation with gallbladder sonography may be useful. 7. Unchanged lesion in the inferior right hepatic lobe that may represent a benign hemangioma but is indeterminate in nature 8. Suspected mild inflammatory change involving the proximal duodenum, which could be due to peptic ulcer disease or infection 9. Small bilateral renal cysts 10. Diverticulosis without definite diverticulitis 11. Umbilical hernia containing only fat ACT 112: Positive. There are findings on this exam that require communication between the performing entity and the patient following Patient Test Result Information Act ([place] ACT 112) guidelines. Electronically signed by Williams Banda 06-30-2025 7:02 PM PG Care Time/CCT Total # of Minutes Spent Total Time Spent with Patient: Total time spent is greater than 50% in coordination of care (as documented) at patient's floor/unit and/or counseling patient: Prolonged Care Time Prolonged Care Time: Yes Total Prolonged Care Time: 90 Coding Level of Care Code 60122 SUB INP/OBS CARE 3/50MIN (25 - SIGNIFICANT, SEPARATELY IDENTIFIABLE ) Diagnoses Acute pulmonary embolism I26.99 History of gastrointestinal bleeding Z87.19 Hypertension I10 Osteoarthritis M19.90 Abdominal pain R10.9 Iron deficiency anemia D50.9 History of Brett-en-Y gastric bypass Z98.84 Abnormal LFTs R79.89 Abnormal gall bladder diagnostic imaging R93.2 Lactic acidosis E87.20 Additional Codes Prolonged Care Time - Prolonged Care Time: Yes ([id number])
[2025-06-30] MEDS: IRON SUCROSE 300 MG in SODIUM CHLORIDE 0.9% 250 ML IV ONE (13:03)
--- NOTE | 2025-06-30 14:36 | Ultrasound Report ---
RIGHT LOWER EXTREMITY VENOUS DOPPLER CLINICAL HISTORY: b/l PEs, r/o DVT COMPARISON STUDY: No previous studies for comparison. TECHNIQUE: Sonography of the deep venous system of the right lower extremity was performed. Compress ion and augmentation were evaluated. FINDINGS: The right common femoral, superficial femoral and popliteal veins were compressible. Augme ntation was normal. Flow was shown within the deep calf vessels. IMPRESSION: No evidence of deep venous thrombus within the right lower extremity. ACT 112: Negative or not required by law. Electronically signed by: Deny Sanchez M.D. 06/30/2025 2:35 PM
[2025-06-30] MEDS: ONDANSETRON INJ 2 MG/ML 2 ML VIAL IV STA ×2 (16:20→17:52)
[2025-06-30] MEDS: HYDROmorphone INJ 0.5 MG/0.5 ML SYR IV STA ×2 (16:20→17:52)
[2025-06-30] MEDS: FAMOTIDINE 20MG IV PUSH 20 MG/5 ML SYR IV STA (16:40)
[2025-06-30] MEDS ORDERED: METOPROLOL TARTRATE 1 MG/ML VIAL IV PRN (17:45)
[2025-06-30 17:50] LABS: Hematocrit (blood only) 46.9 % (37.0-47.0); Hemoglobin 15.1 g/dl (12.0-16.0); Mean Corpuscular Hemoglobin 25.8 pg (25.0-34.0); Mean Corpuscular Volume 80.2 fL (80.0-100.0); Platelet Count 211 K/uL (130-400); RDW Standard Deviation 51.5 fL (36.4-46.3); Red Blood Count 5.85 M/uL (4.20-5.40); White Blood Count 4.60 K/ul (4.8-10.8)
[2025-06-30 18:09] LABS: Alanine Aminotransferase 60.0 U/L (7-52); Albumin Level 4.4 gm/dl (3.4-5.0); Alkaline Phosphatase 171.0 U/L (34-104); Bilirubin,Total 0.9 mg/dl (0.2-1.0); Lipase 66.0 U/L (11-82); Total Protein 8.0 gm/dl (6.0-8.3)
[2025-06-30] MEDS: OPTIRAY 320 125ml IV ONE (18:18)
--- NOTE | 2025-06-30 19:03 | CT Scan Report ---
Clinical history: Abdominal pain Technique: Axial computed tomography images were obtained of the abdomen and pelvis before and after the administration of intravenous contrast according to the CT angiogram protocol Comparison is made to the prior CT dated 04/06/2025 Findings: There is right lower lobe pulmonary embolism The abdominal aorta appears unremarkable with no sign of aneurysm or dissection. No stenosis is seen involving it. There is a moderate severity stenosis of the proximal celiac axis with 50-16% diameter narrowing. The superior mesenteric artery is patent. The inferior mesenteric artery is patent as well. There is an apparent severe stenosis of the proximal right renal artery. There is mild plaque in the proximal left renal artery, without significant stenosis. The iliac arteries appear unremarkable with no sign of aneurysm or stenosis. The visualized common femoral arteries appear unremarkable as well The liver is overall of normal size, attenuation, and contour with no sign of cirrhosis or significant fatty infiltration. There is an unchanged 1.4 cm low-attenuation lesion in the inferior right hepatic lobe. The portal vein is patent. There is apparent mild gallbladder wall thickening. No clear gallstones are seen. No bile duct dilatation is noted. The spleen is of normal size. No focal splenic lesion is evident. The pancreas appears normal with no sign of acute or chronic pancreatitis and no mass lesion noted. The pancreatic duct is of normal caliber. The adrenal glands appear unremarkable. No definite renal or proximal ureteral calculi are seen on this contrast-enhanced study. There is no hydronephrosis or perinephric stranding. No renal mass lesion is identified. There are small bilateral renal cysts, measuring up to 8 mm No adenopathy is seen. There is a small hiatal hernia. Postsurgical changes are seen of gastric bypass surgery. There is mild soft tissue stranding and fluid around the proximal duodenum. There is no sign of small bowel obstruction. There is colonic diverticulosis without definite diverticulitis. No free intraperitoneal fluid or air is identified. There is a small umbilical hernia containing only fat No distal ureteral or bladder calculi are seen. No bladder mass lesion is evident. The uterus has been removed There is mild subsegmental atelectasis in both lower lobes. There is coronary atherosclerosis No fracture is identified. No focal osseous lesion is seen. There is lumbar degenerative disc disease. There is bilateral hip osteoarthritis Impression: 1. Right lower lobe pulmonary embolism 2. No sign of aortic aneurysm or dissection 3. 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 Right renal artery stenosis 5. No apparent stenosis of the pelvic arteries 6. Mild gallbladder wall thickening without definite cholelithiasis. Correlation with gallbladder sonography may be useful. 7. Unchanged lesion in the inferior right hepatic lobe that may represent a benign hemangioma but is indeterminate in nature 8. Suspected mild inflammatory change involving the proximal duodenum, which could be due to peptic ulcer disease or infection 9. Small bilateral renal cysts 10. Diverticulosis without definite diverticulitis 11. Umbilical hernia containing only fat ACT 112: Positive. There are findings on this exam that require communication between the performing entity and the patient following Patient Test Result Information Act ([place] ACT 112) guidelines. Electronically signed by Williams Banda 06-30-2025 7:02 PM
[2025-06-30] MEDS ORDERED: HYDROmorphone INJ 0.5 MG/0.5 ML SYR IV PRN (19:24)
[2025-06-30] MEDS ORDERED: PROMETHAZINE 12.5 MG/50.5 ML BAG IV PRN (19:24)
[2025-06-30] MEDS: PIPERACILLIN/TAZOBACTAM 4.5 GM/100 ML BAG IV STA (19:56)
[2025-06-30] MEDS: LACTATED RINGER'S 1,000 ML IV SCH (19:56)
[2025-06-30] MEDS: ATENOLOL 25 MG TABLET PO SCH ×2 (20:04→20:14)
[2025-06-30] MEDS: PANTOprazole 40 MG/10 ML SYR IV SCH (20:14)
--- NOTE | 2025-06-30 20:58 | Surgery Consultation ---
Date of Consultation June 30, 2025 Assessment & Plan (1) Abdominal pain: At the request of the hospitalist service I evaluated the patient in room 454 with surgical recommendations are as follows: Cause of patient's abdominal pain has not yet been ascertained with certainty gallbladder etiology is in the differential. The treating hospitalist has noted the CT scan results and is ordered a right upper quadrant ultrasound for further delineation of the hepatobiliary system. If the patient's gallbladder ultrasound does not definitively ascertain this as a cause of her abdominal pain consideration will be given to performing a HIDA scan for further evaluation. If the patient is noted to have acute cholecystitis by ultrasound we will need to have further discussion with the patient about the next best step as she has been recently diagnosed with pulmonary emboli and is currently on anticoagulati on, thus the question will be whether or not the patient should undergo cholecystectomy or have a less invasive procedure such as percutaneous cholecystostomy In addition to what is noted above the patient does describe a history of GI bleed and has had a gastric bypass procedure and she is noted to have inflammation of her duodenum raising the concern for potentially ulcer disease and consideration should be given to requesting GI consultation but will defer this to the hospitalist service The patient has been back down n.p.o. which I agree with She is being hydrated intravenous fluids Antibiotics in form of Zosyn have been initiated She should be provided with analgesics She should be provided with antiemetics Serial labs should be followed Additional recommendations will be forthcoming based on her clinical course as it unfolds as well as results of pending studies Supervising Physician Co-Signing Physician Notes Patient discussed with CLAUDIA, labs and imaging reviewed, agree with above. Admitted with PEs, noted to have upper abdominal pain. CTA suggested distended gallbladder with no definitive gallstones mild gallbladder wall thickening, as well as inflammation of the duodenum in the setting of a prior Brett-en-Y gastric bypass. Afebrile, hemodynamically stable. No leukocytosis, apparently history of GI bleed from remnant stomach/biliopancreatic limb. CTA personally reviewed and interpreted and agree with the assessment of a distended gallbladder with no obvious cholelithiasis, mild gallbladder wall thickening, no obvious cholecystitis. Also with some inflammation and thickening in the duodenum. Follow-up ultrasound results, would likely recommend HIDA if concern for eve cystitis. Given her history, if there is evidence of ulceration or inflammation of the duodenum, would likely need evaluation at tertiary center. History of Present Illness Reason for Consultation: Abdominal pain Attending Physician: Marcelo Marvin MD History of Present Illness This is a 74 female who has been admitted to the hospital since 06/29/2025. The patient notes that she presented to the hospital secondary to lightheadedness as well as some shortness of breath with activity. The patient notes that she was working out and then when she went to stand up later in the day she felt somewhat dizzy/lightheadedness that she had trouble standing. She presented to the emergency department where she had labs and imaging which I was able independent reviewed. Chest x-ray showed no evidence of pneumonia. A CT scan of the head showed no evidence of hemorrhage or stroke. She had lower extremity venous Dopplers that showed no evidence of left lower extremity DVT and no evidence of right lower extremity DVT. She also underwent a CT angiogram of the chest which showed the patient had bilateral pulmonary emboli with findings concerning with associated right heart strain. The patient has subsequently been admitted to the hospital and placed on anticoagulation in the form of intravenous heparin. General surgery was asked to see the patient due to new development of abdominal pain. Patient notes that she was in the bathroom urinating earlier today and upon return to her room she developed severe epigastric and right upper quadrant pain without radiation or modifying factors. She did not have any fevers, but did have few episodes of chills. She also had multiple episodes of nausea and vomiting. Patient notes that since admission to the hospital she has had bowel movements throughout the day that are somewhat loose but she denies any blood in her stool. The patient has had multiple abdominal surgeriesthat she has had a gastric bypass (she describes a Brett-en-Y bypass) in the year 2000 done at a hospital in [place] where she was previously living. She notes that she did lose 100 pounds from the surgery. She has also had a left mastectomy secondary to breast cancer where she underwent a LASHAUN flap taken from the left side of her abdomen. In addition the patient says that she also had surgery for her pelvic floor secondary to pelvic floor relaxation. Since the development of patient's abdominal pain she has had additional labs and imaging which I independent reviewed CT angiogram of the abdomen pelvis showed the patient again was noted to have pulmonary emboli. She was noted to have no signs of aortic aneurysm or dissection and was noted to have moderate stenosis of the celiac axis as well as right renal artery stenosis. Patient was noted to have mild gallbladder wall thickening without definite cholelithiasis. She was noted to have a hemangioma in the inferior right hepatic lobe. There is also some inflammatory changes in the proximal duodenum/interpreting radio logist felt that this could be related to peptic ulcer disease or infectious process. A fat-containing umbilical hernia was also noted. Current labs from today include a CBC with a white blood cell count was 4.6. Hemoglobin and hematocrit are normal. Her platelet count is normal. Chemistry profile showed sodium and potassium as well as the BUN and creatinine were normal. Lactic acid level was checked and was noted to be 3.0. Her total bilirubin was not elevated. She had a slight elevation of her direct bilirubin of 0.3. Her AST and ALT are 153 and 160 and her alkaline phosphatase is 171, ALT slightly elevated. Her lipase is not elevated. Urinalysis was not indicative of infection. Upon further questioning the patient also reports that she has had a previous history of GI bleed. This GI bleed was noted to be in October 2024 and was ascertained via nuclear medicine study showing active bleeding in the excluded part of her stomach. When the patient did have his GI bleed she did undergo an EGD that showed a normal esophagus and showed the gastrojejunostomy anastomosis appeared healthy without signs of active bleeding. At the time of my interview the patient was resting comfortably in bed and she was no distress Allergies Allergy/AdvReac Type Severity Reaction Status Date / Time sunflower oil Allergy Severe Anaphylaxis Verified 11/19/24 11:32 /HIVES sunflower seed Allergy Severe Anaphylaxis Verified 11/19/24 11:32 /HIVES gluten Allergy Intermediate Gastrointestinal Verified 11/19/24 11:32 Upset Home Medications Medication Instructions Recorded Confirmed Type atenolol 25 mg tablet 25 mg PO DAILY 11/18/24 06/29/25 History clonidine HCl 0.1 mg tablet 0.1 mg PO BID 11/18/24 06/29/25 History escitalopram oxalate 10 mg tablet 15 mg PO DAILY 11/18/24 06/29/25 History montelukast 10 mg tablet 10 mg PO HS 11/18/24 06/29/25 History potassium chloride 10 mEq 10 meq PO DAILY 11/18/24 06/29/25 History tablet,extended release rosuvastatin 10 mg tablet 10 mg PO DAILY 11/18/24 06/29/25 History gabapentin 100 mg capsule 200 mg PO HS 06/29/25 06/29/25 History pantoprazole 40 mg tablet,delayed 40 mg PO DAILY 06/29/25 06/29/25 History release Patient History Medical History Prediabetes Symptomatic anemia GI bleed due to NSAIDs History of gastrointestinal bleeding Surgical History History of arthroscopic knee surgery History of hysterectomy with unilateral oophorectomy History of breast reconstruction History of mastectomy History of gastric bypass History of colonoscopy Social History Smoking Status: Never smoker Hx Alcohol Use: No Hx Substance Use: No Preferred Language: Nepali Communication Ability: Effective Turkish Rubber Required: No Beliefs That Will Affect Care: None Current Living Situation: Alone Feels Safe at Home: Yes Assistive Devices: Walker Review of Systems Review of Systems: All systems reviewed & are unremarkable except as noted in HPI & below Physical Exam Constitutional: WD/WN, vitals as above Eyes: no conjunctival abnormality ENMT: Ears: no hearing impairment and no external ear abnormality Mouth: no oropharynx abnormality Neck: trachea midline Respiratory: normal respiratory effort; no respiratory distress and no labored breathing Cardiovascular: Rate/Rhythm: regular rate and regular rhythm Gastrointestinal (Abdomen): Abdomen was soft without distention. There is no rigidity. Patient had no rebound tenderness or guarding but did have pain with palpation in the epigastric area and also in the right upper quadrant. Musculoskeletal: No calf tenderness Skin: no rashes Neurologic: moves all extremities Psychiatric: A+Ox3, euthymic affect Results & Data Vital Signs (Past 12 Hours) Vital Signs Temp Pulse Pulse Resp BP Pulse Ox O2 Del Method 06/30/25 19:31 36.6 C 106 H 20 152/78 H 91 Room Air 06/30/25 18:33 182/96 H 06/30/25 17:35 223/93 H 06/30/25 16:36 189/116 H 06/30/25 16:35 239/129 H 06/30/25 15:22 68 06/30/25 13:24 36.4 C L 70 17 162/90 H 94 Room Air PG Care Time/CCT Total # of Minutes Spent Total Time Spent with Patient: Total time spent is greater than 50% in coordination of care (as documented) at patient's floor/unit and/or counseling patient: Coding Level of Care Code 08936 INT INP/OBS CARE 3/75MIN Diagnoses Abdominal pain R10.9
--- NOTE | 2025-06-30 23:35 | Ultrasound Report ---
Exam(s): US GALLBLADDER EXAM: US Abdomen Limited, Right Upper Quadrant CLINICAL HISTORY: Reason for exam: abnl LFTs, severe RUQ pain, abnl GB on CT. TECHNIQUE: Real-time ultrasound of the right upper quadrant with image documentation. COMPARISON: CT abdomen and pelvis 06/30/2025 FINDINGS: Liver: Diffusely increased echogenicity in the liver. Gallbladder: Gallbladder is distended containing sludge. No stones. Borderline wall thickening. Negative Gaines sign. Common bile duct: CBD dilated up to 1 cm. No sonographically evident stone. Pancreas: Pancreas is largely obscured by shadowing bowel gas. Right kidney: Unremarkable. No hydronephrosis. IMPRESSION: 1. Gallbladder is distended containing sludge. No stones. Borderline wall thickening. Negative Gaines sign. 2. CBD dilated up to 1 cm. Electronically signed by: Jay Posadas MD 06/30/25 23:34 PM
[2025-07-01] MEDS ORDERED: ONDANSETRON INJ 2 MG/ML 2 ML VIAL IV PRN
[2025-07-01] MEDS: PIPERACILLIN/TAZOBACTAM 4.5 GM/100 ML BAG IV SCH (00:34)
[2025-07-01 07:03] LABS: Alanine Aminotransferase 327.0 U/L (7-52); Albumin Globulin Ratio 1.3 (0.9-2); Albumin Level 3.5 gm/dl (3.4-5.0); Alkaline Phosphatase 194.0 U/L (34-104); Anion Gap 10.0 (3-11); Bilirubin,Total 1.5 mg/dl (0.2-1.0); Blood Urea Nitrogen 13.0 mg/dl (6-23); Calcium 9.8 mg/dl (8.6-10.3); Carbon Dioxide 25.0 mmol/L (21-32); Chloride 106.0 mmol/L (98-107); Creatinine Clr Calc Pharmacy 55.7 ml/min; Globulin 2.8 gm/dl (2.5-4.0); Glucose 163.0 mg/dl (70-99(Fasting)); Lipase 63.0 U/L (11-82); Magnesium 1.8 mg/dl (1.7-2.4); Potassium 3.8 mmol/L (3.5-5.1); Sodium 141.0 mmol/L (136-145); Total Protein 6.3 gm/dl (6.0-8.3)
[2025-07-01 07:30] LABS: Hematocrit (blood only) 36.9 % (37.0-47.0); Hemoglobin 12.2 g/dl (12.0-16.0); Immature Granulocytes # (auto) 0.05 K/uL (0.01-0.20); Immature Granulocytes % (auto) 0.5 %; Mean Corpuscular Hemoglobin 26.2 pg (25.0-34.0); Mean Corpuscular Volume 79.2 fL (80.0-100.0); Platelet Count 192 K/uL (130-400); RDW Standard Deviation 50.6 fL (36.4-46.3); Red Blood Count 4.66 M/uL (4.20-5.40); White Blood Count 10.82 K/ul (4.8-10.8)
[2025-07-01 07:56] LABS: ANTI-Xa, UFH(UnfractionatedHep 0.82 IU/ml (0.3-0.7)
[2025-07-01 08:00] LABS: Folate (Folic Acid),Ser orPlas > 22.30 ng/ml (>5.38)
[2025-07-01 08:01] LABS: Vitamin B12 890 pg/ml (180-914)
--- NOTE | 2025-07-01 11:43 | Nuclear Medicine Report ---
NUCLEAR HEPATOBILIARY SCAN CLINICAL HISTORY: Right upper quadrant abdominal pain. COMPARISON STUDY: Abdominal CT and ultrasound dated 06/30/2025. TECHNIQUE: Dynamic images of the liver and anterior abdomen were obtained every 5 minutes for a total of 60 minutes following the IV administration of 5.3 mCi of technetium 99m Mebrofenin. FINDINGS: The hepatobiliary scan shows prompt and homogeneous hepatic uptake. There is visualized act ivity within the intra and extrahepatic biliary tree at 10 minutes. There is normal biliary to bowel transit, with small bowel visualized by 30 minutes. There is a large photopenic defect from the dist ended gallbladder. The swallowing of tracer is seen within the gallbladder lumen beginning at 30 nava parviz. The gallbladder does not completely fill. IMPRESSION: 1. There is a large photopenic defect from the distended gallbladder. 2. A small amount of tracer does enter the gallbladder at 30 minutes indicating that there is no comp lete cystic duct obstruction. 3. Although this does not meet scintigraphic criteria for acute cholecystitis, the gallbladder still appears abnormal by both CT and ultrasound and does not show typical filling on this examination. Kraig e of this may be related to the degree of distention. Chronic cholecystitis or pancreaticoduodenal pa thology is not excluded. Clinical and laboratory correlation will be essential. ACT 112: Negative or not required by law. Electronically signed by: Cj Gore M.D. 07/01/2025 11:42 AM
--- NOTE | 2025-07-01 12:19 | Electrocardiogram Report ---
Test Reason : Blood Pressure : */* mmHG Vent. Rate : 63 BPM Atrial Rate : 63 BPM P-R Int : 204 ms QRS Dur : 102 ms QT Int : 452 ms P-R-T Axes : * -22 -1 degrees QTcB Int : 462 ms Sinus rhythm with sinus arrhythmia with occasional Premature ventricular complexes Incomplete right bundle branch block Minimal voltage criteria for LVH, may be normal variant ( R in aVL ) Cannot rule out Anterior infarct (cited on or before 07-Dec-2024) Abnormal ECG When compared with ECG of 29-Jun-2025 09:18, Previous ECG has undetermined rhythm, needs review Criteria for Inferior infarct are no longer Present ST now depressed in Lateral leads Confirmed by Kel Artis ([id number]) on 07/01/2025 12:18:54 PM Referred By: REFERRED SELF Confirmed By: Kel Artis
--- NOTE | 2025-07-01 13:44 | Magnetic Resonance Report ---
MR MRCP HISTORY: 74 years-old Female elevated LFTs, gb sludge acutely elevated LFTs COMPARISON: Doppler ultrasound and CT abdomen and pelvis 06/30/2025 TECHNIQUE: MRCP was obtained without IV contrast utilizing institutional protocol. FINDINGS: Study is motion degraded. Right lower lobe pulmonary emboli redemonstrated. Unremarkable spleen, adre nal glands and liver. No abdominal aortic aneurysm. Probable small cyst of the superior pole left kid nicole. No hydronephrosis. No lymphadenopathy. Small hiatal hernia with postoperative changes of prior R oux-en-Y gastric bypass. No bowel obstruction or bowel wall thickening. Unremarkable soft tissues and osseous structures. Distended gallbladder with borderline wall thickening again noted. No definite cholelithiasis. The co mmon bile duct measures up to 10 mm. No choledocholithiasis. Trace edema along the pancreaticoduodena l groove adjacent to the uncinate process and proximal duodenum again noted. These findings have impr stephanie from yesterday's study. There are a few cystic foci of the pancreas measuring up to 5 mm suggest luis of sidebranch IPMN's. IMPRESSION: 1. Motion degraded exam. 2. Distended gallbladder with borderline gallbladder wall thickening redemonstrated, possibly slightl y improved from yesterday's exam. 3. Unchanged mild dilation of the common bile duct measuring up to 1 cm without obstructing lesion or stone identified. 4. Possible mild acute pancreatitis without pancreatic ductal dilation. Correlate with serum lipase 5. 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 6. Right lower lobe pulmonary emboli redemonstrated. ACT 112: Negative or not required by law. The above report was generated using voice recognition software. It may contain grammatical, syntax o r spelling errors. Electronically signed by: Lonnie Pennington M.D. 07/01/2025 1:43 PM
[2025-07-01 16:00] LABS: ANTI-Xa, UFH(UnfractionatedHep 0.53 IU/ml (0.3-0.7)
--- NOTE | 2025-07-01 16:05 | Surgery Progress Note ---
Date of Service July 01, 2025 Assessment & Plan (1) Abnormal gall bladder diagnostic imaging: Plan: She may have chronic cholecystitis versus distention from recurrent medical conditions. At this point she is pain-free. She would need to stop anticoagulation prior to any surgical intervention, and it seems better that she would receive anticoagulation for her PEs at this point. Did discuss with IR, and given that her symptoms have resolved today would hold off on placing a PERC cholecystostomy tube. If her symptoms worsens or recurred and it was evident that this was cholecystitis, would recommend PERC cholecystostomy tube while she still in the anticoagulation window. No surgical intervention indicated at this time. Advance diet as tolerated Surgery will sign off, call for questions or concerns (2) Duodenitis: Plan: Duodenal thickening concerning for duodenitis on her imaging in the setting of a prior Brett-en-Y gastric bypass and a prior remnant GI bleed. At this point there is no significant bleeding and no perforation. She is to continue on a PPI. If there are any other issues, may need referral to a tertiary center for possible push endoscopy or rendezvous endoscopy. (3) History of Brett-en-Y gastric bypass: (4) Abnormal LFTs: (5) Acute pulmonary embolism: (6) Hypertension: (7) Obesity: Admission and Anticipated Discharge Date Admission Date: June 29, 2025 Subjective Patient admitted with bilateral PEs currently on therapeutic anticoagulation. Overnight she developed significant epigastric abdominal pain and retching. CTA showed possible cholecystitis, ultrasound showed dilated gallbladder with mildly thickened gallbladder wall with no stones concerning for possible acute cholecystitis. HIDA scan was ordered today and showed delayed filling of the gallbladder which was abnormal but not completely obstructed, may represent chronic cholecystitis or resolving cholecystitis. MRCP was ordered today because her LFTs were elevated, no evidence of biliary obstruction. She is currently pain-free and does not have any nausea. She is not sure what happened last night but it was pretty severe. She was a little sore this morning but now her symptoms have completely resolved. Physical Exam Constitutional: WD/WN, vitals as above + obese Respiratory: normal respiratory effort, lungs clear to auscultation Cardiovascular: RRR, no murmur, no edema Gastrointestinal (Abdomen): normal bowel sounds, soft, nontender, no hepatosplenomegaly Inspection/Auscultation: + abdominal surgical scar Results & Data Vital Signs (Past 12 Hours) Vital Signs Temp Pulse Pulse Resp BP Pulse Ox O2 Del Method 07/01/25 15:09 36.8 C 56 L 19 135/79 95 Room Air 07/01/25 07:23 36.7 C 59 L 19 97/62 L 90 Room Air 07/01/25 07:23 47 L Laboratory Results Laboratory Results - last 24 hr 06/30/25 07/01/25 07/01/25 17:30 05:13 15:26 WBC 4.60 L 10.82 H RBC 5.85 H 4.66 Hgb 15.1 12.2 D Hct 46.9 36.9 L MCV 80.2 79.2 L MCH 25.8 26.2 MCHC 32.2 33.1 RDW Std Deviation 51.5 H 50.6 H RDW Coeff of [place] 18.4 H 17.8 H Plt Count 211 192 MPV 10.1 10.3 Immature Gran % (Auto) 0.5 Neut % (Auto) 88.5 Lymph % (Auto) 5.3 [place] % (Auto) 5.4 Eos % (Auto) 0.1 Baso % (Auto) 0.2 Neut # (Auto) 9.59 H Lymph # (Auto) 0.57 L [place] # (Auto) 0.58 Eos # (Auto) 0.01 Baso # (Auto) 0.02 Immature Gran # (Auto) 0.05 Heparin Anti-Xa, Unfract 0.82 H* 0.53 Sodium 141 Potassium 3.8 Chloride 106 Carbon Dioxide 25 Anion Gap 10 BUN 13 Creatinine 1.06 Est Cr Clr Drug Dosing 55.7 eGFR 55.47 BUN/Creatinine Ratio 12.3 Glucose 163 H Lactate 3.0 H* Calcium 9.8 Magnesium 1.8 Total Bilirubin 0.9 1.5 H D Direct Bilirubin 0.3 H AST 153 H 529 H ALT 60 H 327 H Alkaline Phosphatase 171 H D 194 H Troponin I High Sens 6.3 Total Protein 8.0 6.3 D Albumin 4.4 3.5 Globulin 2.8 Albumin/Globulin Ratio 1.3 Lipase 66 63 Vitamin B12 890 Folate > 22.[address], ultrasound, MRCP, and HIDA scan personally viewed and interpreted and agree with the assessments. Dilated gallbladder with mild gallbladder wall thickening but no significant Yemi cholecystic fluid, mild dilation of the common bile duct to 1 cm, no choledocholithiasis present, HIDA with delayed filling but no evidence of acute obstruction or cholecystitis. Abdomen/Pelvis CTA 06/30/25 16:37 Clinical history: Abdominal pain Technique: Axial computed tomography images were obtained of the abdomen and pelvis before and after the administration of intravenous contrast according to the CT angiogram protocol Comparison is made to the prior CT dated 04/06/2025 Findings: There is right lower lobe pulmonary embolism The abdominal aorta appears unremarkable with no sign of aneurysm or dissection. No stenosis is seen involving it. There is a moderate severity stenosis of the proximal celiac axis with 50-16% diameter narrowing. The superior mesenteric artery is patent. The inferior mesenteric artery is patent as well. There is an apparent severe stenosis of the proximal right renal artery. There is mild plaque in the proximal left renal artery, without significant stenosis. The iliac arteries appear unremarkable with no sign of aneurysm or stenosis. The visualized common femoral arteries appear unremarkable as well The liver is overall of normal size, attenuation, and contour with no sign of cirrhosis or significant fatty infiltration. There is an unchanged 1.4 cm low-attenuation lesion in the inferior right hepatic lobe. The portal vein is patent. There is apparent mild gallbladder wall thickening. No clear gallstones are seen. No bile duct dilatation is noted. The spleen is of normal size. No focal splenic lesion is evident. The pancreas appears normal with no sign of acute or chronic pancreatitis and no mass lesion noted. The pancreatic duct is of normal caliber. The adrenal glands appear unremarkable. No definite renal or proximal ureteral calculi are seen on this contrast-enhanced study. There is no hydronephrosis or perinephric stranding. No renal mass lesion is identified. There are small bilateral renal cysts, measuring up to 8 mm No adenopathy is seen. There is a small hiatal hernia. Postsurgical changes are seen of gastric bypass surgery. There is mild soft tissue stranding and fluid around the proximal duodenum. There is no sign of small bowel obstruction. There is colonic diverticulosis without definite diverticulitis. No free intraperitoneal fluid or air is identified. There is a small umbilical hernia containing only fat No distal ureteral or bladder calculi are seen. No bladder mass lesion is evident. The uterus has been removed There is mild subsegmental atelectasis in both lower lobes. There is coronary atherosclerosis No fracture is identified. No focal osseous lesion is seen. There is lumbar degenerative disc disease. There is bilateral hip osteoarthritis Impression: 1. Right lower lobe pulmonary embolism 2. No sign of aortic aneurysm or dissection 3. 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 Right renal artery stenosis 5. No apparent stenosis of the pelvic arteries 6. Mild gallbladder wall thickening without definite cholelithiasis. Correlation with gallbladder sonography may be useful. 7. Unchanged lesion in the inferior right hepatic lobe that may represent a benign hemangioma but is indeterminate in nature 8. Suspected mild inflammatory change involving the proximal duodenum, which could be due to peptic ulcer disease or infection 9. Small bilateral renal cysts 10. Diverticulosis without definite diverticulitis 11. Umbilical hernia containing only fat ACT 112: Positive. There are findings on this exam that require communication between the performing entity and the patient following Patient Test Result Information Act ([place] ACT 112) guidelines. Electronically signed by Williams Banda 06-30-2025 7:02 PM Gallbladder Ultrasound 06/30/25 19:24 Exam(s): US GALLBLADDER EXAM: US Abdomen Limited, Right Upper Quadrant CLINICAL HISTORY: Reason for exam: abnl LFTs, severe RUQ pain, abnl GB on CT. TECHNIQUE: Real-time ultrasound of the right upper quadrant with image documentation. COMPARISON: CT abdomen and pelvis 06/30/2025 FINDINGS: Liver: Diffusely increased echogenicity in the liver. Gallbladder: Gallbladder is distended containing sludge. No stones. Borderline wall thickening. Negative Gaines sign. Common bile duct: CBD dilated up to 1 cm. No sonographically evident stone. Pancreas: Pancreas is largely obscured by shadowing bowel gas. Right kidney: Unremarkable. No hydronephrosis. IMPRESSION: 1. Gallbladder is distended containing sludge. No stones. Borderline wall thickening. Negative Gaines sign. 2. CBD dilated up to 1 cm. Electronically signed by: Jay Posadas MD 06/30/25 23:34 PM Cholangiopancreatography MRI 07/01/25 07:36 MR MRCP HISTORY: 74 years-old Female elevated LFTs, gb sludge acutely elevated LFTs COMPARISON: Doppler ultrasound and CT abdomen and pelvis 06/30/2025 TECHNIQUE: MRCP was obtained without IV contrast utilizing institutional protocol. FINDINGS: Study is motion degraded. Right lower lobe pulmonary emboli redemonstrated. Unremarkable spleen, adrenal glands and liver. No abdominal aortic aneurysm. Probable small cyst of the superior pole left kidney. No hydronephrosis. No lymphadenopathy. Small hiatal hernia with postoperative changes of prior Brett-en-Y gastric bypass. No bowel obstruction or bowel wall thickening. Unremarkable soft tissues and osseous structures. Distended gallbladder with borderline wall thickening again noted. No definite cholelithiasis. The common bile duct measures up to 10 mm. No choledocholithiasis. Trace edema along the pancreaticoduodenal groove adjacent to the uncinate process and proximal duodenum again noted. These findings have improved from yesterday's study. There are a few cystic foci of the pancreas measuring up to 5 mm suggestive of sidebranch IPMN's. IMPRESSION: 1. Motion degraded exam. 2. Distended gallbladder with borderline gallbladder wall thickening redemonstrated, possibly slightly improved from yesterday's exam. 3. Unchanged mild dilation of the common bile duct measuring up to 1 cm without obstructing lesion or stone identified. 4. Possible mild acute pancreatitis without pancreatic ductal dilation. Correlate with serum lipase 5. 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 6. Right lower lobe pulmonary emboli redemonstrated. ACT 112: Negative or not required by law. The above report was generated using voice recognition software. It may contain grammatical, syntax or spelling errors. Electronically signed by: Lonnie Pennington M.D. 07/01/2025 1:43 PM Hepatobiliary Scan Nuclear Medicine 07/01/25 10:00 NUCLEAR HEPATOBILIARY SCAN CLINICAL HISTORY: Right upper quadrant abdominal pain. COMPARISON STUDY: Abdominal CT and ultrasound dated 06/30/2025. TECHNIQUE: Dynamic images of the liver and anterior abdomen were obtained every 5 minutes for a total of 60 minutes following the IV administration of 5.3 mCi of technetium 99m Mebrofenin. FINDINGS: The hepatobiliary scan shows prompt and homogeneous hepatic uptake. There is visualized activity within the intra and extrahepatic biliary tree at 10 minutes. There is normal biliary to bowel transit, with small bowel visualized by 30 minutes. There is a large photopenic defect from the distended gallbladder. The swallowing of tracer is seen within the gallbladder lumen beginning at 30 minutes. The gallbladder does not completely fill. IMPRESSION: 1. There is a large photopenic defect from the distended gallbladder. 2. A small amount of tracer does enter the gallbladder at 30 minutes indicating that there is no complete cystic duct obstruction. 3. Although this does not meet scintigraphic criteria for acute cholecystitis, the gallbladder still appears abnormal by both CT and ultrasound and does not show typical filling on this examination. Some of this may be related to the degree of distention. Chronic cholecystitis or pancreaticoduodenal pathology is not excluded. Clinical and laboratory correlation will be essential. ACT 112: Negative or not required by law. Electronically signed by: Cj Gore M.D. 07/01/2025 11:42 AM PG Care Time/CCT Total # of Minutes Spent Total Time Spent with Patient: Total time spent is greater than 50% in coordination of care (as documented) at patient's floor/unit and/or counseling patient: Coding Level of Care Code 47500 SUB INP/OBS CARE 2/35MIN Diagnoses Abnormal gall bladder diagnostic imaging R93.2 Duodenitis K29.80 History of Brett-en-Y gastric bypass Z98.84 Abnormal LFTs R79.89 Acute pulmonary embolism I26.99 Acute cor pulmonale presence: unspecified Pulmonary embolism type: unspecified Hypertension I10 Obesity E66.9 (5) Acute pulmonary embolism Acute cor pulmonale presence: unspecified Pulmonary embolism type: unspecified Qualified Code(s): I26.99 - Other pulmonary embolism without acute cor pulmonale
--- NOTE | 2025-07-01 18:56 | Hospitalist Progress Note ---
Date of Service July 01, 2025 Assessment & Plan (1) Abnormal gall bladder diagnostic imaging: (2) Abnormal LFTs: (3) Acute pulmonary embolism: (4) History of gastrointestinal bleeding: (5) Hypertension: (6) Osteoarthritis: (7) Abdominal pain: (8) Iron deficiency anemia: (9) History of Brett-en-Y gastric bypass: (10) Lactic acidosis: Plan 74yo female presented to the ER with dizziness with minimal shortness of breath. D-dimer elevated at ER presentation which led to CTA chest showing numerous b/l PEs. 06/30 afternoon developed SEVERE upper abd pain with N/V and acute abnormal LFTs. CT imaging with GB wall thickening. #abnormal LFTs, abnormal gall bladder on multiple imaging modalities - -06/30 abdominal pain episode was quite severe -LFTs lynn, CT a/p & RUQ u/s with findings suspicious for gall bladder etiology for her acute pain -gen surg consulted, IV fluids started, IV zosyn initiated, NPO status started -HIDA scan abnormal today; MRCP without CBD obstruction but CBD is dilated at 11mm and gall bladder again abnormal -fortunately with NPO status, IVF, IV zosyn, etc her pain/nausea/emesis is resolved and she feels better today -in the ideal world she would undergo cholecystectomy as all studies suggest biliary tract cause for the last 24 hours -however, with fresh PEs with considerable clot burden taking her off anticoagulation for lap eve confers high risk -discussed this in detail with gen surg today -plan: -will Rx with IV zosyn with the hopes that if she does indeed have cholecystitis she improves with conservative Rx alone -resume a diet today -if she fails to improve, or her symptoms recur/worsen, then will pursue IR cholecystostomy tube placement -discussed this in detail with patient as well as her daughter by telephone -repeat LFTs in am -repeat CBC in am -appreciate gen surg assistance #abnormal duodenum on CT - -?PUD of the duodenum? -?duodenitis? -pancreatitis causing duodenal abnormalities? (?pancreatitis on MRCP, but lipase yesterday and today wnl) -cont IV PPI twice daily -follow clinically and low threshold for GI consultation if pain recurs -fortunately no signs of GI bleeding; H/H stable #Acute b/l pulmonary emboli - -Unprovoked - no recent surgery, prolonged travel, prolonged immobility, etc. -no famHx of VTE -currently on IV heparin standard dosing -due to gastric bypass status DOAC absorbability is reduced -looking at guidelines from Up-to-Date and after [place] correspondence with our Coumadin clinic a lovenox bridge to coumadin is likely our safest bet for outpatient Rx -b/l LE venous duplex studies negative for DVT -echo with normal LV/RV function -with her persistent Fe deficiency anemia - GI malignancy? other? -will need colonoscopy, etc (due for such in 2025 anyway) -h/o breast ca, but CT chest/abd/pelvis without signs of recurrence -due to uncertainty of what she needs for the gall bladder will leave on heparin drip; defer on lovenox/coumadin at this time (initiate such later in the stay) #severe upper abd pain - -resolved -see above #Hypertension - -developed relative hypotension in the setting of her acute abd pain yesterday -thus, placed clonidine and atenolol on hold #Osteoarthritis - -cont gabapentin #History of gastrointestinal bleed - 10/2024 - -EGD at that time did not isolate a source but presumed UGI in origin -has been taking PPI once daily at home -duodenum with ?inflammation on CTA a/p this admit -see discussion above -cont IV PPI twice daily -serial H/H's -consider GI consultation if any drop in H/H, recurrent abd pain, etc. #Depression/anxiety - -Continue Lexpro #Fe deficiency anemia - -with gastric bypass status she will not absorb PO iron -gave venover 300mg IV x 1 on 06/30 -will likely need additional runs in the future -checked B12/folate - both wnl -with ongoing Fe def chronically does she have an underlying GI tract malignancy that could have set her up for the VTE event?? #Dizziness - -orthostatic BPs negative -no vertigo -etiology uncertain -echo wnl -due to PEs??? but again BPs stable, not tachycardic, etc. -symptoms resolved -monitor for recurrence VTE Prophylaxis - IV heparin updated pt's daughter extensively by phone this evening, 07/01 questions answered discussed events of last 24 hours PT, OT Admission and Anticipated Discharge Date Admission Date: June 29, 2025 Subjective tele overnight wnl she did have tachycardia yesterday afternoon/early evening, rates up to the 150s ?PAF with RVR? patient denies any abd pain or N/V today overall feels better denies dizziness denies lightheadedness denies dyspnea at rest or ZAYAS Review of Systems Review of Systems: gen - no fevers or chills cv - no chest pain pulm - no cough or dyspnea Physical Exam Physical Exam: gen - lying comfortably in bed, NAD, pleasant; looks better today mouth - MMM neck - no JVD heart - RRR, s1 s2, no murmur lungs - CTA b/l abd - soft NT ND BS+; no HSM ext - no edema, pulses 2+ b/l feet psych - a/o x 3 Results & Data Results & Data Vital Signs (Past 12 Hours) Vital Signs Temp Pulse Pulse Resp BP Pulse Ox O2 Del Method 07/01/25 16:13 58 L 07/01/25 15:09 36.8 C 56 L 19 135/79 95 Room Air 07/01/25 07:23 36.7 C 59 L 19 97/62 L 90 Room Air 07/01/25 07:23 47 L Laboratory Results Laboratory Results - last 48 hr 06/30/25 06/30/25 06/30/25 07:16 07:22 17:30 WBC 4.18 L 4.60 L RBC 4.84 5.85 H Hgb 12.4 15.1 Hct 38.6 46.9 MCV 79.8 L 80.2 MCH 25.6 25.8 MCHC 32.1 32.2 RDW Std Deviation 50.4 H 51.5 H RDW Coeff of Farooq 17.5 H 18.4 H Plt Count 212 211 MPV 10.0 10.1 Immature Gran % (Auto) 0.5 Neut % (Auto) 58.4 Lymph % (Auto) 24.6 Sutton % (Auto) 11.2 Eos % (Auto) 4.8 Baso % (Auto) 0.5 Neut # (Auto) 2.44 Lymph # (Auto) 1.03 L Sutton # (Auto) 0.47 Eos # (Auto) 0.20 Baso # (Auto) 0.02 Immature Gran # (Auto) 0.02 Heparin Anti-Xa, Unfract 0.61 Sodium 138 Potassium 4.0 Chloride 106 Carbon Dioxide 25 Anion Gap 7 BUN 9 Creatinine 0.77 Est Cr Clr Drug Dosing 76.0 eGFR 81.40 BUN/Creatinine Ratio 11.7 Glucose 119 H Lactate 3.0 H* Calcium 9.9 Magnesium Iron 30 L TIBC 463 H Transferrin 331 Transferrin % Sat 6 L Ferritin 10.3 Total Bilirubin 0.9 Direct Bilirubin 0.3 H AST 153 H ALT 60 H Alkaline Phosphatase 171 H D Troponin I High Sens 6.3 Total Protein 8.0 Albumin 4.4 Globulin Albumin/Globulin Ratio Lipase 66 Vitamin B12 Folate 07/01/25 05:13 WBC 10.82 H RBC 4.66 Hgb 12.2 D Hct 36.9 L MCV 79.2 L MCH 26.2 MCHC 33.1 RDW Std Deviation 50.6 H RDW Coeff of Farooq 17.8 H Plt Count 192 MPV 10.3 Immature Gran % (Auto) 0.5 Neut % (Auto) 88.5 Lymph % (Auto) 5.3 Sutton % (Auto) 5.4 Eos % (Auto) 0.1 Baso % (Auto) 0.2 Neut # (Auto) 9.59 H Lymph # (Auto) 0.57 L Sutton # (Auto) 0.58 Eos # (Auto) 0.01 Baso # (Auto) 0.02 Immature Gran # (Auto) 0.05 Heparin Anti-Xa, Unfract 0.82 H* Sodium 141 Potassium 3.8 Chloride 106 Carbon Dioxide 25 Anion Gap 10 BUN 13 Creatinine 1.06 Est Cr Clr Drug Dosing 55.7 eGFR 55.47 BUN/Creatinine Ratio 12.3 Glucose 163 H Lactate Calcium 9.8 Magnesium 1.8 Iron TIBC Transferrin Transferrin % Sat Ferritin Total Bilirubin 1.5 H D Direct Bilirubin AST 529 H ALT 327 H Alkaline Phosphatase 194 H Troponin I High Sens Total Protein 6.3 D Albumin 3.5 Globulin 2.8 Albumin/Globulin Ratio 1.3 Lipase 63 Vitamin B12 890 Folate > 22.30 Diagnostic Findings Venous Doppler Study 06/30/25 11:51 RIGHT LOWER EXTREMITY VENOUS DOPPLER CLINICAL HISTORY: b/l PEs, r/o DVT COMPARISON STUDY: No previous studies for comparison. TECHNIQUE: Sonography of the deep venous system of the right lower extremity was performed. Compression and augmentation were evaluated. FINDINGS: The right common femoral, superficial femoral and popliteal veins were compressible. Augmentation was normal. Flow was shown within the deep calf vessels. IMPRESSION: No evidence of deep venous thrombus within the right lower extremity. ACT 112: Negative or not required by law. Electronically signed by: Deny Sanchez M.D. 06/30/2025 2:35 PM Abdomen/Pelvis CTA 06/30/25 16:37 Clinical history: Abdominal pain Technique: Axial computed tomography images were obtained of the abdomen and pelvis before and after the administration of intravenous contrast according to the CT angiogram protocol Comparison is made to the prior CT dated 04/06/2025 Findings: There is right lower lobe pulmonary embolism The abdominal aorta appears unremarkable with no sign of aneurysm or dissection. No stenosis is seen involving it. There is a moderate severity stenosis of the proximal celiac axis with 50-16% diameter narrowing. The superior mesenteric artery is patent. The inferior mesenteric artery is patent as well. There is an apparent severe stenosis of the proximal right renal artery. There is mild plaque in the proximal left renal artery, without significant stenosis. The iliac arteries appear unremarkable with no sign of aneurysm or stenosis. The visualized common femoral arteries appear unremarkable as well The liver is overall of normal size, attenuation, and contour with no sign of cirrhosis or significant fatty infiltration. There is an unchanged 1.4 cm low-attenuation lesion in the inferior right hepatic lobe. The portal vein is patent. There is apparent mild gallbladder wall thickening. No clear gallstones are seen. No bile duct dilatation is noted. The spleen is of normal size. No focal splenic lesion is evident. The pancreas appears normal with no sign of acute or chronic pancreatitis and no mass lesion noted. The pancreatic duct is of normal caliber. The adrenal glands appear unremarkable. No definite renal or proximal ureteral calculi are seen on this contrast-enhanced study. There is no hydronephrosis or perinephric stranding. No renal mass lesion is identified. There are small bilateral renal cysts, measuring up to 8 mm No adenopathy is seen. There is a small hiatal hernia. Postsurgical changes are seen of gastric bypass surgery. There is mild soft tissue stranding and fluid around the proximal duodenum. There is no sign of small bowel obstruction. There is colonic diverticulosis without definite diverticulitis. No free intraperitoneal fluid or air is identified. There is a small umbilical hernia containing only fat No distal ureteral or bladder calculi are seen. No bladder mass lesion is evident. The uterus has been removed There is mild subsegmental atelectasis in both lower lobes. There is coronary atherosclerosis No fracture is identified. No focal osseous lesion is seen. There is lumbar degenerative disc disease. There is bilateral hip osteoarthritis Impression: 1. Right lower lobe pulmonary embolism 2. No sign of aortic aneurysm or dissection 3. 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 Right renal artery stenosis 5. No apparent stenosis of the pelvic arteries 6. Mild gallbladder wall thickening without definite cholelithiasis. Correlation with gallbladder sonography may be useful. 7. Unchanged lesion in the inferior right hepatic lobe that may represent a benign hemangioma but is indeterminate in nature 8. Suspected mild inflammatory change involving the proximal duodenum, which could be due to peptic ulcer disease or infection 9. Small bilateral renal cysts 10. Diverticulosis without definite diverticulitis 11. Umbilical hernia containing only fat ACT 112: Positive. There are findings on this exam that require communication between the performing entity and the patient following Patient Test Result Information Act ([place] ACT 112) guidelines. Electronically signed by Williams Banda 06-30-2025 7:02 PM Gallbladder Ultrasound 06/30/25 19:24 Exam(s): US GALLBLADDER EXAM: US Abdomen Limited, Right Upper Quadrant CLINICAL HISTORY: Reason for exam: abnl LFTs, severe RUQ pain, abnl GB on CT. TECHNIQUE: Real-time ultrasound of the right upper quadrant with image documentation. COMPARISON: CT abdomen and pelvis 06/30/2025 FINDINGS: Liver: Diffusely increased echogenicity in the liver. Gallbladder: Gallbladder is distended containing sludge. No stones. Borderline wall thickening. Negative Gaines sign. Common bile duct: CBD dilated up to 1 cm. No sonographically evident stone. Pancreas: Pancreas is largely obscured by shadowing bowel gas. Right kidney: Unremarkable. No hydronephrosis. IMPRESSION: 1. Gallbladder is distended containing sludge. No stones. Borderline wall thickening. Negative Gaines sign. 2. CBD dilated up to 1 cm. Electronically signed by: Jay Posadas MD 06/30/25 23:34 PM Cholangiopancreatography MRI 07/01/25 07:36 MR MRCP HISTORY: 74 years-old Female elevated LFTs, gb sludge acutely elevated LFTs COMPARISON: Doppler ultrasound and CT abdomen and pelvis 06/30/2025 TECHNIQUE: MRCP was obtained without IV contrast utilizing institutional protocol. FINDINGS: Study is motion degraded. Right lower lobe pulmonary emboli redemonstrated. Unremarkable spleen, adrenal glands and liver. No abdominal aortic aneurysm. Pro bable small cyst of the superior pole left kidney. No hydronephrosis. No lymphadenopathy. Small hiatal hernia with postoperative changes of prior Brett-en-Y gastric bypass. No bowel obstruction or bowel wall thickening. Unremarkable soft tissues and osseous structures. Distended gallbladder with borderline wall thickening again noted. No definite cholelithiasis. The common bile duct measures up to 10 mm. No choledocholithiasis. Trace edema along the pancreaticoduodenal groove adjacent to the uncinate process and proximal duodenum again noted. These findings have improved from yesterday's study. There are a few cystic foci of the pancreas measuring up to 5 mm suggestive of sidebranch IPMN's. IMPRESSION: 1. Motion degraded exam. 2. Distended gallbladder with borderline gallbladder wall thickening redemonstrated, possibly slightly improved from yesterday's exam. 3. Unchanged mild dilation of the common bile duct measuring up to 1 cm without obstructing lesion or stone identified. 4. Possible mild acute pancreatitis without pancreatic ductal dilation. Correlate with serum lipase 5. 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 6. Right lower lobe pulmonary emboli redemonstrated. ACT 112: Negative or not required by law. The above report was generated using voice recognition software. It may contain grammatical, syntax or spelling errors. Electronically signed by: Lonnie Pennington M.D. 07/01/2025 1:43 PM Hepatobiliary Scan Nuclear Medicine 07/01/25 10:00 NUCLEAR HEPATOBILIARY SCAN CLINICAL HISTORY: Right upper quadrant abdominal pain. COMPARISON STUDY: Abdominal CT and ultrasound dated 06/30/2025. TECHNIQUE: Dynamic images of the liver and anterior abdomen were obtained every 5 minutes for a total of 60 minutes following the IV administration of 5.3 mCi of technetium 99m Mebrofenin. FINDINGS: The hepatobiliary scan shows prompt and homogeneous hepatic uptake. There is visualized activity within the intra and extrahepatic biliary tree at 10 minutes. There is normal biliary to bowel transit, with small bowel visualized by 30 minutes. There is a large photopenic defect from the distended gallbladder. The swallowing of tracer is seen within the gallbladder lumen beginning at 30 minutes. The gallbladder does not completely fill. IMPRESSION: 1. There is a large photopenic defect from the distended gallbladder. 2. A small amount of tracer does enter the gallbladder at 30 minutes indicating that there is no complete cystic duct obstruction. 3. Although this does not meet scintigraphic criteria for acute cholecystitis, the gallbladder still appears abnormal by both CT and ultrasound and does not show typical filling on this examination. Some of this may be related to the degree of distention. Chronic cholecystitis or pancreaticoduodenal pathology is not excluded. Clinical and laboratory correlation will be essential. ACT 112: Negative or not required by law. Electronically signed by: Cj Gore M.D. 07/01/2025 11:42 AM PG Care Time/CCT Total # of Minutes Spent Total Time Spent with Patient: Total time spent is greater than 50% in coordination of care (as documented) at patient's floor/unit and/or counseling patient: Coding Level of Care Code 92714 SUB INP/OBS CARE 3/50MIN Diagnoses Abnormal gall bladder diagnostic imaging R93.2 Abnormal LFTs R79.89 Acute pulmonary embolism I26.99 Acute cor pulmonale presence: unspecified Pulmonary embolism type: unspecified History of gastrointestinal bleeding Z87.19 Hypertension I10 Osteoarthritis M19.90 Abdominal pain R10.9 Iron deficiency anemia D50.9 History of Brett-en-Y gastric bypass Z98.84 Lactic acidosis E87.20 (3) Acute pulmonary embolism Acute cor pulmonale presence: unspecified Pulmonary embolism type: unspecified Qualified Code(s): I26.99 - Other pulmonary embolism without acute cor pulmonale
[2025-07-02 05:47] LABS: Hematocrit (blood only) 35.6 % (37.0-47.0); Hemoglobin 11.6 g/dl (12.0-16.0); Mean Corpuscular Hemoglobin 25.8 pg (25.0-34.0); Mean Corpuscular Volume 79.3 fL (80.0-100.0); Platelet Count 153 K/uL (130-400); RDW Standard Deviation 51.6 fL (36.4-46.3); Red Blood Count 4.49 M/uL (4.20-5.40); White Blood Count 6.01 K/ul (4.8-10.8)
[2025-07-02 06:14] LABS: ANTI-Xa, UFH(UnfractionatedHep 0.35 IU/ml (0.3-0.7)
[2025-07-02 06:23] LABS: Albumin Level 3.3 gm/dl (3.4-5.0); Anion Gap 9.0 (3-11); Bilirubin,Total 1.1 mg/dl (0.2-1.0); Calcium 9.8 mg/dl (8.6-10.3); Carbon Dioxide 25.0 mmol/L (21-32); Chloride 107.0 mmol/L (98-107); Potassium 3.6 mmol/L (3.5-5.1); Sodium 141.0 mmol/L (136-145)
[2025-07-02 06:29] LABS: Alanine Aminotransferase 190.0 U/L (7-52); Albumin Globulin Ratio 1.2 (0.9-2); Alkaline Phosphatase 177.0 U/L (34-104); Blood Urea Nitrogen 8.0 mg/dl (6-23); Creatinine Clr Calc Pharmacy 69.4 ml/min; Globulin 2.8 gm/dl (2.5-4.0); Glucose 119.0 mg/dl (70-99(Fasting)); Total Protein 6.1 gm/dl (6.0-8.3)
--- NOTE | 2025-07-02 20:11 | Hospitalist Progress Note ---
Date of Service July 02, 2025 Assessment & Plan (1) Abnormal gall bladder diagnostic imaging: (2) Abnormal LFTs: (3) Acute pulmonary embolism: (4) History of gastrointestinal bleeding: (5) Hypertension: (6) Osteoarthritis: (7) Abdominal pain: (8) Iron deficiency anemia: (9) History of Brett-en-Y gastric bypass: (10) Lactic acidosis: Plan 74yo female presented to the ER with dizziness with minimal shortness of breath. D-dimer elevated at ER presentation which led to CTA chest showing numerous b/l PEs. 06/30 afternoon developed SEVERE upper abd pain with N/V and acute abnormal LFTs. CT imaging with GB wall thickening. #abnormal LFTs, abnormal gall bladder on multiple imaging modalities, acute severe abd pain/nausea/emesis on 06/30 - -06/30/25 --> LFTs lynn, CT a/p & RUQ u/s with findings suspicious for gall bladder etiology for her acute pain -gen surg consulted, IV fluids started, IV zosyn initiated, NPO status started -HIDA scan abnormal; MRCP without CBD obstruction but CBD is dilated at 11mm and gall bladder again abnormal -fortunately with NPO status, IVF, IV zosyn, etc her pain/nausea/emesis resolved and she cont to improve -diet resumed and tolerating such -IV fluids stopped -IV zosyn continues -in the ideal world she would undergo cholecystectomy as all studies suggest biliary tract cause for her acute abd pain -however, with fresh PEs with considerable clot burden taking her off anticoagulation for lap eve confers high risk -discussed this in detail with gen surg -thus - plan: -will Rx with IV zosyn with the hopes that if she does indeed have cholecystitis she continues to improve with conservative Rx alone -cont low fat diet -daily LFTs (which continue to improve fortunately) -if she fails to improve, or her symptoms recur/worsen, then will pursue IR cholecystostomy tube placement -repeat LFTs in am -repeat CBC in am -appreciate gen surg assistance #abnormal duodenum on CT - -?PUD of the duodenum? -?duodenitis? -pancreatitis causing duodenal abnormalities? (?pancreatitis on MRCP, but lipase levels have been wnl) -cont IV PPI twice daily -follow clinically and low threshold for GI consultation if pain recurs -fortunately no signs of GI bleeding; H/H stable -repeat CBC am #Acute b/l pulmonary emboli - -Unprovoked - no recent surgery, prolonged travel, prolonged immobility, etc. -no famHx of VTE -currently on IV heparin standard dosing -due to gastric bypass status DOAC absorbability is reduced -looking at guidelines from Up-to-Date and after [place] correspondence with our Coumadin clinic a lovenox bridge to coumadin is likely our safest bet for outpatient Rx -b/l LE venous duplex studies negative for DVT -echo with normal LV/RV function -with her persistent Fe deficiency anemia - GI malignancy? other? -will need colonoscopy, etc (due for such in 2025 anyway) -h/o breast ca, but CT chest/abd/pelvis without signs of recurrence -cont heparin drip -if LFTs cont to trend down, if pain stays away, and she remains stable can initiate coumadin this weekend -then ultimately will stop heparin and transition to [place] lovenox #severe upper abd pain - -resolved -see above #Hypertension - -developed relative hypotension in the setting of her acute abd pain -BPs trending up -with possible rapid a.fib on 06/30 will resume beta seema in form of metopro lol; stop atenolol -cont to hold clonidine #Osteoarthritis - -cont gabapentin #History of gastrointestinal bleed - 10/2024 - -EGD at that time did not isolate a source but presumed UGI in origin -has been taking PPI once daily at home -duodenum with ?inflammation on CTA a/p this admit -see discussion above -cont IV PPI twice daily -serial H/H's -consider GI consultation if any drop in H/H, recurrent abd pain, etc. #Depression/anxiety - -Continue Lexpro #Fe deficiency anemia - -with gastric bypass status she will not absorb PO iron -gave venover 300mg IV x 1 on 06/30 -will likely need additional runs in the future -checked B12/folate - both wnl -with ongoing Fe def chronically does she have an underlying GI tract malignancy that could have set her up for the VTE event?? -check fecal occult #Dizziness - -orthostatic BPs negative -no vertigo -etiology uncertain -echo wnl -due to PEs??? but again BPs stable, not tachycardic, etc. -symptoms resolved -monitor for recurrence #?rapid a.fib on 06/30 - -for 30+ minutes had what appeared to be rapid a.fib or 2:1 rapid a.flutter -discussed this with patient -echo this admission wnl -TSH wnl -change atenolol to metoprolol -anticoagulation as above VTE Prophylaxis - IV heparin updated pt's daughter extensively by phone 07/01 cont PT, OT -can d/c to home when medically ready Admission and Anticipated Discharge Date Admission Date: June 29, 2025 Subjective no events tele wnl feels good tolerating her meals no abd pain or N/V walking the hallways no dizziness scant dyspnea on exertion Review of Systems Review of Systems: gen - no fevers or chills cv - no chest pain, no edema pulm - no dyspnea at rest, no cough GI - +stool today, brown (no melena) Physical Exam 2 Physical Exam: gen - lying comfortably in bed, NAD, looks well mouth - MMM neck - no JVD heart - RRR, s1 s2, no murmur lungs - CTA b/l abd - soft NT ND BS+; no HSM; no peritoneal signs ext - no edema, pulses 2+ b/l feet psych - a/o x 3 Results & Data Results & Data Vital Signs (Past 12 Hours) Vital Signs Temp Pulse Pulse Resp BP Pulse Ox Pulse Ox 07/02/25 19:31 36.8 C 80 18 145/83 H 93 07/02/25 15:35 36.7 C 75 19 160/78 H 92 07/02/25 14:13 67 07/02/25 11:06 36.6 C 78 19 148/79 H 94 07/02/25 09:40 94 07/02/25 09:12 61 Pulse Ox O2 Del Method O2 Flow Rate O2 Flow Rate 07/02/25 19:31 Room Air 07/02/25 15:35 Room Air 07/02/25 14:13 07/02/25 11:06 Room Air 07/02/25 09:40 93 0 0 07/02/25 09:12 Laboratory Results Laboratory Results 07/01/25 07/02/25 15:26 05:25 WBC 6.01 RBC 4.49 Hgb 11.6 L Hct 35.6 L MCV 79.3 L MCH 25.8 MCHC 32.6 RDW Std Deviation 51.6 H RDW Coeff of Far[place]q 18.0 H Plt Count 153 MPV 9.8 Heparin Anti-Xa, Unfract 0.53 0.35 Sodium 141 Potassium 3.6 Chloride 107 Carbon Dioxide 25 Anion Gap 9 BUN 8 Creatinine 0.85 Est Cr Clr Drug Dosing 69.4 eGFR 72.30 BUN/Creatinine Ratio 9.4 L Glucose 119 H Calcium 9.8 Total Bilirubin 1.1 H Direct Bilirubin AST 150 H ALT 190 H Alkaline Phosphatase 177 H Total Protein 6.1 Albumin 3.3 L Globulin 2.8 Albumin/Globulin Ratio 1.2 PG Care Time/CCT Total # of Minutes Spent Total Time Spent with Patient: Total time spent is greater than 50% in coordination of care (as documented) at patient's floor/unit and/or counseling patient: Coding Level of Care Code 52939 SUB INP/OBS CARE 3/50MIN Diagnoses Abnormal gall bladder diagnostic imaging R93.2 Abnormal LFTs R79.89 Acute pulmonary embolism I26.99 Acute cor pulmonale presence: unspecified Pulmonary embolism type: unspecified History of gastrointestinal bleeding Z87.19 Hypertension I10 Osteoarthritis M19.90 Abdominal pain R10.9 Iron deficiency anemia D50.9 History of Brett-en-Y gastric bypass Z98.84 Lactic acidosis E87.20 (3) Acute pulmonary embolism Acute cor pulmonale presence: unspecified Pulmonary embolism type: unspecified Qualified Code(s): I26.99 - Other pulmonary embolism without acute cor pulmonale
[2025-07-02] MEDS: METOPROLOL TARTRATE 25 MG TAB PO SCH (20:38)
[2025-07-03 06:16] LABS: ANTI-Xa, UFH(UnfractionatedHep 0.31 IU/ml (0.3-0.7)
[2025-07-03 07:39] LABS: Hematocrit (blood only) 35.8 % (37.0-47.0); Hemoglobin 11.7 g/dl (12.0-16.0)
[2025-07-03 07:44] LABS: Alanine Aminotransferase 129.0 U/L (7-52); Albumin Level 3.3 gm/dl (3.4-5.0); Alkaline Phosphatase 166.0 U/L (34-104); Bilirubin,Total 0.7 mg/dl (0.2-1.0); Total Protein 6.3 gm/dl (6.0-8.3)
[2025-07-03] MEDS: AMPICILLIN/SULBACTAM SOD 3,000 MG/100 ML BAG IV SCH (09:25)
--- NOTE | 2025-07-03 11:30 | Hospitalist Progress Note ---
Date of Service July 03, 2025 Assessment & Plan (1) Abnormal gall bladder diagnostic imaging: (2) Abnormal LFTs: (3) Acute pulmonary embolism: (4) History of gastrointestinal bleeding: (5) Hypertension: (6) Osteoarthritis: (7) Abdominal pain: (8) Iron deficiency anemia: (9) History of Brett-en-Y gastric bypass: (10) Lactic acidosis: Plan 74yo female presented to the ER with dizziness with minimal shortness of breath. D-dimer elevated at ER presentation which led to CTA chest showing numerous b/l PEs. 06/30 afternoon developed SEVERE upper abd pain with N/V and acute abnormal LFTs. CT imaging with GB wall thickening. #abnormal LFTs, abnormal gall bladder on multiple imaging modalities, acute severe abd pain/nausea/emesis on 06/30 - -06/30/25 --> LFTs lynn, CT a/p & RUQ u/s with findings suspicious for gall bladder etiology for her acute pain -gen surg consulted, IV fluids started, IV zosyn initiated, NPO status started -HIDA scan abnormal; MRCP without CBD obstruction but CBD is dilated at 11mm and gall bladder again abnormal -fortunately with NPO status, IVF, IV zosyn, etc her pain/nausea/emesis resolved and she cont to improve -diet resumed and tolerating such without any recurrent GI symptoms -IV fluids stopped -IV zosyn started 07/01 early AM; can transition to more narrow coverage with IV unasyn today; then at d/c transition to PO augmentin -in the ideal world she would undergo cholecystectomy as all studies suggest biliary tract cause for her acute abd pain -however, with fresh PEs with considerable clot burden taking her off anticoagulation for lap eve confers high risk -discussed this in detail with gen surg -thus - plan: -cont IV/PO abx -cont low fat diet -daily LFTs (which continue to improve including today's values) -if her symptoms recur/worsen, then will pursue IR cholecystostomy tube placement - thus far doing great from GI standpoint -repeat LFTs in am -appreciate gen surg assistance #abnormal duodenum on CT - -?PUD of the duodenum? -?duodenitis? -pancreatitis causing duodenal abnormalities? (?pancreatitis on MRCP, but lipase levels have been wnl) -cont PPI twice daily; can switch to PO formulation -H/H stable, heme neg stool -fortunately no signs of GI bleeding #Acute b/l pulmonary emboli - -Unprovoked - no recent surgery, prolonged travel, prolonged immobility, etc. -no famHx of VTE -currently on IV heparin standard dosing -due to gastric bypass status DOAC absorbability is reduced -looking at guidelines from [facility] and after [place] correspondence with our Coumadin clinic a lovenox bridge to coumadin is likely our safest bet for outpatient Rx -b/l LE venous duplex studies negative for DVT -echo with normal LV/RV function -with her persistent Fe deficiency anemia - GI malignancy? other? -will need colonoscopy, etc (due for such in 2025 anyway) -h/o breast ca, but CT chest/abd/pelvis without signs of recurrence -cont heparin drip until tonight at which point will stop such and transition to SC lovenox 100mg BID -start coumadin 5mg daily -[facility] [place] - at discharge -copay is $10 for the lovenox #severe upper abd pain - -resolved -see above #Hypertension - -developed relative hypotension in the setting of her acute abd pain - now resolved -with possible rapid a.fib on 06/30 resumed beta seema in form of metoprolol; stopped atenolol -resumed clonidine #Osteoarthritis - -cont gabapentin #History of gastrointestinal bleed - 10/2024 - -EGD at that time did not isolate a source but presumed UGI in origin -has been taking PPI once daily at home -duodenum with ?inflammation on CTA a/p this admit -see discussion above -cont PPI twice daily -consider GI consultation if any drop in H/H, recurrent abd pain, etc. #Depression/anxiety - -Continue Lexpro #Fe deficiency anemia - -with gastric bypass status she will not absorb PO iron -gave venofer 300mg IV x 1 on 06/30 -will likely need additional runs in the future -checked B12/folate - both wnl -with ongoing Fe def chronically does she have an underlying GI tract malignancy that could have set her up for the VTE event?? -checked fecal occult - negative -consider 1 more dose of venofer before discharge home #Dizziness - -orthostatic BPs negative -no vertigo -etiology uncertain -echo wnl -due to PEs??? but again BPs stable, not tachycardic, etc. -symptoms resolved -monitor for recurrence #?rapid a.fib on 06/30 - -for 30+ minutes had what appeared to be rapid a.fib or 2:1 rapid a.flutter -discussed this with patient -echo this admission wnl -TSH wnl -changed atenolol to metoprolol -anticoagulation as above VTE Prophylaxis - lovenox with coumadin starting later today stopping heparin IV updated pt's daughter extensively by phone 07/01 left message for daughter 07/03 cont PT, OT -can d/c to home when medically ready Admission and Anticipated Discharge Date Admission Date: June 29, 2025 Subjective tele overnight wnl moved bowels today; heme neg stool; stool grossly brown NO abd pain NO nausea/emesis feels good she is anxious about the possibility of going on lovenox and having to do the shots good appetite eating well Review of Systems Review of Systems: gen - no fevers or chills cv - no chest pain pulm - no dyspnea or ZAYAS neuro - no dizziness or lightheadedness Physical Exam Physical Exam: gen - lying comfortably in bed, NAD, looks well once again; obese mouth - MMM neck - no JVD heart - RRR, s1 s2, no murmur lungs - CTA b/l abd - soft NT ND BS+; no HSM; no peritoneal signs ext - no edema, pulses 2+ b/l feet psych - a/o x 3 Results & Data Results & Data Vital Signs (Past 12 Hours) Vital Signs Temp Pulse Pulse Resp BP Pulse Ox O2 Del Method 07/03/25 10:50 36.3 C L 74 19 135/85 92 Room Air 07/03/25 09:05 71 07/03/25 07:22 36.3 C L 60 20 173/83 H 93 Room Air 07/03/25 02:36 36.8 C 64 18 145/84 H 90 Room Air Laboratory Results Laboratory Results - last 24 hr 07/03/25 07/03/25 07/03/25 05:44 11:43 Unknown Hgb 11.7 L Hct 35.8 L PT 10.7 INR 1.0 Total Bilirubin 0.7 Direct Bilirubin 0.3 H AST 65 H ALT 129 H Alkaline Phosphatase 166 H Total Protein 6.3 Albumin 3.3 L Stool Occult Bld Scrn Negative PG Care Time/CCT Total # of Minutes Spent Total Time Spent with Patient: Total time spent is greater than 50% in coordination of care (as documented) at patient's floor/unit and/or counseling patient: Coding Level of Care Code 38563 SUB INP/OBS CARE 3/50MIN Diagnoses Abnormal gall bladder diagnostic imaging R93.2 Abnormal LFTs R79.89 Acute pulmonary embolism I26.99 Acute cor pulmonale presence: unspecified Pulmonary embolism type: unspecified History of gastrointestinal bleeding Z87.19 Hypertension I10 Osteoarthritis M19.90 Abdominal pain R10.9 Iron deficiency anemia D50.9 History of Brett-en-Y gastric bypass Z98.84 Lactic acidosis E87.20 (3) Acute pulmonary embolism Acute cor pulmonale presence: unspecified Pulmonary embolism type: unspecified Qualified Code(s): I26.99 - Other pulmonary embolism without acute cor pulmonale
[2025-07-03 12:27] LABS: INR 1.0 (0.9-1.1); Prothrombin Time 10.7 Seconds (9.0-12.0)
[2025-07-03] MEDS: WARFARIN SOD 5 MG TAB PO ONE (13:01)
[2025-07-03] MEDS ORDERED: ENOXAPARIN INJ 120 MG/0.8 ML SYR SQ SCH (19:00)
[2025-07-03] MEDS: ENOXAPARIN INJ 120 MG/0.8 ML SYR SQ SCH (20:13)
[2025-07-04 06:56] LABS: INR 1.1 (0.9-1.1); Prothrombin Time 11.7 Seconds (9.0-12.0)
[2025-07-04 08:30] LABS: Alanine Aminotransferase 90.0 U/L (7-52); Albumin Globulin Ratio 1.1 (0.9-2); Albumin Level 3.3 gm/dl (3.4-5.0); Alkaline Phosphatase 154.0 U/L (34-104); Anion Gap 7.0 (3-11); Bilirubin,Total 0.5 mg/dl (0.2-1.0); Blood Urea Nitrogen 6.0 mg/dl (6-23); Calcium 9.9 mg/dl (8.6-10.3); Carbon Dioxide 27.0 mmol/L (21-32); Chloride 106.0 mmol/L (98-107); Creatinine Clr Calc Pharmacy 83.8 ml/min; Globulin 3.0 gm/dl (2.5-4.0); Glucose 108.0 mg/dl (70-99(Fasting)); Potassium 3.5 mmol/L (3.5-5.1); Sodium 140.0 mmol/L (136-145); Total Protein 6.3 gm/dl (6.0-8.3)
[2025-07-04] MEDS: WARFARIN SOD 5 MG TAB PO ONE (12:40)
[2025-07-04 15:10] VITALS: BP 164/90; PULSE 56; RESP 18; TEMP 97.3; O2SAT 92
[2025-07-04] MEDS: AMOXICILLIN/CLAVULANATE 875 MG TAB PO ONE (15:24)
--- NOTE | 2025-07-04 17:01 | Discharge Summary ---
Discharge Summary Date of Service July 04, 2025 Principal Dx & Hospital Course #1 = Principal Diagnosis (1) Abnormal gall bladder diagnostic imaging: (2) Abnormal LFTs: (3) Acute pulmonary embolism: (4) History of gastrointestinal bleeding: (5) Hypertension: (6) Osteoarthritis: (7) Abdominal pain: (8) Iron deficiency anemia: (9) History of Brett-en-Y gastric bypass: (10) Lactic acidosis: Plan 74yo female presented to the ER with dizziness with minimal shortness of breath. D-dimer elevated at ER presentation which led to CTA chest showing numerous b/l PEs. 06/30 afternoon developed SEVERE upper abd pain with N/V and acute abnormal LFTs. CT imaging with GB wall thickening. #abnormal LFTs, abnormal gall bladder on multiple imaging modalities, acute severe abd pain/nausea/emesis on 06/30 - -06/30/25 --> LFTs lynn, CT a/p & RUQ u/s with findings suspicious for gall bladder etiology for her acute pain -gen surg consulted, IV fluids started, IV zosyn initiated, NPO status started -HIDA scan abnormal; MRCP without CBD obstruction but CBD is dilated at 11mm and gall bladder again abnormal -fortunately with NPO status, IVF, IV zosyn, etc her pain/nausea/emesis resolved and she cont to improve -diet resumed and tolerating such without any recurrent GI symptoms -IV fluids stopped -IV zosyn started 11/6 early AM; can transition to more narrow coverage with IV unasyn today; then at d/c transition to PO augmentin -in the ideal world she would undergo cholecystectomy as all studies suggest biliary tract cause for her acute abd pain -however, with fresh PEs with considerable clot burden taking her off anticoagulation for lap eve confers high risk -discussed this in detail with gen surg -thus - plan: -cont IV/PO abx -cont low fat diet -daily LFTs (which continue to improve including today's values) -if her symptoms recur/worsen, then will pursue IR cholecystostomy tube placement - thus far doing great from GI standpoint -repeat LFTs in am -appreciate gen surg assistance #abnormal duodenum on CT - -?PUD of the duodenum? -?duodenitis? -pancreatitis causing duodenal abnormalities? (?pancreatitis on MRCP, but lipase levels have been wnl) -cont PPI twice daily; can switch to PO formulation -H/H stable, heme neg stool -fortunately no signs of GI bleeding #Acute b/l pulmonary emboli - -Unprovoked - no recent surgery, prolonged travel, prolonged immobility, etc. -no famHx of VTE -currently on IV heparin standard dosing -due to gastric bypass status DOAC absorbability is reduced -looking at guidelines from Up[facility]to[facility]Date and after [facility] correspondence with our Coumadin clinic a lovenox bridge to coumadin is likely our safest bet for outpatient Rx -b/l LE venous duplex studies negative for DVT -echo with normal LV/RV function -with her persistent Fe deficiency anemia - GI malignancy? other? -will need colonoscopy, etc (due for such in 2025 anyway) -h/o breast ca, but CT chest/abd/pelvis without signs of recurrence -cont heparin drip until tonight at which point will stop such and transition to SC lovenox 100mg BID -start coumadin 5mg daily -refer to coumadin clinic - [facility] - at discharge -copay is $10 for the lovenox #severe upper abd pain - -resolved -see above #Hypertension - -developed relative hypotension in the setting of her acute abd pain - now resolved -with possible rapid a.fib on 06/30 resumed beta seema in form of metoprolol; stopped atenolol -resumed clonidine #Osteoarthritis - -cont gabapentin #History of gastrointestinal bleed - 10/2024 - -EGD at that time did not isolate a source but presumed UGI in origin -has been taking PPI once daily at home -duodenum with ?inflammation on CTA a/p this admit -see discussion above -cont PPI twice daily -consider GI consultation if any drop in H/H, recurrent abd pain, etc. #Depression/anxiety - -Continue Lexpro #Fe deficiency anemia - -with gastric bypass status she will not absorb PO iron -gave venofer 300mg IV x 1 on 06/30 -will likely need additional runs in the future -checked B12/folate - both wnl -with ongoing Fe def chronically does she have an underlying GI tract malignancy that could have set her up for the VTE event?? -checked fecal occult - negative -consider 1 more dose of venofer before discharge home #Dizziness - -orthostatic BPs negative -no vertigo -etiology uncertain -echo wnl -due to PEs??? but again BPs stable, not tachycardic, etc. -symptoms resolved -monitor for recurrence #?rapid a.fib on 06/30 - -for 30+ minutes had what appeared to be rapid a.fib or 2:1 rapid a.darien -discussed this with patient -echo this admission wnl -TSH wnl -changed atenolol to metoprolol -anticoagulation as above VTE Prophylaxis - lovenox with coumadin starting later today stopping heparin IV updated pt's daughter extensively by phone 07/01 left message for daughter 07/03 cont PT, OT -can d/c to home when medically ready Admission HPI Per Admitting Provider Stefanie Paris is a 74 year old female who presents to the ER with dizziness. This morning when she went to get out of bed she sat up and was so dizzy she couldn't stand. She had to lie back down for a while to get her bearings. She initially wondered whether she was over reacting but then decided to go to the living room and call 911. She reports a little shortness of breath but no chest pain. No fever, chills, cough. She had a little headache this afternoon but thinks that was because she missed her morning coffee and has now resolved. No other respiratory, gastrointestinal or urinary symptoms. With hindsight she also reports having a little dizziness with physical therapy on Saturday but felt fine yesterday. In the ER d-dimer was raised and she underwent CT pulmonary angiogram confirming pulmonary emboli. She denies any prior DVT or PE. No calf pain or swelling. No autoimmune conditions. No recent long haul flights or surgeries. She has been having more problems with osteoarthritis since stopping NSAIDs after gastrointestinal bleed in October but has not been immobile and doing usual home tasks such as mowing. Knee osteoarthritis improving with physical therapy. She reports being up to date with all her cancer screenings. 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 She also had a squamous cell skin cancer removed in 2010. She has never smoked and is not on estrogen therapy. She notably had a gastrointestinal bleed in October suspected from NSAID use in setting of gastric bypass. She has been on pantoprazole and off NSAIDs since then. Discharge Exam gen - lying comfortably in bed, NAD, looks well once again; obese mouth - MMM neck - no JVD heart - RRR, s1 s2, no murmur lungs - CTA b/l abd - soft NT ND BS+; no HSM; no peritoneal signs ext - no edema, pulses 2+ b/l feet psych - a/o x 3 Discharge Plan Discharge Items Patient Disposition: Home - Self-Care Reason For Visit: ACUTE PULMONARY EMBOLISM Discharge Diagnosis: 1. bilateral pulmonary emboli 2. acute gall bladder attack; gall bladder sludge 3. abnormal liver function tests - due to #2 - resolved 4. possible episode of rapid atrial fibrillation 5. hypertension 6. history of gastric bypass 7. dizziness/lightheadedness - resolved; due to #1?? 8. iron deficiency Activity: As commented below Activity Comment: light activities only at this time Exercise/Sports: Wait until after follow-up appointment Non-emergency contact: Primary Care Provider and Specialist Call non-emergency contact if: you have any medication questions, your symptoms worsen, your pain is not controlled, your pain is worsening, your pain is unusual for you and your pain is concerning for you Follow-up/Referrals: Saray Hyatt MD, PhD [Pathologist] - (we will refer you to the [facility] for management of your lovenox & warfarin) Matthew Ng DO, FACS [Physician] - (2-3 weeks to discuss timing of a future elective cholecystectomy (removal of gall bladder)) Ann Abbasi MD [Primary Care Provider] - (THIS WEEK for hospital follow-up) Diet: Gluten Free and Low Fat Addtl Attending Provider Instructions: Mrs Paris, You were hospitalized due to bilateral pulmonary emboli blood clots in your lungs. Typically blood clots in the lungs start in the legs, then travel to the lungs via your circulation. Once in the lungs these blood clots cannot travel any where else. Your body will naturally dissolve the blood clots over weeks/several months. The blood thinners you will take will prevent you from developing more/new blood clots. You received IV heparin, then this was changed to lovenox (enoxaparin) injections. We started you on warfarin by mouth on 07/03/25. You received 5mg of warfarin on 07/03, and another 5mg on 07/04. Your stay was complicated by the development of severe abdominal pain and nausea/vomiting. Multiple imaging studies suggested that you had a severe gall bladder attack. Your symptoms/pain improved then resolved with bowel rest, IV fluids, and IV antibiotics. General surgery saw you in consult. They recommended surgery to remove the gall bladder but not at this time (due to how recent you had the pulmonary emboli blood clots). A walking oxygen test on day of discharge showed that you do not need any supplemental oxygen at home. Finally, on the afternoon you had the severe gall bladder attack, it appeared that you had about an hour run of an abnormal heart rhythm called atrial fibrillation. After going back to normal rhythm you stayed in normal rhythm until discharge. Recommendations - 1. Starting the AM of 07/05/25 - -take lovenox (enoxaparin) shots - 100mg about 12 hours apart -inject into the wall of your belly as shown by our nursing staff -rotate the site/location of where you are doing the injections -you may have bruising or even a small lump under the skin from the injections -STAY ON THE INJECTIONS until the Anticoagulation clinic tells you to stop 2. Warfarin - -take 5mg daily starting 07/05/25 -plan to take your warfarin each afternoon about the same time 3. We will refer you to the Anticoagulation clinic at [facility]. An appointment date/time will be set up for you to monitor your lovenox and your warfarin levels ("INR"). This will likely be in the next 2-3 days. 4. Antibiotics for your gall bladder attack - -amoxicillin-clavulanate 875mg twice daily x 6 days starting the AM of 07/05/25 -take with food -most common side effect - diarrhea 5. Increase your pantoprazole to 40mg twice daily. 6. Please plan to pause your outpatient physical therapy in [place] until you see your family doctor and they feel it is safe to resume it (likely next 1- 2 weeks). 7. Refrain from alcohol use as it interacts heavily with warfarin. 8. Follow-up appointments - see other section. 9. Low-fat diet unless otherwise directed by your outpatient doctors/providers. See handout. Return to [facility] if - -you have fevers over 100 degrees -you have severe diarrhea (3 or more liquid stools in 24 hours) -you have bleeding from any location -you have worsening shortness of breath -you have recurrent abdominal pains that remind you of the attack you had in the hospital -any other concerns It was our pleasure to care for you! -Marcelo [place] [employer] Provider Instructions: Warfarin Instructions: * Warfarin is a medicine prescribed to prevent blood clots * Warfarin will thin your blood and help prevent new clots * Take your medications exactly as directed * Never skip a dose. Never take a double dose. If you miss a dose, take it as soon as you remember * It is important for your doctor to monitor your INR. This is a lab test that tells you the thickness & thin-ness of your blood * We will refer you to the [facility] to monitor your warfarin (and lovenox injections) Risk of Adverse Drug Reactions and Interactions: * Warfarin increases your risk of bleeding * The food you eat and other medications you take can affect how Warfarin works in your body * Ask your doctor about daily aspirin therapy * It is very important to talk with your doctor about all of the other medicines, antibiotics, vitamins or herbal products that you are taking * All of your medication must be approved by your doctor, including new medicines, as well as medicines you have taken before you started taking Warfarin Diet: * In order for Warfarin to work properly, it is important to keep your intake of Vitamin K as consistent as possible * You should avoid any sudden change in Vitamin K intake * Report any significant changes in your diet or weight to your doctor Call your Primary Care doctor if you experience any of the following: * Swelling or Pain in your leg * Sudden, continuous pain deep in a muscle * Pain that worsens when you are active or when you stand still for a long time * Chest Pain * Sudden Shortness of Breath * Rapid or pounding heart beat * Fainting * Dizziness * Cough with blood or bloody sputum * Sweating more than normal * Bruises * Heavy or uncontrolled bleeding * Blood in your urine, stool or vomit * Black or tarry stools * Heavy nosebleeds Caring for Your Self at Home: * Avoid sitting, standing or lying down for long periods without moving your legs and feet * When traveling by car, stop to get out and move around at least once every 3 hours * On long airplane, train or bus rides, get up and move around when possible * If you can't get up, wiggle your toes and tighten your calves to keep your blood moving Pending Studies at Discharge: No Stand-Alone Forms: [facility], Smoking Cessation Medications and DC Order Prescriptions: New enoxaparin [Lovenox] 100 mg/mL syringe 100 mg subcut Q12H 7 Days Qty: 14 1RF warfarin 5 mg tablet 5 mg PO DAILY Qty: 30 2RF amoxicillin-pot clavulanate 875-125 mg tablet 1 tab PO BID 6 Days Qty: 12 0RF Rx Instructions: start 07/05/25 AM; take with food. Continued clonidine HCl 0.1 mg tablet 0.1 mg PO BID potassium chloride 10 mEq tablet extended release 10 meq PO DAILY montelukast 10 mg tablet 10 mg PO HS escitalopram oxalate 10 mg tablet 15 mg PO DAILY rosuvastatin 10 mg tablet 10 mg PO DAILY gabapentin 100 mg capsule 200 mg PO HS atenolol 25 mg tablet 25 mg PO DAILY Qty: 1 0RF Changed pantoprazole 40 mg tablet,delayed release (DR/EC) 40 mg PO BID Qty: 60 2RF Discharge Orders: Discharge Order (Routine); Ordered 07/04/25 Ordered By: Marcelo Sharp/Other Patient Handouts: Vitamin K Diet for Warfarin, Enoxaparin Prefilled Syringe, Pulmonary Embolism, What to Know When Taking�Warfarin, AFib, ED Diet, Low Fat, ED Gallstones with Biliary Colic Admission Data Admit Date/Time: 06/29/25 14:03 Attending Provider: Marcelo Marvin Admit Provider: Marcelo Gore Primary Care Provider: Ann Abbasi Other Providers: Marcelo Gore; Matthew Ng Other Interventions: Discharge Summary Assessment (RN) Last Done: 07/04/25 11:33 Hospital Stay Data Consultations 06/29/25 13:58 ED Decision to Admit Stat 06/30/25 19:31 Consult General Surgery Routine Procedures Performed Operation Date: 07/02/25 10:55 <No data on this case meets the specified criteria> Diagnostic Imagining Performed 06/29/25 10:51 CT for pulmonary embolism PE [CT angio chest PE protocol] Stat 06/29/25 11:00 CT head/brain wo con Stat 06/29/25 20:10 US venous doppler LE LT Routine 06/30/25 11:51 US venous doppler LE RT Routine 06/30/25 16:37 CTA abd pelvis wo/w con [CT angio abd pelvis wo/w con] Stat 06/30/25 19:24 US gallbladder Stat 07/01/25 07:36 MR MRCP Routine Pending Results Patient Have Any Pending Studies at Discharge: No Discharge Instructions Given to Patient (Per Discharging Provider) Mrs Paris, Adalid were hospitalized due to bilateral pulmonary emboli blood clots in your lungs. Typically blood clots in the lungs start in the legs, then travel to the lungs via your circulation. Once in the lungs these blood clots cannot travel any where else. Your body will naturally dissolve the blood clots over weeks/several months. The blood thinners you will take will prevent you from developing more/new blood clots. You received IV heparin, then this was changed to lovenox (enoxaparin) injections. We started you on warfarin by mouth on 07/03/25. You received 5mg of warfarin on 07/03, and another 5mg on 07/04. Your stay was complicated by the development of severe abdominal pain and nausea/vomiting. Multiple imaging studies suggested that you had a severe gall bladder attack. Your symptoms/pain improved then resolved with bowel rest, IV fluids, and IV antibiotics. General surgery saw you in consult. They recommended surgery to remove the gall bladder but not at this time (due to how recent you had the pulmonary emboli blood clots). A walking oxygen test on day of discharge showed that you do not need any supplemental oxygen at home. Finally, on the afternoon you had the severe gall bladder attack, it appeared that you had about an hour run of an abnormal heart rhythm called atrial fibrillation. After going back to normal rhythm you stayed in normal rhythm until discharge. Recommendations - 1. Starting the AM of 07/05/25 - -take lovenox (enoxaparin) shots - 100mg about 12 hours apart -inject into the wall of your belly as shown by our nursing staff -rotate the site/location of where you are doing the injections -you may have bruising or even a small lump under the skin from the injections -STAY ON THE INJECTIONS until the Anticoagulation clinic tells you to stop 2. Warfarin - -take 5mg daily starting 07/05/25 -plan to take your warfarin each afternoon about the same time 3. We will refer you to the Anticoagulation clinic at [facility]. An appointment date/time will be set up for you to monitor your lovenox and your warfarin levels ("INR"). This will likely be in the next 2-3 days. 4. Antibiotics for your gall bladder attack - -amoxicillin-clavulanate 875mg twice daily x 6 days starting the AM of 07/05/25 -take with food -most common side effect - diarrhea 5. Increase your pantoprazole to 40mg twice daily. 6. Please plan to pause your outpatient physical therapy in [place] until you see your family doctor and they feel it is safe to resume it (likely next 1- 2 weeks). 7. Refrain from alcohol use as it interacts heavily with warfarin. 8. Follow-up appointments - see other section. 9. Low-fat diet unless otherwise directed by your outpatient doctors/providers. See handout. Return to [facility] if - -you have fevers over 100 degrees -you have severe diarrhea (3 or more liquid stools in 24 hours) -you have bleeding from any location -you have worsening shortness of breath -you have recurrent abdominal pains that remind you of the attack you had in the hospital -any other concerns It was our pleasure to care for you! -Marcelo Marvin Coding Diagnoses Abnormal gall bladder diagnostic imaging R93.2 Abnormal LFTs R79.89 Acute pulmonary embolism I26.99 Acute cor pulmonale presence: unspecified Pulmonary embolism type: unspecified History of gastrointestinal bleeding Z87.19 Hypertension I10 Osteoarthritis M19.90 Abdominal pain R10.9 Iron deficiency anemia D50.9 History of Brett-en-Y gastric bypass Z98.84 Lactic acidosis E87.20
[2025-07-04] MEDS: ENOXAPARIN 100 MG/1ML SYR SQ SCH (18:24)
== END 2025-07-04 18:29 | disposition home or self-care (01) | DRG 176 ==
LOC: ED 09:14 → 4W 14:03 → SUATTDRO 14:03 → 4W 14:38